=== PATIENT | female | born 1995 | race Caucasian/White ===

== ENCOUNTER → 2020-04-20 14:01 | Outpatient (BNVA) | payer MEDICAID, SELFPAY | PROVIDERS: PCP Family Medicine; Referring Provider Family Medicine; Visit Provider Physician Assistant | DX: A04.8 Other specified bacterial intestinal infections (principal); K52.9 Noninfective gastroenteritis and colitis, unspecified | CPT/HCPCS: 99212 ==

== ENCOUNTER 2020-06-20 09:56 | Outpatient (REF) | payer MEDICAID, SELFPAY ==
[2020-06-20 11:07] LABS: Alanine Aminotransferase 21 U/L (0-31); Albumin Level 4.1 g/dL (3.5-5.0); Alkaline Phosphatase 49 U/L (39-117); Anion Gap 12 (12-20); Aspartate Amino Transferase 18 U/L (5-31); Bilirubin Total 0.2 mg/dL (0.0-1.0); Blood Urea Nitrogen 10 mg/dL (9-16); Calcium 8.4 mg/dL (8.4-10.2); Carbon Dioxide 22 mmol/L (22-29); Chloride 108 mmol/L (96-108); Estimated Glomerular Filt Rate > 60; Glucose Random 92 mg/dL (60-115); Potassium 3.8 mmol/l (3.3-5.1); Sodium 138 mmol/L (135-145); Total Protein 6.6 g/dL (6.5-8.0)
[2020-06-20 11:52] LABS: Erythrocyte Sedimentation Rate 11 MM/HR (0-20)
[2020-06-21 22:43] LABS: Transglutaminase IgA 1 U/mL
[2020-06-22 13:37] LABS: CRP High Sensitivity 4.3 mg/L
[2020-06-24 18:07] LABS: Endomysial IgA Antibody Negative (Negative)
== END 2020-06-20 09:57 | disposition home or self-care (01) ==
LOC: HO.LAB 09:56
PROVIDERS: PCP Family Medicine; Visit Provider Physician Assistant
DX: R19.7 Diarrhea, unspecified (principal); R10.11 Right upper quadrant pain
CPT/HCPCS: 36415; 80053; 83516; 85652; 86141; 86255; 86256

== ENCOUNTER 2020-06-22 14:53 | Outpatient (REF) | payer MEDICAID, SELFPAY ==
[2020-06-22 16:08] LABS: Leukocytes Stool Qualitative NEGATIVE (NEGATIVE)
[2020-06-23 08:04] LABS: CDIFF Ag Negative (Negative); CDIFF Internal ctrl Dots and bkg OK (V); CDiff Toxin Negative (Negative)
== END 2020-06-22 14:54 | disposition home or self-care (01) ==
LOC: HO.LNP 14:53
PROVIDERS: Visit Provider Physician Assistant
DX: R19.7 Diarrhea, unspecified (principal); A04.8 Other specified bacterial intestinal infections
CPT/HCPCS: 87045; 87046; 87324; 87329; 87338; 87449; 89055

== ENCOUNTER → 2020-07-06 13:39 | Outpatient (BNVA) | payer MEDICAID, SELFPAY | PROVIDERS: PCP Family Medicine; Visit Provider Physician Assistant ==

== ENCOUNTER 2020-09-22 16:02 | Outpatient (REF) | payer MEDICAID, SELFPAY | END 2020-09-22 16:03 | disposition home or self-care (01) | LOC: HO.LAB 16:02 | PROVIDERS: PCP Family Medicine; Visit Provider Physician Assistant | DX: Z13.89 Encounter for screening for other disorder (principal) ==

== ENCOUNTER 2020-09-23 18:12 | Outpatient (REF) | payer MEDICAID, SELFPAY | END 2020-09-23 18:13 | disposition home or self-care (01) | LOC: HO.LNP 18:12 | PROVIDERS: Visit Provider Physician Assistant | DX: A04.8 Other specified bacterial intestinal infections (principal) | CPT/HCPCS: 87338 ==

== ENCOUNTER → 2020-10-08 11:06 | Outpatient (BNVA) | payer MEDICAID, SELFPAY | PROVIDERS: Visit Provider Physician Assistant ==

== ENCOUNTER 2020-12-20 02:38 | Emergency (ER) | payer MEDICAID, SELFPAY ==
--- NOTE | ~2020-12-20 | XR_ITS ---
EXAMINATION: XR CHEST CLINICAL INFORMATION: Shortness of breath COMPARISON: 03/01/2018 TECHNIQUE: Frontal view of the chest was obtained. FINDINGS: The lungs are well expanded. There is no focal consolidation, edema, or effusion. No pneumothorax. The cardiomediastinal silhouette is within normal limits. No acute osseous abnormality. XR/XR chest 1V IMPRESSION: Clear lungs.
[2020-12-20 03:21] VITALS: BP 117/73; PULSE 99; RESP 18; TEMP 36.7; O2SAT 100; BMI 36.3
--- NOTE | 2020-12-20 04:26 | ECG_ITS ---
Test Reason : FLANK PAIN Blood Pressure : / mmHG Vent. Rate : 092 BPM Atrial Rate : 092 BPM P-R Int : 130 ms QRS Dur : 084 ms QT Int : 362 ms P-R-T Axes : 030 061 032 degrees QTc Int : 447 ms Normal sinus rhythm with sinus arrhythmia Cannot rule out Anterior infarct , age undetermined Abnormal ECG When compared with ECG of 11-NOV-2017 07:34, No significant change was found Referred By: Bonny Castro Electronically Signed By:AMILCAR REYES
[2020-12-20 05:00] LABS: Basophils Percent Auto 0.4 % (0-2); Hemoglobin 12.8 g/dl (12.0-16.0); PLT CLUMP 1; Red Cell Distribution Width 13.7 % (11.0-16.0); SCAN SMEAR FLAG 1
[2020-12-20] MEDS: 0.9 % Sodium Chloride 1,000 ML 999 ML IV (05:01)
[2020-12-20 05:02] LABS: Eosinophils Absolute Auto 0.7 X10*3/uL (0.0-0.4); Eosinophils Percent Auto 8.4 % (0-4); Hematocrit 40.5 % (37-47); Lymphocytes Absolute Auto 1.9 X10*3/uL (1.2-4.9); Lymphocytes Percent Auto 21.9 % (20-40); Mean Corpuscular HGB Conc 31.6 g/dl (31.0-35.0); Mean Corpuscular Volume 85.4 fL (80-98); Mean Platelet Volume 11.1 fL (9.4-12.3); Monocytes Absolute Auto 0.5 X10*3/uL (0.1-1.2); Monocytes Percent Auto 5.3 % (2-11); Neutrophils Absolute Auto 5.5 X10*3/uL (2.0-8.3); Platelet Count 230 X10*3/uL (160-400); Red Blood Count 4.74 X10*6/uL (4.20-5.50); White Blood Count 8.5 X10*3/uL (4.8-10.8)
[2020-12-20 05:05] LABS: MANUAL DIFF FLAG NO
--- NOTE | 2020-12-20 05:08 | ED_ITS ---
HPI - Abdominal Pain General Chief Complaint: Abdominal Pain Stated Complaint: abd pain 3 days Time Seen by Provider: 12/20/20 04:25 History of Present Illness HPI narrative: Patient is a 25-year-old female history of having chest pain on the left lower rib area. Radiating to the mid axillary area. Radiating to the chest. Patient denies any diaphoresis. The pain is been ongoing for few days. Not associated with coughing, congestion, upper respiratory symptoms. Never had a blood clot. Never had a pneumothorax. The pain is sharp in nature. Patient is from home. No abdominal pain no diarrhea. Positive nausea. Currently rates the pain as 7/10. Related Data Home Medications Medication Instructions Recorded Confirmed budesonide 90 mcg/actuation breath 1 inh INHALATION BID 04/20/20 07/06/20 activated powder inhaler levothyroxine 50 mcg tablet 50 mcg PO DAILY 04/20/20 04/20/20 montelukast 10 mg tablet 10 mg PO DAILY 04/20/20 Previous Rx's Medication Instructions Recorded Saccharomyces boulardii 250 mg 250 mg PO DAILY 30 Days #30 cap 07/06/20 capsule bismuth subsalicylate 262 mg 2 tab PO QID 14 Days #112 tab 07/06/20 chewable tablet doxycycline hyclate 100 mg tablet 100 mg PO BID 14 Days #28 tab 07/06/20 metronidazole 250 mg tablet 250 mg PO QID 14 Days #56 tab 07/06/20 omeprazole 20 mg capsule,delayed 20 mg PO BID 14 Days #28 cap 07/06/20 release dicyclomine 10 mg capsule 10 mg PO TID #90 cap 11/03/20 dicyclomine 10 mg capsule 10 mg PO TID #90 cap 12/16/20 ibuprofen 400 mg PO Q6H PRN #20 tab 12/20/20 Allergies Allergy/AdvReac Type Severity Reaction Status Date / Time No Known Allergies Allergy Unverified 10/08/20 11:07 Review of Systems Review of Systems No fever no chills no diaphoresis. No family history of cardiac issues. No history diabetes, hypertension, mi, family history of [place]. No history smoking. No history of recreational drug use. All systems reviewed otherwise negative Physical Exam Vital Signs: Vital Signs: Last Vital Signs Temp 98.1 F 12/20/20 03:21 Pulse 99 07/11/21 03:21 Resp 18 12/20/20 03:21 BP 117/73 12/20/20 03:21 Pulse Ox 100 12/20/20 03:21 Body Mass Index 36.3 Appearance: Alert. Oriented X3. No acute distress. Eyes: Pupils equal, round and reactive to light. ENT: Pharynx normal. Neck: Normal inspection. Neck supple. No lymph nodes noted. No crepitus CVS: Normal heart rate and rhythm. Pulses normal. Normal S1 and S2 Respiratory: No respiratory distress. Breath sounds normal. No Wheezing. No ra les Abdomen: Soft and nontender. No rigidity. No distention. good BS x4 Skin: Skin warm and dry. Normal skin color. Normal skin turgor. Extremities: No lower extremity edema. Neurovascular intact to all extremities. No Lacerations. No Rash Neuro: Oriented X 3. No motor deficit. No sensory deficit. Moving all extermities. No slurred speech MDM - Abdominal Pain MDM Narrative Medical decision making narrative: Patient's D-dimer is less than 200 no evidence for PE in the setting of low risk. Patient's chest x-ray showed no evidence of pneumonia pneumothorax. Patient's electrolytes unremarkable LFTs are normal. Lipase is normal no evidence of pancreatitis. Will discharge patient home close follow-up on an outpatient basis. Urine showed no signs of infection. test negative unlikely ectopic. Will discharge patient home with Motrin. Differential Diagnosis Differential diagnosis: Likely abdominal pain, acute appendicitis, bowel perforation, constipation and gastritis Medical Records Attestation: I reviewed the patient's medical records. Lab Data Attestation: I reviewed the patient's lab results. Result diagrams: 12/20/20 04:55 12/20/20 05:45 Labs: Lab Results 12/20/20 12/20/20 12/20/20 Range/Units 04:55 04:55 05:15 WBC 8.5 (4.8-10.8) X10*3/uL RBC 4.74 (4.20-5.50) X10*6/uL Hgb 12.8 (12.0-16.0) g/dl Hct 40.5 (37-47) % MCV 85.4 (80-98) fL MCH 27.0 (27.0-33.0) pg MCHC 31.6 (31.0-35.0) g/dl RDW 13.7 (11.0-16.0) % Plt Count 230 (160-400) X10*3/uL MPV 11.1 (9.4-12.3) fL Immature Gran % (Auto) 0.0 (0.0-0.4) % Neut % (Auto) 64.0 (45-73) % Lymph % (Auto) 21.9 (20-40) % [place] % (Auto) 5.3 (2-11) % Eos % (Auto) 8.4 H (0-4) % Baso % (Auto) 0.4 (0-2) % Lymph # (Auto) 1.9 (1.2-4.9) X10*3/uL [place] # (Auto) 0.5 (0.1-1.2) X10*3/uL Eos # (Auto) 0.7 H (0.0-0.4) X10*3/uL Baso # (Auto) 0.0 (0.0-0.2) X10*3/uL Abs Immat Gran (auto) 0.00 (0.00-0.03) X10*3/uL Absolute Neuts (auto) 5.5 (2.0-8.3) X10*3/uL Absolute Nucleated RBC 0.000 (0.0-0.012) X10*3/uL Nucleated RBC % (auto) 0.0 (0.0-0.2) /100WBC D-Dimer < 200 NG/ML Sodium (135-145) mmol/L Potassium (3.3-5.1) mmol/L Chloride (96-108) mmol/L Carbon Dioxide (22-29) mmol/L Anion Gap (12-20) BUN (9-16) mg/dL Creatinine (0.5-1.4) mg/dL Estim Creat Clear Calc Estimated GFR Random Glucose (60-115) mg/dL Calcium (8.4-10.2) mg/dL Total Bilirubin (0.0-1.0) mg/dL AST (5-31) U/L ALT (0-31) U/L Alkaline Phosphatase (39-117) U/L Total Protein (6.5-8.0) g/dL Albumin (3.5-5.0) g/dL Lipase (8-78) U/L Urine Color YELLOW Urine Appearance CLEAR Urine pH 6.0 (5.0-8.0) Ur Specific [place] 1.010 (1.005-1.025) Urine Protein NEG (NEG-TRACE) MG/DL Urine Glucose (UA) NEG (NEG) MG/DL Urine Ketones NEG (NEG) MG/DL Urine Blood NEG (NEG) Urine Nitrite NEG (NEG) Ur Leukocyte Esterase NEG (NEG) Urine Test (NEGATIVE) 12/20/20 12/20/20 Range/Units 05:15 05:45 WBC (4.8-10.8) X10*3/uL RBC (4.20-5.50) X10*6/uL Hgb (12.0-16.0) g/dl Hct (37-47) % MCV (80-98) fL MCH (27.0-33.0) pg MCHC (31.0-35.0) g/dl RDW (11.0-16.0) % Plt Count (160-400) X10*3/uL MPV (9.4-12.3) fL Immature Gran % (Auto) (0.0-0.4) % Neut % (Auto) (45-73) % Lymph % (Auto) (20-40) % [place] % (Auto) (2-11) % Eos % (Auto) (0-4) % Baso % (Auto) (0-2) % Lymph # (Auto) (1.2-4.9) X10*3/uL [place] # (Auto) (0.1-1.2) X10*3/uL Eos # (Auto) (0.0-0.4) X10*3/uL Baso # (Auto) (0.0-0.2) X10*3/uL Abs Immat Gran (auto) (0.00-0.03) X10*3/uL Absolute Neuts (auto) (2.0-8.3) X10*3/uL Absolute Nucleated RBC (0.0-0.012) X10*3/uL Nucleated RBC % (auto) (0.0-0.2) /100WBC D-Dimer NG/ML Sodium 140 (135-145) mmol/L Potassium 4.0 (3.3-5.1) mmol/L Chloride 108 (96-108) mmol/L Carbon Dioxide 24 (22-29) mmol/L Anion Gap 12 (12-20) BUN 10 (9-16) mg/dL Creatinine 0.80 (0.5-1.4) mg/dL Estim Creat Clear Calc 100.2 Estimated GFR > 60 Random Glucose 86 (60-115) mg/dL Calcium 9.0 D (8.4-10.2) mg/dL Total Bilirubin 0.4 (0.0-1.0) mg/dL AST 16 (5-31) U/L ALT 16 (0-31) U/L Alkaline Phosphatase 46 (39-117) U/L Total Protein 6.7 (6.5-8.0) g/dL Albumin 4.0 (3.5-5.0) g/dL Lipase 31 (8-78) U/L Urine Color Urine Appearance Urine pH (5.0-8.0) Ur Specific [place] (1.005-1.025) Urine Protein (NEG-TRACE) MG/DL Urine Glucose (UA) (NEG) MG/DL Urine Ketones (NEG) MG/DL Urine Blood (NEG) Urine Nitrite (NEG) Ur Leukocyte Esterase (NEG) Urine Test NEGATIVE (NEGATIVE) Discharge Plan Discharge Clinical Impression: Acute chest wall pain Patient Disposition: Home, Self-Care Instructions: Chest Wall Pain (ED) Prescriptions: New ibuprofen 400 mg tablet 400 mg PO Q6H PRN (Reason: pain) Qty: 20 RF: 0 No Action dicyclomine 10 mg capsule 10 mg PO TID Qty: 90 RF: 0 dicyclomine 10 mg capsule 10 mg PO TID Qty: 90 RF: 0 montelukast [Singulair] 10 mg tablet 10 mg PO DAILY RF: 0 Pulmicort Flexhaler 90 mcg/actuation aerosol powdr breath activated 1 inh inhalation BID RF: 0 levothyroxine 50 mcg tablet 50 mcg PO DAILY RF: 0 omeprazole 20 mg capsule,delayed release(DR/EC) 20 mg PO BID 14 Days Qty: 28 RF: 0 bismuth subsalicylate [Bismuth] 262 mg tablet,chewable 2 tab PO QID 14 Days Qty: 112 RF: 0 metronidazole 250 mg tablet 250 mg PO QID 14 Days Qty: 56 RF: 0 doxycycline hyclate 100 mg tablet 100 mg PO BID 14 Days Qty: 28 RF: 0 Saccharomyces boulardii [Florastor] 250 mg capsule 250 mg PO DAILY 30 Days Qty: 30 RF: 5 Referrals: Becky Mackenzie MD [Primary Care Provider] - 2 days [facility] Past Medical History Attestation statement: The following information was validated with the patient. Medical History Asthma dependent on inhaled steroids Chronic diarrhea IBS (irritable bowel syndrome) Family History Family History Mother No problems noted. Social History Social History Household Members: Family Household Members Other:: single -lives with her family Alcohol intake: current Alcohol intake frequency: a few times a month Advance Directives: No Patient : No Current occupational status: unemployed
[2020-12-20 05:22] LABS: Appearance Urine CLEAR; Color Urine YELLOW; Glucose Urine UA NEG (NEG); Leukocyte Esterase Urine NEG (NEG); Nitrite Urine NEG (NEG); Urine Blood NEG (NEG); Urine Ketones NEG (NEG); Urine Protein NEG (NEG-TRACE)
[2020-12-20 05:22] LABS: D Dimer < 200 NG/ML
[2020-12-20 05:24] LABS: UPreg QC Valid YES; Urine Pregnancy NEGATIVE (NEGATIVE)
[2020-12-20 06:23] LABS: Alanine Aminotransferase 16 U/L (0-31); Alkaline Phosphatase 46 U/L (39-117); Anion Gap 12 (12-20); Aspartate Amino Transferase 16 U/L (5-31); Bilirubin Total 0.4 mg/dL (0.0-1.0); Blood Urea Nitrogen 10 mg/dL (9-16); Carbon Dioxide 24 mmol/L (22-29); Chloride 108 mmol/L (96-108); Creatinine Clr Calc Pharmacy 100.2; Estimated Glomerular Filt Rate > 60; Glucose Random 86 mg/dL (60-115); Lipase 31 U/L (8-78); Sodium 140 mmol/L (135-145); Total Protein 6.7 g/dL (6.5-8.0)
== END 2020-12-20 06:48 | disposition home or self-care (01) ==
PROVIDERS: Emergency Provider Emergency Medicine Emergency Medical Services; PCP Family Medicine
DX: R07.89 Other chest pain (principal); J45.909 Unspecified asthma, uncomplicated; Z79.51 Long term (current) use of inhaled steroids
CPT/HCPCS: 36415; 71045; 80053; 81003; 81025; 83690; 85025; 85379; 93005; 96360; 99283; 99284

== ENCOUNTER 2020-12-22 10:35 | Outpatient (REF) | payer MEDICAID, SELFPAY ==
[2020-12-23 13:51] LABS: H Pylori Breath Test NOT DETECTED (NOT DETECTED)
== END 2020-12-22 10:36 | disposition home or self-care (01) ==
LOC: HO.LNP 10:35
PROVIDERS: Physician Assistant; PCP Family Medicine; Referring Provider Family Medicine; Visit Provider Internal Medicine Gastroenterology
DX: A04.8 Other specified bacterial intestinal infections (principal)
CPT/HCPCS: 83013

== ENCOUNTER → 2021-03-04 10:03 | Outpatient (BNVA) | payer MEDICAID, SELFPAY | PROVIDERS: PCP Family Medicine; Referring Provider Family Medicine; Visit Provider Physician Assistant ==

== ENCOUNTER 2022-03-09 13:14 | Emergency (ER) | payer MEDICAID, SELFPAY ==
--- NOTE | ~2022-03-09 | XR_ITS ---
EXAMINATION: XR CHEST CLINICAL INFORMATION: Chest pain. COMPARISON: 12/20/2020 chest radiograph. TECHNIQUE: 2 views of the chest were obtained. FINDINGS: No significant abnormality is noted involving the heart, lungs, mediastinum, bony thorax or soft tissues. XR/XR chest 2V IMPRESSION: No acute cardiopulmonary process.
--- NOTE | 2022-03-09 13:16 | ECG_ITS ---
Test Reason : chest pain Blood Pressure : / mmHG Vent. Rate : 095 BPM Atrial Rate : 095 BPM P-R Int : 122 ms QRS Dur : 074 ms QT Int : 328 ms P-R-T Axes : -03 049 030 degrees QTc Int : 412 ms Normal sinus rhythm Normal ECG When compared with ECG of 20-DEC-2020 04:59, No significant change was found Referred By: Generic ED Physician Electronically Signed By:PONCE IGLESIAS
[2022-03-09 14:07] VITALS: BP 119/86; PULSE 95; RESP 16; TEMP 36.3; O2SAT 100; BMI 40.4
[2022-03-09 14:33] LABS: MANUAL DIFF FLAG NO
[2022-03-09 14:37] LABS: Basophils Percent Auto 0.4 % (0-2); Eosinophils Absolute Auto 0.3 X10*3/uL (0.0-0.4); Eosinophils Percent Auto 3.3 % (0-4); Hematocrit 40.7 % (37.0-47.0); Hemoglobin 12.5 g/dl (12.0-16.0); Imm Gran Abs Auto 0.03 X10*3/uL (0.00-0.03); Imm Gran Pct Auto 0.4 % (0.0-0.4); Lymphocytes Absolute Auto 1.3 X10*3/uL (1.2-4.9); Lymphocytes Percent Auto 16.1 % (20-40); Mean Corpuscular HGB Conc 30.7 g/dl (31.0-35.0); Mean Corpuscular Hemoglobin 25.9 pg (27.0-33.0); Mean Corpuscular Volume 84.3 fL (80.0-98.0); Mean Platelet Volume 11.1 fL (9.4-12.3); Monocytes Absolute Auto 0.4 X10*3/uL (0.1-1.2); Monocytes Percent Auto 5.5 % (2-11); Neutrophils Absolute Auto 5.9 x10*3/uL (2.0-8.3); Neutrophils Percent Auto 74.3 % (45-73); Platelet Count 245 X10*3/uL (160-400); Red Blood Count 4.83 X10*6/uL (4.20-5.50); White Blood Count 7.9 X10*3/uL (4.8-10.8)
[2022-03-09 14:54] LABS: Anion Gap 13 (12-20); Blood Urea Nitrogen 12 mg/dL (9-16); Calcium 8.9 mg/dL (8.4-10.2); Carbon Dioxide 25 mmol/L (22-29); Chloride 105 mmol/L (96-108); Creatinine Clr Calc Pharmacy 114.1; Estimated Glomerular Filt Rate > 60; Glucose Random 82 mg/dL (60-115); Potassium 4.2 mmol/L (3.3-5.1); Sodium 139 mmol/L (135-145)
[2022-03-09 15:00] LABS: Troponin-I High Sensitivity < 3.5 ng/L (<3.5-17.0)
[2022-03-09 23:52] VITALS: BP 118/63; PULSE 86; RESP 18; TEMP 36.5; O2SAT 100
--- NOTE | 2022-03-10 00:55 | ED_ITS ---
HPI - General Adult General Chief complaint: General Medical Stated complaint: Sharp chest pain L side of chest for a few days Time Seen by Provider: 03/10/22 01:21 Source: patient Mode of arrival: ambulatory Limitations: no limitations History of Present Illness HPI narrative: 26-year-old female presents for 3 days of intermittent sharp stabbing pain to the left nipple and breast. Patient does not report any nipple discharge, trauma, or . Does not report any abnormal breast tissue or lumps or masses. Onset (ago): day(s) (3) Location: chest (Left breast) Severity: severe Severity scale (1-10): 10 Quality: stabbing Pain Consistency: intermittent and now resolved Relieving factors: none Exacerbating factors: none Associated symptoms: denies other symptoms Treatments prior to arrival: none Related Data Home Medications Medication Instructions Recorded Confirmed budesonide 90 mcg/actuation breath 1 inh inhalation BID 04/20/20 03/04/21 activated powder inhaler (Pulmicort Flexhaler) levothyroxine 50 mcg tablet 50 mcg PO DAILY 04/20/20 03/04/21 montelukast 10 mg tablet 10 mg PO DAILY 04/20/20 03/04/21 (Singulair) Previous Rx's Medication Instructions Recorded Saccharomyces boulardii 250 mg 250 mg PO DAILY 30 days #30 caps 07/06/20 capsule (Florastor) doxycycline hyclate 100 mg tablet 100 mg PO BID 14 days #28 tabs 07/06/20 metronidazole 250 mg tablet 250 mg PO QID 14 days #56 tabs 07/06/20 omeprazole 20 mg capsule,delayed 20 mg PO BID 14 days #28 caps 07/06/20 release ibuprofen 400 mg tablet 400 mg PO Q6H PRN pain #20 tabs 12/20/20 dicyclomine 10 mg capsule 10 mg PO TID #90 caps 03/15/21 Allergies Allergy/AdvReac Type Severity Reaction Status Date / Time No Known Allergies Allergy Verified 03/09/22 14:06 Review of Systems Review of Systems: Constitutional: No Fever, No Chills ENT/Mouth: No Ear Pain, No Hoarseness, No sore throat Eyes: No Eye Pain, No Swelling, No Redness, No Foreign Body Cardiovascular: No Chest Pain, No SOB Respiratory: No Cough, No Dyspnea Gastrointestinal: No Nausea, No Vomiting, No Diarrhea, No abdominal Pain Genitourinary: Positive left breast and nipple pain, No Dysuria, No Hematuria Musculoskeletal: No joint pain, No Myalgias, No Joint Swelling Skin: No Skin lacerations, No rash Neuro: No Weakness, No Numbness, No Paresthesias, No Loss of Consciousness, No Dizziness, No Headache Psych: No Anxiety/Panic, No Depression Heme/Lymph: no easy bruising, no Lymphadenopathy Endocrine: No Polyuria, No Polydipsia Yes all other systems are reviewed and are negative [facility] Past Medical History Attestation statement: The following information was validated with the patient. Source: old records reviewed Medical History Asthma dependent on inhaled steroids Chronic diarrhea Food allergy IBS (irritable bowel syndrome) Family History Family History Mother No problems noted. Social History Social History Household Members: Family Household Members Other:: single -lives with her family Alcohol intake: current Alcohol intake frequency: a few times a month Advance Directives: No Advance Directives Information Provided: No Current occupational status: unemployed Physical Exam ED Vital Signs: Vital Signs - 24 hr 03/09/22 14:07 03/09/22 23:52 03/10/22 01:01 Temperature 97.4 F 97.7 F 97.8 F Pulse Rate 95 86 84 Respiratory Rate 16 18 18 Blood Pressure 119/86 118/63 132/67 Pulse Oximetry 100 100 100 Oxygen Delivery Method Room Air Room Air Room Air BMI result Body Mass Index 40.4 Appearance: Alert. Oriented X3. No acute distress. Eyes: Pupils equal, round and reactive to light. ENT: Pharynx normal. Neck: Normal inspection. Neck supple. CVS: Normal heart rate and rhythm. Pulses normal. Respiratory: No respiratory distress. Breath sounds normal. Abdomen: Soft and nontender. Skin: Skin warm and dry. Normal skin color. Normal skin turgor. Extremities: No lower extremity edema. Gait well-balanced well coordinated. Neuro: No motor deficit. No sensory deficit. Cranial nerves 2-12 intact. Course Course Course Narrative: Patient has been in the waiting room for 11 hours. 26-year-old female presents with left nipple and breast pain that has been a sharp stabbing pain intermittent over the past 3 days. Does not report trauma, abnormal nipple discharge, masses, or wounds. Labs are unremarkable, chest x- ray is negative, EKG is normal sinus. At this time I feel this patient should follow-up with breast Clinic for ultrasound. The pain has now resolved, patient is alert oriented x4, answering questions politely and appropriately, gait well balanced well coordinated. Afebrile and nontoxic I did discuss in detail that patient needs a breast specialist for ultrasound. Patient verbalized understanding of and agrees to plan of care discharge home. Verbalized understanding of signs symptoms indicating need for emergent intervention. Medical Decision Making Differential Diagnosis Differential Diagnosis: Nipple pain, costochondritis, pleurisy Medical Records Medical records reviewed: Yes I reviewed the patient's medical records. Lab Data Lab results reviewed: Yes I reviewed the patient's lab results. Result diagrams: 03/09/22 14:25 03/09/22 14:25 Labs: Lab Results 03/09/22 03/09/22 03/09/22 Range/Units 14:25 14:25 14:25 WBC 7.9 (4.8-10.8) X10*3/uL RBC 4.83 (4.20-5.50) X10*6/uL Hgb 12.5 (12.0-16.0) g/dl Hct 40.7 (37.0-47.0) % MCV 84.3 (80.0-98.0) fL MCH 25.9 L (27.0-33.0) pg MCHC 30.7 L (31.0-35.0) g/dl RDW 14.0 (11.0-16.0) % Plt Count 245 (160-400) X10*3/uL MPV 11.1 (9.4-12.3) fL Immature Gran % (Auto) 0.4 (0.0-0.4) % Neut % (Auto) 74.3 H (45-73) % Lymph % (Auto) 16.1 L (20-40) % [place] % (Auto) 5.5 (2-11) % Eos % (Auto) 3.3 (0-4) % Baso % (Auto) 0.4 (0-2) % Lymph # (Auto) 1.3 (1.2-4.9) X10*3/uL [place] # (Auto) 0.4 (0.1-1.2) X10*3/uL Eos # (Auto) 0.3 (0.0-0.4) X10*3/uL Baso # (Auto) 0.0 (0.0-0.2) X10*3/uL Abs Immat Gran (auto) 0.03 (0.00-0.03) X10*3/uL Absolute Neuts (auto) 5.9 (2.0-8.3) x10*3/uL Absolute Nucleated RBC 0.000 (0.0-0.012) X10*3/uL Nucleated RBC % (auto) 0.0 (0.0-0.2) /100WBC Sodium 139 (135-145) mmol/L Potassium 4.2 (3.3-5.1) mmol/L Chloride 105 (96-108) mmol/L Carbon Dioxide 25 (22-29) mmol/L Anion Gap 13 (12-20) BUN 12 (9-16) mg/dL Creatinine 0.74 (0.5-1.4) mg/dL Estim Creat Clear Calc 114.1 Estimated GFR > 60 Random Glucose 82 (60-115) mg/dL Calcium 8.9 (8.4-10.2) mg/dL Troponin I High Sens < 3.5 (<3.5-17.0) ng/L TSH 2.00 (0.32-4.0) uIU/mL Imaging Data Chest x-ray: Attestation: I personally reviewed and interpreted this imaging study as follows: Radiologist's impression: EXAMINATION: XR CHEST CLINICAL INFORMATION: Chest pain. COMPARISON: 12/20/2020 chest radiograph. TECHNIQUE: 2 views of the chest were obtained. FINDINGS: No significant abnormality is noted involving the heart, lungs, mediastinum, bony thorax or soft tissues. XR/XR chest 2V IMPRESSION: No acute cardiopulmonary process. ECG Data Attestation: I personally reviewed and interpreted this ECG as follows: Prior ECG tracings: available for review Interpretation: Vent. rate 95 BPM TX interval 122 ms QRS duration 74 ms QT/QTc 328/412 ms P-R-T axes -3 49 30 Normal sinus rhythm Normal ECG When compared with ECG of 20-DEC-2020 04:59, No significant change was found 09-MAR-2022 13:19:26 Discharge Plan Discharge Clinical Impression: Nipple pain, Breast pain Patient Disposition: Home, Self-Care Instructions: Noncardiac Chest Pain (ED) Additional Instructions: You were evaluated for left breast and nipple pain. [facility] appointment. Please describe your symptoms in detail when you call tomorrow. Your lab values are within normal limits. Your chest x-ray is negative for acute findings. Your EKG is normal sinus rhythm. Your cardiac enzymes are negative You need to be evaluated by a breast specialist for this nipple and breast pain. Take Tylenol and Motrin as needed for pain management. Follow-up with primary care provider as needed. Return to the emergency department for any new, concerning, or worsening symptoms Prescriptions: No Action dicyclomine 10 mg capsule 10 mg PO TID Qty: 90 3RF ibuprofen 400 mg tablet 400 mg PO Q6H PRN (Reason: pain) Qty: 20 0RF montelukast [Singulair] 10 mg tablet 10 mg PO DAILY Pulmicort Flexhaler 90 mcg/actuation aerosol powdr breath activated 1 inh inhalation BID levothyroxine 50 mcg tablet 50 mcg PO DAILY omeprazole 20 mg capsule,delayed release(DR/EC) 20 mg PO BID 14 Days Qty: 28 0RF metronidazole 250 mg tablet 250 mg PO QID 14 Days Qty: 56 0RF doxycycline hyclate 100 mg tablet 100 mg PO BID 14 Days Qty: 28 0RF Saccharomyces boulardii [Florastor] 250 mg capsule 250 mg PO DAILY 30 Days Qty: 30 5RF Rx Instructions: swallow whole Referrals: [facility] [place] [facility] [Provider Group] - 1 day (nipple and breast pain) Stand Alone Forms: Work/School Release
[2022-03-10 01:01] VITALS: BP 132/67; PULSE 84; RESP 18; TEMP 36.6; O2SAT 100
[2022-03-10 01:32] LABS: Troponin-I High Sensitivity < 3.5 ng/L (<3.5-17.0)
== END 2022-03-10 01:46 | disposition home or self-care (01) ==
PROVIDERS: Emergency Provider Internal Medicine; PCP Family Medicine
DX: N64.4 Mastodynia (principal)
CPT/HCPCS: 36415; 71046; 80048; 84443; 84484; 85025; 93005; 99283

== ENCOUNTER → 2022-07-14 13:05 | Outpatient (BNVA) | payer MEDICAID, SELFPAY | PROVIDERS: PCP Family Medicine; Visit Provider Nurse Practitioner Family | DX: G47.33 Obstructive sleep apnea (adult) (pediatric) (principal); R06.83 Snoring; R40.0 Somnolence; J45.909 Unspecified asthma, uncomplicated; E66.01 Morbid (severe) obesity due to excess calories; Z68.41 Body mass index [BMI] 40.0-44.9, adult; Z79.52 Long term (current) use of systemic steroids | CPT/HCPCS: 99202 ==

== ENCOUNTER → 2022-09-15 12:59 | Outpatient (BNVA) | payer MEDICAID, SELFPAY | PROVIDERS: PCP Family Medicine; Visit Provider Nurse Practitioner Family | DX: G47.00 Insomnia, unspecified (principal); R40.0 Somnolence; R06.83 Snoring | CPT/HCPCS: 99212 ==

== ENCOUNTER 2023-12-06 15:24 | Outpatient (REF) | payer MEDICAID, SELFPAY ==
[2023-12-06 16:17] LABS: Basophils Absolute Auto 0.1 X10*3/uL (0.0-0.2); Basophils Percent Auto 0.6 % (0-2); Eosinophils Absolute Auto 3.1 X10*3/uL (0.0-0.4); Eosinophils Percent Auto 34.5 % (0-4); Hemoglobin 12.7 g/dl (12.0-16.0); Imm Gran Abs Auto 0.02 X10*3/uL (0.00-0.03); Imm Gran Pct Auto 0.2 % (0.0-0.4); Lymphocytes Absolute Auto 1.5 X10*3/uL (1.2-4.9); Lymphocytes Percent Auto 16.8 % (20-40); MANUAL DIFF FLAG SCAN; Mean Corpuscular Hemoglobin 25.9 pg (27.0-33.0); Mean Corpuscular Volume 83.5 fL (80.0-98.0); Mean Platelet Volume 12.2 fL (9.4-12.3); Monocytes Absolute Auto 0.3 X10*3/uL (0.1-1.2); Monocytes Percent Auto 3.7 % (2-11); Neutrophils Absolute Auto 3.9 x10*3/uL (2.0-8.3); Neutrophils Percent Auto 44.2 % (45-73); Platelet Count 172 X10*3/uL (160-400); Red Blood Count 4.91 X10*6/uL (4.20-5.50); Red Cell Distribution Width 14.8 % (11.0-16.0); SCAN SMEAR FLAG 1; White Blood Count 8.9 X10*3/uL (4.8-10.8)
[2023-12-06 16:42] LABS: SLIDE REVIEW VERIFIED
[2023-12-06 16:43] LABS: Alanine Aminotransferase 31 U/L (0-31); Albumin Level 3.9 g/dL (3.5-5.0); Alkaline Phosphatase 65 U/L (39-117); Anion Gap 12 (12-20); Aspartate Amino Transferase 27 U/L (5-31); Bilirubin Total 0.3 mg/dL (0.0-1.0); Blood Urea Nitrogen 8 mg/dL (9-16); Calcium 8.9 mg/dL (8.4-10.2); Carbon Dioxide 25 mmol/L (22-29); Chloride 108 mmol/L (96-108); Estimated Glomerular Filt Rate > 60; Glucose Random 78 mg/dL (60-115); Lipase 22 U/L (8-78); Potassium 3.7 mmol/L (3.3-5.1); Sodium 141 mmol/L (135-145); Total Protein 7.1 g/dL (6.5-8.0)
== END 2023-12-06 15:25 | disposition home or self-care (01) ==
LOC: HO.HHCL 15:24
PROVIDERS: Visit Provider Internal Medicine
DX: R10.10 Upper abdominal pain, unspecified (principal)
CPT/HCPCS: 36415; 80053; 83690; 85025

== ENCOUNTER 2023-12-07 17:55 | Outpatient (REF) | payer MEDICAID, SELFPAY ==
[2023-12-07 22:42] LABS: Leukocytes Stool Qualitative NEGATIVE (NEGATIVE)
[2023-12-08 12:59] LABS: Adenovirus F 40/41 Not Detected (Not Detect.); Astrovirus Not Detected (Not Detect.); Campylobacter Not Detected (Not Detect.); Cryptosporidium Not Detected (Not Detect.); Cyclospora cayetanensis Not Detected (Not Detect.); E. coli EAEC Not Detected (Not Detect.); E. coli EPEC Not Detected (Not Detect.); E. coli ETEC Not Detected (Not Detect.); E. coli STEC Not Detected (Not Detect.); Entamoeba histolytica Not Detected (Not Detect.); Giardia lamblia Not Detected (Not Detect.); Norovirus GI/GII Not Detected (Not Detect.); Plesiomonas shigelloides Not Detected (Not Detect.); Rotavirus A Not Detected (Not Detect.); Salmonella Not Detected (Not Detect.); Sapovirus Not Detected (Not Detect.); Shigella sp./EIEC Not Detected (Not Detect.); Vibrio Not Detected (Not Detect.); Vibrio Cholerae Not Detected (Not Detect.); Yersinia enterocolitica Not Detected (Not Detect.)
== END 2023-12-07 17:56 | disposition home or self-care (01) ==
LOC: HO.LNP 17:55
PROVIDERS: Visit Provider Internal Medicine
DX: R19.7 Diarrhea, unspecified (principal)
CPT/HCPCS: 87329; 87338; 87507; 89055

== ENCOUNTER 2024-10-17 12:10 | Outpatient (REF) | payer MEDICAID, SELFPAY ==
[2024-10-17 13:07] LABS: MANUAL DIFF FLAG NO
[2024-10-17 13:22] LABS: Basophils Percent Auto 0.4 % (0-2); Eosinophils Absolute Auto 0.2 X10*3/uL (0.0-0.4); Eosinophils Percent Auto 2.7 % (0-4); Hematocrit 40.3 % (37.0-47.0); Hemoglobin 12.7 g/dl (12.0-16.0); Imm Gran Abs Auto 0.02 X10*3/uL (0.00-0.03); Imm Gran Pct Auto 0.3 % (0.0-0.4); Lymphocytes Absolute Auto 1.4 X10*3/uL (1.2-4.9); Lymphocytes Percent Auto 19.8 % (20-40); Mean Corpuscular HGB Conc 31.5 g/dl (31.0-35.0); Mean Corpuscular Hemoglobin 26.4 pg (27.0-33.0); Mean Corpuscular Volume 83.8 fL (80.0-98.0); Mean Platelet Volume 12.2 fL (9.4-12.3); Monocytes Absolute Auto 0.4 X10*3/uL (0.1-1.2); Monocytes Percent Auto 5.2 % (2-11); Neutrophils Percent Auto 71.6 % (45-73); Platelet Count 212 X10*3/uL (160-400); Red Blood Count 4.81 X10*6/uL (4.20-5.50); Red Cell Distribution Width 14.8 % (11.0-16.0)
--- OUTSIDE RECORDS SUMMARY | 2024-10-17 13:34 | XMS_ITS | Encounter Summary ---
Author Organization [employer] Address [address] [place] [address] [address] [place] [address] Care Team Providers Care Field Sales Engineer Name Role Phone Becky Mackenzie MD Primary Care Provider [phone] Encounter Details Date Type Department Care Team ([facility] st Contact Info) Description 06/09/2022 Abstract [facility] MEDICINE [address], [place] [phone] Becky Mackenzie MD [address], [place] [phone] Social History Tobacco Use Types Packs/Day Years Used Date Smoking Tobacco: Never Passive Smoke Exposure: Never Smokeless Tobacco: Never Depression Answer Date Recorded Patient Health Questionnaire-2 Score 2 06/09/2022 Comments Unknown Sex and Gender Information Value Date Recorded Sex Assigned at Female 06/16/2022 10:07 PM EST Legal Sex Female 8:34 PM EDT Gender Identity Female 06/16/2022 10:07 PM EST Sexual Orientation Straight 06/16/2022 10 :07 PM EST COVID-19 Exposure Response Date Recorded In the last 10 days, have yo u been in contact with someone who was confirmed or suspected to have Coronavirus/COVID-19? No / Unsure 06/09/2022 7:41 AM EST documented as of this encounter Plan of Treatment Not on file documented as of this encounter Visit Diagnoses Not on filedocumented in this encounter Care Teams Field Sales Engineer Relationship Specialty Start Date End Date Becky Mackenzie MD [address], [place] [phone] PCP - General Family Medicine 06/12/18 documented as of this encounter
--- OUTSIDE RECORDS SUMMARY | 2024-10-17 13:34 | XMS_ITS | Clinical Summary ---
Author Organization [employer] Address [address] [place] [address] [address] [place] [address] Care Team Providers Care Granulator Tender Name Role Phone Becky Mackenzie MD Primary Care Provider [phone] Allergies No known active allergies Medications Ventolin HFA 108 (90 Base) MCG/ACT inhaler TAKE 2 PUFFS BY MOUTH EVERY 4 TO 6 HOURS NEEDED 2 Active albuterol (2.5 MG/3ML) 0.083% nebulizer solution inhale 3 milliliter by nebulization route every 4 hours as needed for asthma symptoms, do not exceed > 4 treatments per day 0 Active clotrimazole (Mycelex) 10 MG félix TAKE 1 TABLET BY ORAL ROUTE 5 TIMES EVERY DAY DISSOLVED SLOWLY IN THE MOUTH FOR 7-14 DAYS 2 Active triamcinolone (Nasacort) 55 MCG/ACT nasal inhaler USE 1-2 SPRAYS IN EACH NOSTRIL DAILY 2 Active loratadine (Claritin) 10 MG tabletIndication s:Allergic rhinitis, unspecified seasonality, unspecified trigger Take 1 tablet (10 mg) by mouth in the morning. 90 tablet 1 3 Active levothyroxine (Synthroid, Levoxyl) 50 MCG tablet TAKE 1 TABLET BY MOUTH EVERY DAY 90 tablet 3 4 Active famotidine (Pepcid) 20 MG tabletIndication s:Upper abdominal pain Take 1 tablet (20 mg) by mouth 2 times daily. 30 tablet 4 025 Active Breo Ellipta 100-25 MCG/ACT aerosol powderIndication s:Moderate persistent asthma without complication INHALE 1 PUFF BY INHALATION ROUTE EVERY DAY AT THE SAME TIME EACH DAY 60 each 6 4 Active montelukast (Singulair) 10 MG tabletIndication s:Allergic rhinitis, unspecified seasonality, unspecified trigger TAKE 1 TABLET BY MOUTH EVERY DAY IN THE EVENING 90 tablet 3 5 Active dicyclomine (Bentyl) 20 MG tabletIndication s:Irritable bowel syndrome with both constipation and diarrhea TAKE 1 TABLET (20 MG) BY MOUTH IN THE MORNING, AT NOON AND AT BEDTIME 270 tablet 5 Active clobetasol (Temovate) 0.05 % ointment Apply to affected area once or twice daily. Apply immediately after shower. Dry the area with towel gently before application. 60 g 1 5 Active omeprazole (PriLOSEC) [address] capsule Take 1 capsule (20 mg) by mouth before breakfast. Do not crush or chew. 90 capsule 3 5 026 Active Active Problems Problem Noted Date Diagnosed Date Diarrhea 12/06/2023 Assessment & Plan (12/06/2023 4:09 PM EDT): Drink plenty of fluids Patient will be contacted with results Upper abdominal pain 12/06/2023 Assessment & Plan (12/06/2023 4:10 PM EDT): Patient will be contacted with results I advise patient to avoid NSAIDs, spicy and acid food, I advise to eat at the same time every day, I advise to elevate the head of the bed and take medications as prescribe Sleep disturbance 10/27/2022 Assessment & Plan (10/27/2022 1:14 PM EDT): Pt has been following with Sleep Medicine Clinic Provider -Needs to complete home-sleep study Encounter for well woman dennis schulte with routine gynecological exam 10/27/2022 Assessment & Plan (10/31/2022 8:48 AM EDT): Pap Smear completed today STI screening IPV screen negative Elevated blood-pressure read ing, without diagnosis of hypertension 10/27/2022 Assessment & Plan (10/31/2022 8:50 AM EDT): -Elevated today, likely due to anxiety -Goal BP < 140/90 per JNC-8 and < 130/80 per ACC/AHA guideline -Family Hx HTN -Continue working on lifestyle modifications -Recommended self-monitoring BP (mother has HTN and has BP monitor) -Follow up in 3-6 mo, sooner if any problem arisesAdvised to check BP at home Oral candidiasis 06/12/2022 Assessment & Plan (06/12/2022 4:31 PM EST): -Recurrent -Likely due to ICS use -Continue proper mouth care -Screen for DM -Evaluate for ADELSO Irritable bowel syndrome (IBS) 06/09/2022 Assessment & Plan (06/09/2022 5:04 AM EST): -Evaluated by GI -Negative celiac disease, H. pylori -Continue dicyclomine Obesity 06/09/2022 History of gonorrhea 04/09/2018 Assessment & Plan (06/09/2022 5:05 AM EST): -Negative chlamydia -Treated Hemorrhoids 02/20/2017 Assessment & Plan (06/12/2022 4:30 PM EST): -avoid prolonged pressure (sitting, lying) -prevent constipation -sitz bath -apply hydrocortisone cream prn Hypothyroidism 02/20/2017 Assessment & Plan (10/31/2022 8:51 AM EDT): -Current replacement levothyroxine 50 mcg daily -Last TSH 2.0 on 03/09/22 -Continue current replacement and check TSH at least annually Assessment & Plan (06/09/2022 5:01 AM EST): -Current replacement levothyroxine 50 mcg daily -Last TSH 2.0 on 03/09/22 -Continue current replacement and check TSH at least annually Asthma 03/30/2015 Assessment & Plan (10/31/2022 8:51 AM EDT): -Followed by Allergy / hemodialysis patient care specialist -Continue Breo -Continue montelukast -Continue albuterol neb and inhaler prn -Continue appropriate mouth care after inhaler use to prevent oral candidiasis Assessment & Plan (06/12/2022 4:31 PM EST): -Followed by Allergy / hemodialysis patient care specialist -Continue Breo -Continue montelukast -Continue albuterol neb and inhaler prn -Continue appropriate mouth care after inhaler use to prevent oral candidiasis Allergic rhinitis 05/22/2012 Assessment & Plan (10/31/2022 8:51 AM EDT): -Followed by allergy / hemodialysis patient care specialist -Continue loratadine 10 mg daily -Continue montelukast 10 mg at bedtime -Continue triamcinolone nasal Assessment & Plan (06/09/2022 5:02 AM EST): -Followed by allergy / hemodialysis patient care specialist -Continue loratadine 10 mg daily -Continue montelukast 10 mg at bedtime -Continue triamcinolone nasal Depression 05/22/2012 Encounters Date Type Department Care Team Description 10/17/2024 11:00 AM EDT Office Visit [address] [address] Becky Mackenzie MD Palpitation (Primary Dx); Acquired hypothyroidism; Allergic rhinitis, unspecified seasonality, unspecified trigger; Moderate persistent asthma without complication; Elevated blood-pressure reading, without diagnosis of hypertension; Diarrhea, unspecified type; Rash; Encounter for immunization 10/17/2024 Travel 10/16/2024 Telephone [facility] [address] [place] [phone] Becky Mackenzie MD Chart Prep 10/11/2024 Travel 10/10/2024 Telephone [facility] [address] [place] [phone] Becky Mackenzie MD 10/10/[address] [address] Becky Mackenzie MD 09/12/[address] [address] Becky Mackenzie MD 08/23/2024 Population Health Risk Score [facility] ([facility] Department [address] [place] [phone] Provider, Population Health Generic 07/29/2024 Refill [facility] [address] [place] [address] Annie Loco MD Irritable bowel syndrome with both constipation and diarrhea from Last 3 Months Immunizations Name Administration Dates Next Due DTaP 01/22/1998, 7,1996,08/12 HPV, Bivalent 05/22/2012 HPV, Quadrivalent 05/27/2013,08/29/2008 Hep A, ped/adol, 2 dose 05/27/2013 Hep B, Adolescent or Pediatric 02/13/1997,1996,1996 Hib (HbOC) 09/11/1997, 7,1996,08/12 Influenza injectable quadriv alent IIV4 with preservative 03/29/2018,03/31/2015 Influenza injectable quadriv alent preservative free 06/09/2022,07/20/2016 Influenza, IIV3, injectable 03/16/2009 Influenza, Split (incl. michael fied surface antigen) 05/27/2013,05/22/2012 Influenza, seasonal, injecta ble, preservative free 07/11/2024 MMR 08/29/2008,1996 Meningococcal MCV4P ACYW-135 05/22/2012,08/30/19 Moderna Covid-19 Vaccine 12+ 06/24/2021,10/08/19 21,09/09/2020 Moderna Covid-19 Vaccine 6+ Bivalent 06/09/2022 OPV, Trivalent 02/13/1997,1996,1996 TD (adult), 2 Lf tetanus tox oid, preservative free, adsorbed 09/18/2018 Tdap 08/29/2008 Social History Tobacco Use Types Packs/Day Years Used Date Smoking Tobacco: Never Passive Smoke Exposure: Never Smokeless Tobacco: Never Tobacco Cessation:Counseling Given: Not Answered Housing Stability Answer Date Recorded What is your housing situation today? I have ana m morejon 04/17/[address] you li ve. Do you have problems with any of the following? None of the above 04/17/2023 Food Insecurity Answer Date Recorded Within the past 12 months, y ou worried that your food would run out before you got money to buy more: Never True 04/17/2023 Within the past 12 months,th e food you bought just didn't last and you didn't have enough money to get more: Never True 11/2022 Transportation Answer Date Recorded In the past 12 months, has l ack of transportation kept you from medical appts, meetings, work or from getting things needed for daily living? No 04/17/2023 Utilities Answer Date Recorded In the past 12 months, has t he electric, gas, oil or water company threatened to shut off services in your home? No 04/17/2023 Depression Answer Date Recorded Patient Health Questionnaire-2 Score 2 06/09/2022 Comments Unknown Sex and Gender Information Value Date Recorded Sex Assigned at Female 06/16/2022 10:07 PM EST Legal Sex Female 8:34 PM EDT Gender Identity Female 06/16/2022 10:07 PM EST Sexual Orientation Straight 06/16/2022 10 :07 PM EST Last Filed Vital Signs Vital Sign Reading Time Taken Comments Blood Pressure 136/72 10/17/2024 11:27 AM EDT Pulse 98 10/17/2024 11:27 AM EDT Temperature 36.1 ??C (96.9 ??F) 10/17/2024 11:27 AM E DT Respiratory Rate 15 10/17/2024 11:27 AM EDT Oxygen Saturation 100% 10/17/2024 11:27 AM EDT Inhaled Oxygen Concentration - - Weight 103 kg (226 lb 12.8 oz) 10/17/2024 11:27 AM EDT Height 149.9 cm (4' 11 ) 10/17/2024 11:27 AM EDT Body Mass Index 45.81 10/17/2024 11:27 AM EDT Plan of Treatment Health Maintenance Due Date Last Done Comments Alcohol/Substance Use Screening 2008 Family Planning (PISQ) 2011 Hepatitis A Vaccines (2 of 2 - 2-dose series) 11/25/2013 05/27/2013 Pneumococcal Vaccine: Pediatrics (0 to 5 Years) and At-Risk Patients (6 to 49) Years) (1 of 2 - PCV) 2015 Depression Screening 06/09/2023 06/09/2022, 06/09/20 SDOH Screening 10/28/2023 10/27/2022 Tobacco Screening 10/17/2025 10/17/2024 Pap Smear 10/27/2025 10/27/2022 Lipid Panel 06/09/2027 06/09/2022 DTaP/Tdap/Td Vaccines (7 - Td or Tdap) 09/18/2028 09/18/2018, 08/29/2008, 01/22/1998, Additional history exists Zoster Vaccines (1 of 2) 2046 RSV Patients and Patients Aged 60 years or older (1 - 1-dose 75+ series) 2071 Hepatitis B Vaccines Completed 02/13/1997, 1996, 1996 IPV Vaccines Discontinued 02/13/1997, 10/11, 1996 HIB Vaccines Completed 09/11/1997, 09/1996, 1996, Additional history exists Meningococcal Vaccine Aged Out 05/22/2012, 009 No longer eligible based on patient's age to complete this topic HPV Vaccines Completed 05/27/2013, 05/12, 08/29/2008 HIV Screening Completed 10/27/2022, 12/2020, 03/12/2020 Hepatitis C Screening Completed 10/27/2022 , 02/16/2021, 03/12/2020 COVID-19 Vaccine Completed 07/11/2024, , 06/24/2021, Additional history exists Influenza Vaccine Completed 07/11/2024, , 03/29/2018, Additional history exists RSV under 20 months Aged Out No longe r eligible based on patient's age to complete this topic Rotavirus Vaccines Aged Out No longer eligible based on patient's age to complete this topic Procedures Procedure Name Priority Date/Time Associated Diagnosis Comments CBC WITH AUTO DIFFERENTIAL Routine 10/17/2024 12:12 PM EDT Palpitation IMAGE-GUIDED PAP W/AGE BASED SCR PROTOCOLS Routine 10/27/2022 10:45 AM EDT Encounter for well woman exam with routine gynecological exam HEPATITIS C AB W/REFL TO HCV RNA, QN, PCR Routine 10/27/2022 10:43 AM EDT Routine screening for STI (sexually transmitted infection) HIV 1/2 ANTIGEN/ANTIBODY, FOURTH GENERATION W/RFL Routine 10/27/2022 10:43 AM EDT Routine screening for STI (sexually transmitted infection) LIPID PANEL, STANDARD Routine 06/09/2022 9:55 AM EST Acquired hypothyroidism from Last 3 Months or Most Recently Relevant to Health Maintenance Results * (ABNORMAL) CBC auto differential (10/17/2024 12:12 PM EDT) White Blood Count 7.0 4.8 - 10.8 X10*3/uL [facility] Red Blood Count 4.81 4.20 - 5.50 X10*6/uL [facility] Hemoglobin 12.7 12.0 - 16.0 g/dl [facility] Hematocrit 40.3 37.0 - 47.0 % [facility] Mean Corpuscular Volume 83.8 80.0 - 98.0 fL [facility] Mean Corpuscular Hemoglobin 26.4(L) 27.0 - 33.0 pg [facility] Mean Corpuscular HGB Conc 31.5 31.0 - 35.0 g/dl [facility] Red Cell Distribution Width 14.8 11.0 - 16.0 % [facility] Platelet Count 212 160 - 400 X10*3/uL [facility] Mean Platelet Volume 12.2 9.4 - 12.3 fL [facility] Neutrophils Percent Auto 71.6 45 - 73 % [facility] Imm Gran Pct Auto 0.3 0.0 - 0.4 % [facility] Lymphocytes Percent Auto 19.8(L) 20 - 40 % [facility] Monocytes Percent Auto 5.2 2 - 11 % [facility] Eosinophils Percent Auto 2.7 0 - 4 % [facility] Basophils Percent Auto 0.4 0 - 2 % [facility] NRBC Pct Auto 0.0 0.0 - 0.2 /100WBC [facility] Neutrophils Absolute Auto 5.0 2.0 - 8.3 x10*3/uL [facility] Imm Gran Abs Auto 0.02 0.00 - 0.03 X10*3/uL [facility] Lymphocytes Absolute Auto 1.4 1.2 - 4.9 X10*3/uL [facility] Monocytes Absolute Auto 0.4 0.1 - 1.2 X10*3/uL [facility] Eosinophils Absolute Auto 0.2 0.0 - 0.4 X10*3/uL [facility] Basophils Absolute Auto 0.0 0.0 - 0.2 X10*3/uL [facility] NRBC Abs Auto 0.000 0.0 - 0.012 X10*3/uL [facility] Blood Venous blood specimen / Unknown 10/17/2024 12:12 PM EDT 10/17/2024 12:58 PM EDT us Becky Mackenzie MD LAB BLOOD ORDERABLES Final Resul t [facility] [address] [place] [phone] * Image-Guided Pap with Age-Based Screening Protocols (10/27/2022 10:45 AM EDT) Comment [facility] Comment: This order for age-based cervical cancer and STI screening follows ACOG guidelines(PB 168, 140, UZQ799). See individual assays for performing site location. Clinical Information: None given [facility] LMP: NONE GIVEN [facility] Prev. PAP: NONE GIVEN [facility] Prev. BX: NONE GIVEN [facility] SOURCE: None given [facility] Statement Of Adequacy: Clean [facility]unn[facility] Comment: Satisfactory for evaluation. Endocervical/transformation zone component present. Interpretation /Result: Negative for intraepithelial lesion or malignancy. [facility] COMMENT: This Pap test has been evaluated with computer assisted technology. [facility] Cytotechnologi st: [facility] Comment: WXW, CT(ASCP) CT Screening Location: [address] [address] (Always Message) [facility] Comment: EXPLANATORY NOTE: The Pap is a screening test for cervical cancer. It is not a diagnostic test and is subject to false negative and false positive results. It is most reliable when a satisfactory sample, regularly obtained, is submitted with relevant clinical findings and history, and when the Pap result is evaluated along with historic and current clinical information. Other 10/27/2022 10:4 5 AM EDT 10/28/2022 12:02 PM EDT Becky Mackenzie MD LAB BLOOD ORDERABLES Final Resul t [address], [place] [address] [facility] [address] [place] [phone] * Hepatitis C Antibody with Reflex to HCV, RNA, Quantitative, Real-Time PCR (10/27/2022 10:43 AM EDT) Hepatitis C Antibody NON-REACT ANABELL NON-REACT ANABELL [facility] Index 0.49 <1.00 [facility] Comment: HCV antibody was non-reactive. There is no laboratory evidence of HCV infection. In most cases, no further action is required. However, if recent HCV exposure is suspected, a test for HCV RNA (test code 32284) is suggested. For additional information please refer to http://education.Rent Here/faq/ZOK49k4 (This link is being provided for informational/ educational purposes only.) Blood Venous blood specimen / Unknown 10/27/2022 10:43 AM EDT 10/27/2022 10:44 AM EDT Narrative [facility] - 10/31/2022 12:57 PM EDT FASTING:NO FASTING: NO Becky Mackenzie MD LAB BLOOD ORDERABLES Final Resul t [facility] [address], [place] [address] [facility] [address] [place] [phone] * HIV-1/2 Antigen and Antibodies, Fourth Generation, with Reflexes (10/27/2022 10:43 AM EDT) HIV Antigen/Antibody, 4th Generation NON-REAC TIVE NON-REAC TIVE [facility] Comment: HIV-1 antigen and HIV-1/HIV-2 antibodies were not detected. There is no laboratory evidence of HIV infection. PLEASE NOTE: This information has been disclosed to you from records whose confidentiality may be protected by state law. ??If your state requires such protection, then the state law prohibits you from making any further disclosure of the information without the specific written consent of the person to whom it pertains, or as otherwise permitted by law. A general authorization for the release of medical or other information is NOT sufficient for this purpose. ?? For additional information please refer to http://education.Rent Here/faq/LSY486 (This link is being provided for informational/ educational purposes only.) The performance of this assay has not been clinically validated in patients less than 2 years old. Blood Venous blood specimen / Unknown 10/27/2022 10:43 AM EDT 10/27/2022 10:44 AM EDT Narrative [facility] - 10/31/2022 12:57 PM EDT FASTING:NO FASTING: NO Becky Mackenzie MD LAB BLOOD ORDERABLES Final Resul t [facility] [address], [place] [address] [facility] [address] [place] [phone] * (ABNORMAL) Lipid Panel, Standard (06/09/2022 9:55 AM EST) Cholesterol, Total 138 <200 mg/dL [facility] HDL Cholesterol 47(L) > OR = 50 mg/dL [facility] Triglycerides 86 <150 mg/dL [facility] LDL Cholesterol 74 mg/dL (calc) [facility] Comment: Reference range: <100 Desirable range <100 mg/dL for primary prevention; ?? <70 mg/dL for patients with CHD or diabetic patients with > or = 2 CHD risk factors. LDL-C is now calculated using the Roz calculation, which is a validated novel method providing better accuracy than the Friedewald equation in the estimation of LDL-C. Valentino SS et al. IBIS. 2013;310(19): 8210-3380 (http://education.Yammer/faq/UDS786) Chol/HDLC Ratio 2.9 <5.0 (calc) [facility] Non-HDL Cholesterol 91 <130 mg/dL (calc) [facility] Comment: For patients with diabetes plus 1 major ASCVD risk factor, treating to a non-HDL-C goal of <100 mg/dL (LDL-C of <70 mg/dL) is considered a therapeutic option. Blood Venous blood specimen / Unknown 06/09/2022 9:55 AM EST 06/09/2022 9:56 AM EST Narrative [facility] - 06/09/2022 9:44 PM EST FASTING:NO FASTING: NO us Becky Mackenzie MD LAB BLOOD ORDERABLES Final Resul t [facility] [address], [place] [address] [facility] [place] [facility] [address] [facility], ([address]) [place] [address] from Last 3 Months or Most Recently Relevant to Health Maintenance Insurance [facility] C3 Care Teams Granulator Tender Relationship Specialty Start Date End Date Becky Mackenzie MD [address] [place] [phone] PCP - General Family Medicine 06/12/18
--- OUTSIDE RECORDS SUMMARY | 2024-10-17 13:34 | XMS_ITS | Encounter Summary ---
Author Organization [employer] Address [address] [place] [address] [address] [place] [address] Care Team Providers Care [employer] Senior Officer Name Role Phone Becky Mackenzie MD Primary Care Provider [phone] Reason for Visit * Reason Comments Med Change Request Encounter Details Date Type Department Care Team ([facility] st Contact Info) Description 06/28/2024 Refill [facility] [address] [place], [place] [phone] Annie Loco MD [address] [place] [address] Irritable bowel syndrome with both constipation and diarrhea Social History Tobacco Use Types Packs/Day Years Used Date Smoking Tobacco: Never Passive Smoke Exposure: Never Smokeless Tobacco: Never Housing Stability Answer Date Recorded What is your housing situation today? I have ana mjohann morejon 04/17/[address] you [...] Orientation Straight 06/16/2022 10 :07 PM EST documented as of this encounter Plan of Treatment Not on file documented as of this encounter Visit Diagnoses Diagnosis Irritable bowel syndrome with both constipation and diarrhea documented in this encounter Care Teams [employer] Senior [employer] Relationship Specialty Start Date End Date Becky Mackenzie MD [address] [place] [address] PCP - General Family Medicine 06/12/18 documented as of this encounter
--- OUTSIDE RECORDS SUMMARY | 2024-10-17 13:34 | XMS_ITS | Encounter Summary ---
Author Organization [employer] Address [address] [place] [address] 7t [place] [address] Care Team Providers Care Manufacturing Engineering Intern Name Role Phone Becky Mackenzie MD Primary Care Provider [phone] Encounter Details Date Type Department Care Team ([facility] st Contact Info) Description 10/17/2024 11:00 AM EDT Office Visit [facility] [address] [place] [address] [phone] Becky Mackenzie MD [address] [place], [place] [phone] Palpitation (Primary Dx); Acquired hypothyroidism; Allergic rhinitis, unspecified seasonality, unspecified trigger; Moderate persistent asthma without complication; Elevated blood-pressure reading, without diagnosis of hypertension; Diarrhea, unspecified type; Rash; Encounter for immunization Social History Tobacco Use Types Packs/Day Years [...] PM EST documented as of this encounter Last Filed Vital Signs Vital Sign Reading [...] Mass Index 45.81 10/17/2024 11:27 AM EDT documented in this encounter Plan of Treatment Scheduled Orders Name Type Priority Associated Diagnoses Orde r Schedule Comprehensive Metabolic Panel Lab Routine Elevated blood-pressure reading, without diagnosis of hypertension Expected: 10/17/2024 (Approximate), Expires: 10/17/2025 TSH with Reflex to Free T4 Lab Routine Palpitation Acquired hypothyroidism Diarrhea, unspecified type Expected: 10/17/2024 (Approximate), Expires: 10/17/2025 Celiac Disease Comprehensive Panel Lab Routine Diarrhea, unspecified type Expected: 10/17/2024, Expires: 10/17/2025 documented as of this encounter Procedures Procedure Name Priority Date/Time Associated Diagnosis Comments CBC WITH AUTO DIFFERENTIAL Routine 10/17/2024 12:12 PM EDT Palpitation documented in this encounter Results * (ABNORMAL) CBC auto differential (10/17/2024 12:12 PM EDT) White Blood Count 7.0 4.8 - 10.8 X10*3/uL [facility] Red Blood Count 4.81 4.20 - 5.50 X10*6/uL [facility] Hemoglobin 12.7 12.0 - 16.0 g/dl [facility] Hematocrit 40.3 37.0 - 47.0 % [facility] Mean Corpuscular Volume 83.8 80.0 - 98.0 fL [facility] Mean Corpuscular Hemoglobin 26.4(L) 27.0 - 33.0 pg [facility] Mean Corpuscular HGB Conc 31.5 31.0 - 35.0 g/dl [facility] Red Cell Distribution Width 14.8 11.0 - 16.0 % [facility] Platelet Count 212 160 - 400 X10*3/uL [facility] Mean Platelet Volume 12.2 9.4 - 12.3 fL [facility] Neutrophils Percent Auto 71.6 45 - 73 % [facility] Imm Gran Pct Auto 0.3 0.0 - 0.4 % [facility] Lymphocytes Percent Auto 19.8(L) 20 - 40 % [facility] Monocytes Percent Auto 5.2 2 - 11 % [facility] Eosinophils Percent Auto 2.7 0 - 4 % [facility] Basophils Percent Auto 0.4 0 - 2 % [facility] NRBC Pct Auto 0.0 0.0 - 0.2 /100WBC [facility] Neutrophils Absolute Auto 5.0 2.0 - 8.3 x10*3/uL [facility] Imm Gran Abs Auto 0.02 0.00 - 0.03 X10*3/uL [facility] Lymphocytes Absolute Auto 1.4 1.2 - 4.9 X10*3/uL [facility] Monocytes Absolute Auto 0.4 0.1 - 1.2 X10*3/uL [facility] Eosinophils Absolute Auto 0.2 0.0 - 0.4 X10*3/uL [facility] Basophils Absolute Auto 0.0 0.0 - 0.2 X10*3/uL [facility] NRBC Abs Auto 0.000 0.0 - 0.012 X10*3/uL [facility] Blood Venous blood specimen / Unknown 10/17/2024 12:12 PM EDT 10/17/2024 12:58 PM EDT Becky Mackenzie MD LAB BLOOD ORDERABLES Final Resul t [facility] [address] [place] [phone] documented in this encounter Visit Diagnoses Diagnosis Palpitation- Primary Palpitations Acquired hypothyroidism Unspecified hypothyroidism Allergic rhinitis, unspecified seasonality, unspecified trigger Moderate persistent asthma without complication Elevated blood-pressure reading, without diagnosis of hypertension Diarrhea, unspecified type Rash Rash and other nonspecific skin eruption Encounter for immunization documented in this encounter Care Teams Manufacturing Engineering Intern Relationship Specialty Start Date End Date Becky Mackenzie MD [address] [place] [phone] PCP - General Family Medicine 06/12/18 documented as of this encounter
--- OUTSIDE RECORDS SUMMARY | 2024-10-17 13:34 | XMS_ITS | Encounter Summary ---
Author Organization [employer] Address [address] [facility] 7t [place] [address] Care Team Providers Care Fuel Cell Designer Name Role Phone Becky Mackenzie MD Primary Care Provider [phone] Encounter Details Date Type Department Care Team (Latest Contact Info) Description 10/17/2024 Travel Social History Tobacco Use Types Packs/Day Years [...] on filedocumented in this encounter Care Teams Fuel Cell Designer Relationship Specialty Start Date End Date Becky Mackenzie MD [address] [place] [address] PCP - General Family Medicine 06/12/18 documented as of this encounter
--- OUTSIDE RECORDS SUMMARY | 2024-10-17 13:34 | XMS_ITS | Encounter Summary ---
Author Organization [employer] Address [address] [facility] 7t [place] [address] Care Team Providers Care Audit Reviewer Name Role Phone Becky Mackenzie MD Primary Care Provider [phone] Encounter Details Date Type Department Care Team (Late st Contact Info) Description 09/12/2024 Abstract [facility] [address] [place], [place] [phone] Becky Mackenzie MD [address] [place], [place] [phone] Social History Tobacco Use Types Packs/Day Years [...] on filedocumented in this encounter Care Teams Audit Reviewer Relationship Specialty Start Date End Date Becky Mackenzie MD [address] [place] [phone] PCP - General Family Medicine 06/12/18 documented as of this encounter
--- OUTSIDE RECORDS SUMMARY | 2024-10-17 13:34 | XMS_ITS | Encounter Summary ---
Author Organization [employer] Address [address] [place] [address] 7 [place] [address] Care Team Providers Care Collet Maker Name Role Phone Becky Mackenzie MD Primary Care Provider [phone] Encounter Details Date Type Department Care Team (Late st Contact Info) Description 08/05/2022 Orders Only [facility] MEDICINE [address] [place] [address] [phone] Becky Mackenzie MD [address] [place] [address] [phone] Vision problem (Primary Dx) Social History Tobacco Use Types Packs/Day Years [...] as of this encounter Visit Diagnoses Diagnosis Vision problem- Primary Problems with sight documented in this encounter Care Teams Collet Maker Relationship Specialty Start Date End Date Becky Mackenzie MD [address] [place] [address] [phone] PCP - General Family Medicine 06/12/18 documented as of this encounter
--- OUTSIDE RECORDS SUMMARY | 2024-10-17 13:34 | XMS_ITS | Encounter Summary ---
Author Organization [employer] Address [address] [facility] 7 [place] [address] Care Team Providers Care Conductor Road Freight Name Role Phone Becky Mackenzie MD Primary Care Provider [phone] Reason for Visit * Reason Onset Date Comments Chart Prep 10/16/2024 Encounter Details Date Type Department Care Team ([facility] st Contact Info) Description 10/16/2024 Telephone [facility] [address] [place], [place] [phone] Becky Mackenzie MD [address] [place], [place] [phone] Chart Prep Social History Tobacco Use Types Packs/Day Years [...] PM EST documented as of this encounter Miscellaneous Notes * Telephone Encounter - Amy Villalobos [place] - 10/16/2024 3:17 PM EDT Chart Prep Labs: done Images: not applicable Vaccines due: Hep A Due and PCV20 Due Referrals: Not Applicable Screenings: Not Applicable Overdue care gaps: Sbirt, SDOH, PQ9, GAD7, Disability , and Oral Health documented in this encounter Plan of Treatment Not on file documented as of this encounter Visit Diagnoses Not on filedocumented in this encounter Care Teams Conductor Road Freight Relationship Specialty Start Date End Date Becky Mackenzie MD [address] [place] [address] PCP - General Family Medicine 06/12/18 documented as of this encounter
--- OUTSIDE RECORDS SUMMARY | 2024-10-17 13:34 | XMS_ITS | Encounter Summary ---
Author Organization [employer] Address [address] [place] [address] [address], [place] [address] Care Team Providers Care Regulatory Internship Name Role Phone Becky Mackenzie MD Primary Care Provider [phone] Reason for Visit * Reason Onset Date Comments Appointment Request 09/14/2022 Encounter Details Date Type Department Care Team ([facility] st Contact Info) Description 09/14/2022 Telephone [facility] [address] [place], [place] [phone] Becky Mackenzie MD [address] [place] [address] Appointment Request Social History Tobacco Use Types Packs/Day Years [...] encounter Miscellaneous Notes * Telephone Encounter - Joaquin Guillen - 09/14/2022 10:34 AM EDT Tc from pt requesting to r/s appt for Pap Smear on 09/15/2022. Pt states only available day off is for an appt. Please contact pt at [phone] documented in this encounter Plan of Treatment Not on file documented as of this encounter Visit Diagnoses Not on filedocumented in this encounter Care Teams Regulatory Internship Relationship Specialty Start Date End Date Becky Mackenzie MD [address] [place] [phone] PCP - General Family Medicine 06/12/18 documented as of this encounter
[2024-10-17 13:42] LABS: Alanine Aminotransferase 22 U/L (0-31); Alkaline Phosphatase 53 U/L (39-117); Anion Gap 11 (12-20); Aspartate Amino Transferase 20 U/L (5-31); Bilirubin Total 0.3 mg/dL (0.0-1.0); Blood Urea Nitrogen 10 mg/dL (9-16); Carbon Dioxide 24 mmol/L (22-29); Chloride 109 mmol/L (96-108); Estimated Glomerular Filt Rate > 60; Glucose Random 87 mg/dL (60-115); Sodium 140 mmol/L (135-145); Total Protein 7.1 g/dL (6.5-8.0)
[2024-10-17 14:01] LABS: TSH reflex Free T4 2.84 uIU/mL (0.32-4.0)
[2024-10-23 23:27] LABS: Immunoglobulin A 246 mg/dL (47-310); Transglutaminase IgA <1.0 U/mL
== END 2024-10-17 12:11 | disposition home or self-care (01) ==
LOC: HO.HHCL 12:10
PROVIDERS: Visit Provider Family Medicine
DX: R19.7 Diarrhea, unspecified (principal); R00.2 Palpitations; R03.0 Elevated blood-pressure reading, without diagnosis of hypertension; E03.9 Hypothyroidism, unspecified
CPT/HCPCS: 36415; 80053; 82784; 84443; 85025; 86364

== ENCOUNTER → 2025-02-06 11:32 | Outpatient (REF) | payer MEDICAID, SELFPAY ==
--- NOTE | 2025-02-06 11:35 | HM_ITS ---
Conclusion: 1. Patient was monitored for total period of 23 hours 2. Baseline was normal sinus rhythm with average heart of 92 beats per minute 3. No significant pauses noted 4. Frequent sinus tachycardia noted 22.5% of time heart rate about 100 beats per minute 5. Patient marked the counter 1 time with reporting symptoms of palpitation 3 times in the diary correlating with sinus rhythm MTDD
--- OUTSIDE RECORDS SUMMARY | 2025-02-06 12:49 | XMS_ITS | Encounter Summary ---
Author Organization [employer] Address [address] [place] [address] 7 [place] [address] Care Team Providers Care Erosion Control Specialist Name Role Phone Becky Mackenzie MD Primary Care Provider [phone] Reason for Visit * Reason Comments Med Change Request Encounter Details Date Type Department Care Team ([facility] Contact Info) Description 06/28/2024 Refill [facility] [address] [place], [place] [phone] Annie Loco MD [address] [place] [address] Irritable bowel syndrome with both constipation and [...] as of this encounter Plan of Treatment Upcoming Encounters Date Type Department Care Team (Late st Contact Info) Description 05/16/2025 2:45 PM EST Office Visit [facility] [address] [place] [address] Cherelle Dinero MD [address] [place] [address] documented as of this encounter Visit Diagnoses Diagnosis Irritable bowel syndrome with both constipation and diarrhea documented in this encounter Care Teams Erosion Control Specialist Relationship Specialty Start Date End Date Becky Mackenzie MD [address] [place] [phone] PCP - General Family Medicine 06/12/18 documented as of this encounter
--- OUTSIDE RECORDS SUMMARY | 2025-02-06 12:49 | XMS_ITS | Encounter Summary ---
Author Organization [employer] Address [address] [facility] 7t [place] [address] Care Team Providers Care Ocular Care Technologist Name Role Phone Becky Mackenzie MD Primary Care Provider [phone] Encounter Details Date Type Department Care Team (Late st Contact Info) Description 01/24/2025 Orders Only [facility] MED[facility] 230 [place], [place] [phone] Becky Mackenzie MD 230 [place], [place] [phone] Moderate persistent asthma without complication Social History Tobacco Use Types Packs/Day Years Used Date Smoking Tobacco: Never Passive Smoke Exposure: Never Smokeless Tobacco: Never Depression Answer Date Recorded Patient Health Questionnaire-9 Score 14 01/23/2025 Patient Health Questionnaire-9 Score 14 01/23/2025 Last PHQ-9: Questionnaire Data Not on file 0 01/23/2025 Housing Stability Answer Date Recorded What is your housing situation today? I have ana m morejon 01/23/[address] you li ve. Do you have problems with any of the following? None of the above 01/23/2025 Food Insecurity Answer Date Recorded Within the past 12 months, y ou worried that your food would run out before you got money to buy more: Never True 10/18/2024 Within the past 12 months,th e food you bought just didn't last and you didn't have enough money to get more: Never True 02/2025 Transportation Answer Date Recorded In the past 12 months, has l ack of transportation kept you from medical appts, meetings, work or from getting things needed for daily living? No 10/18/2024 Utilities Answer Date Recorded In the past 12 months, has t he electric, gas, oil or water company threatened to shut off services in your home? No 01/23/2025 Depression Answer Date Recorded Patient Health Questionnaire-2 Score 2 01/23/2025 Internet Access Answer Date Recorded Internet Access Q1 Yes 10/18/2024 Internet Access Q2 Not on file 10/18/2024 Comments Unknown Sex and Gender Information Value [...] Description 05/16/2025 2:45 PM EST Office Visit [facility]INE [address] [place] [phone] Cherelle Dinero MD [address] [place] [phone] documented as of this encounter Visit Diagnoses Diagnosis Moderate persistent asthma without complication documented in this encounter Additional Health Concerns Assessment Noted Time PHQ-9 Depression Total Score: 14 025 11:07 AM EDT documented as of this encounter Care Teams Ocular Care Technologist Relationship Specialty Start Date End Date Becky Mackenzie MD [address] [place] [id number] PCP - General Family Medicine 06/12/18 documented as of this encounter
--- OUTSIDE RECORDS SUMMARY | 2025-02-06 12:49 | XMS_ITS | Encounter Summary ---
Author Organization [employer] Address [address] [facility] 7 [place] [address] Care Team Providers Care Commercial Real Estate Agent Name Role Phone Becky Mackenzie MD Primary Care Provider [phone] Reason for Visit * Reason Onset Date Comments Med Refill 01/13/2025 Encounter Details Date Type Department Care Team ([facility] st Contact Info) Description 01/13/2025 Telephone [facility] 230 [place], [place] [phone] Becky Mackenzie MD 230 [place], [place] [phone] Med Refill Social History Tobacco Use Types Packs/Day Years Used Date Smoking Tobacco: Never Passive Smoke Exposure: Never Smokeless Tobacco: Never Housing Stability Answer Date Recorded What is your housing situation today? I have ana m morejon 10/18/[address] you li ve. Do you have problems with any of the following? Not on file 10/18/2024 Food Insecurity Answer Date Recorded Within the [...] Recorded Patient Health Questionnaire-2 Score 2 06/09/2022 Internet Access Answer Date Recorded Internet Access [...] encounter Miscellaneous Notes * Telephone Encounter - Becky Mackenzie MD - 01/24/2025 5:33 PM EDT Script sent * Telephone Encounter - Angeline Smith RN - 01/24/2025 5:16 PM EDT Called pt. She states that her Ventolin inhaler is and is requesting a refill to have on hand. Pt. Aware that PCP not in office and will get to it next week. * Telephone Encounter - Becky Mackenzie MD - 01/24/2025 4:38 PM EDT Prescribed Breo * Telephone Encounter - Angeline Smith RN - 01/24/2025 10:29 AM EDT Pt. Incoming patient portal message: Last night I took the symbicort and this morning I can't stop coughing up phlegm and my throat hurts. I haven't been able to stop clearing my throat. I mouth washed and brush my teeth after taking ittoo. Should I discontinue use? My symptoms feel worse. I keep wheezing from the phlegm. I'm not sure if this is temporary. And if I should stop using symbicort can I be prescribed the breo and albuterol rescue inhaler instead please? Called pt. Pt. States that she realizes it is possible that the Symbicort is bringing up a lot of phlegm and causing her to cough a lot. Pt. States that she had some wheezing but she used her Albuteral rescue inhaler and wheezing went away. Pt. States that she was seen yesterday 01/23/25 for a PE and PCP wanted to try Symbicort. Pt. States that she was on Breo inhaler and prefers that better. Pt. States the Symbicort also causes her to have a sore throat and also the Symbicort gave her a weird sensation in her chest last night whn she took it. Pt. Is apprehensive about taking the Symbicort. Pt. Would prefer to go back on Breo and continue her Albuterol inhaler as needed. Pt states I barelyhad to use my Albuterol inhaler when I was on Breo and yesterday, I wasn't having any trouble breathing but, the Doctor wanted to try the Symbicort in replacement of Breo to see how it would work andtold me to call her back if I did not like the effects of the Symbicort. Please advise and call pt. Back with decision. Pt. Also states that her Albuterol inhaler is so she will need a refill on that for futureuse . documented in this encounter Plan of Treatment Upcoming Encounters Date Type Department Care Team (Late st Contact Info) Description 05/16/2025 2:45 PM EST Office Visit [facility]INE [address] [place] [address] Cherelle Dinero MD 230 [place] [address] documented as of this encounter Visit Diagnoses Diagnosis Moderate persistent asthma without complication documented in this encounter Care Teams Commercial Real Estate Agent Relationship Specialty Start Date End Date Becky Mackenzie MD [address] [place] [address] PCP - General Family Medicine 06/12/18 documented as of this encounter
--- OUTSIDE RECORDS SUMMARY | 2025-02-06 12:49 | XMS_ITS | Encounter Summary ---
Author Organization [employer] Address [address] [facility] 7 [place] [address] Care Team Providers Care Skiver Heel Tap Name Role Phone Becky Mackenzie MD Primary Care Provider [phone] Encounter Details Date Type Department Care Team (Late st Contact Info) Description 06/09/2022 Abstract [facility] MEDICINE 230 [place], [place] [phone] Becky Mackenzie MD 230 [place], [place] [phone] Social History Tobacco Use Types Packs/Day Years [...] AM EST documented as of this encounter Functional Status * Over the past 2 weeks, how often have you been bothered by any of the following problems? Question Answer Date of Assessment Author Patient Health Questionnaire -2 Score 2 06/09/2022 9:15 AM EST Pau Serrano [place] * Over the past 2 weeks, how often have you been bothered by any of the following problems? Question Answer Date of Assessment Author Little interest or pleasure in doing things Several days 06/09/2022 9:15 AM Pau Candelario [place] Feeling down, depressed, or hopeless Several days 06/09/2022 9:15 AM Pau Candelario [place] Trouble falling or staying asleep, or sleeping too much Several days 06/09/2022 9:15 AM Steff Candelario [place] Feeling tired or having little energy Several days 06/09/2022 9:15 AM Pau Candelario [place] Poor appetite or overeating Not at all 06/09/2022 9: 15 AM Steff Candelario [place] Feeling bad about yourself - or that you are a failure or have let yourself or your family down Not at all 06/09/2022 9:15 AM Pau Candelario [place] Trouble concentrating on things, such as reading the newspaper or watching television Not at all 06/09/2022 9:15 AM Pau Candelario [place] Thoughts that you would be better off or hurting yourself in some way Not at all 06/09/2022 9:15 AM Sandra Candelario MA documented as of this encounter Plan of Treatment Upcoming Encounters Date Type Department Care Team (Late st Contact Info) Description 05/16/2025 2:45 PM EST Office Visit [facility] [address] [place] [address] Cherelle Dinero MD [address] [place] [address] documented as of this encounter Visit Diagnoses Not on filedocumented in this encounter Care Teams Skiver Heel Tap Relationship Specialty Start Date End Date Becky Mackenzie MD [address] [place] [address] PCP - General Family Medicine 06/12/18 documented as of this encounter
--- OUTSIDE RECORDS SUMMARY | 2025-02-06 12:49 | XMS_ITS | Encounter Summary ---
Author Organization [employer] Address [address] [facility] 7t [place] [address] Care Team Providers Care Ferryboat Operator Name Role Phone Becky Mackenzie MD Primary Care Provider [phone] Encounter Details Date Type Department Care Team (Late st Contact Info) Description 01/24/2025 Orders Only [facility] MEDICINE 230 [place], [place] [phone] Becky Mackenzie MD 230 [place], [place] [phone] Social History Tobacco Use Types Packs/Day Years [...] Description 05/16/2025 2:45 PM EST Office Visit [facility] [address] [place] [address] Cherelle Dinero MD 230 [place] [address] documented as of this encounter Visit Diagnoses Not on filedocumented in this encounter Additional Health Concerns Assessment Noted Time PHQ-9 Depression Total Score: 14 025 11:07 AM EDT documented as of this encounter Care Teams Ferryboat Operator Relationship Specialty Start Date End Date Becky Mackenzie MD [address] [place] [address] PCP - General Family Medicine 06/12/18 documented as of this encounter
--- OUTSIDE RECORDS SUMMARY | 2025-02-06 12:49 | XMS_ITS | Encounter Summary ---
Author Organization [employer] Address [address] [place] [address] 7 [place] [address] Care Team Providers Care Nuclear Physicist Name Role Phone Becky Mackenzie MD Primary Care Provider [phone] Reason for Visit * Reason Onset Date Comments Appointment Request 09/14/2022 Encounter Details Date Type Department Care Team ([facility] st Contact Info) Description 09/14/2022 Telephone [facility] MEDICINE 230 [place], [place] [phone] Becky Mackenzie MD 230 [place], [place] [phone] Appointment Request Social History Tobacco Use Types [...] for an appt. Please contact pt at [phone] documented in this encounter Plan of Treatment Upcoming Encounters Date Type Department Care Team (Late st Contact Info) Description 05/16/2025 2:45 PM EST Office Visit [facility] MEDICINE [address] [place] [address] Cherelle Dinero MD [address] [place] [address] documented as of this encounter Visit Diagnoses Not on filedocumented in this encounter Care Teams Nuclear Physicist Relationship Specialty Start Date End Date Becky Mackenzie MD [address] [place], [place] [phone] PCP - General Family Medicine 06/12/18 documented as of this encounter
--- OUTSIDE RECORDS SUMMARY | 2025-02-06 12:49 | XMS_ITS | Clinical Summary ---
Author Organization [employer] Address [address] [place] [address] [address] [place] [address] Care Team Providers Care Lining Ironer Name Role Phone Becky Mackenzie MD Primary Care Provider [phone] Allergies Active Allergy Reactions Criticality Noted Date Comments Budesonide-Formoterol Fumarate Cough 01/24 Medications clotrimazole (Mycelex) 10 MG félix TAKE 1 TABLET BY ORAL ROUTE 5 TIMES EVERY DAY DISSOLVED SLOWLY IN THE MOUTH FOR 7-14 DAYS Active triamcinolone (Nasacort) 55 MCG/ACT nasal inhaler USE 1-2 SPRAYS IN EACH NOSTRIL DAILY Active montelukast (Singulair) 10 MG tabletIndicatio ns:Allergic rhinitis, unspecified seasonality, unspecified trigger TAKE 1 TABLET BY MOUTH EVERY DAY IN THE EVENING 90 tablet 3 Active clobetasol (Temovate) 0.05 % ointment Apply to affected area once or twice daily. Apply immediately after shower. Dry the area with towel gently before application. 60 g 1 Active omeprazole (PriLOSEC) [address] capsule Take 1 capsule (20 mg) by mouth before breakfast. Do not crush or chew. 90 capsule 3 025 2025 Active levothyroxine (Synthroid, Levoxyl) 50 MCG tablet TAKE 1 TABLET BY MOUTH EVERY DAY 90 tablet 3 025 Active loratadine (Claritin) 10 MG tabletIndicatio ns:Allergic rhinitis, unspecified seasonality, unspecified trigger Take 1 tablet (10 mg) by mouth Once per day. 90 tablet 1 025 Active Fluticasone Furoate-Vilante rol (Breo Ellipta) 100-25 MCG/ACT aerosol powderIndicatio ns:Moderate persistent asthma without complication Inhale 1 puff Once per day. 60 each 5 025 Active Ventolin HFA 108 (90 Base) MCG/ACT inhalerIndicati ons:Moderate persistent asthma without complication Inhale 2 puffs every 4 (four) hours if needed for wheezing. TAKE 2 PUFFS BY MOUTH EVERY 4 TO 6 HOURS NEEDED 18 g 1 025 Active dicyclomine (Bentyl) 20 MG tabletIndicatio ns:Irritable bowel syndrome with both constipation and diarrhea TAKE 1 TABLET (20 MG) BY MOUTH IN THE MORNING, AT NOON AND AT BEDTIME 270 tablet 025 Active Ventolin HFA 108 (90 Base) MCG/ACT inhaler TAKE 2 PUFFS BY MOUTH EVERY 4 TO 6 HOURS NEEDED 022 2024 Discontinued(M ed list cleanup (will not trigger notification to Pharmacy)) albuterol (2.5 MG/3ML) 0.083% nebulizer solution inhale 3 milliliter by nebulization route every 4 hours as needed for asthma symptoms, do not exceed > 4 treatments per day 020 2024 Discontinued(M ed list cleanup (will not trigger notification to Pharmacy)) loratadine (Claritin) 10 MG tabletIndicatio ns:Allergic rhinitis, unspecified seasonality, unspecified trigger Take 1 tablet (10 mg) by mouth in the morning. 90 tablet 1 023 2024 Discontinued(R eorder (will not trigger notification to Pharmacy)) famotidine (Pepcid) 20 MG tabletIndicatio ns:Upper abdominal pain Take 1 tablet (20 mg) by mouth 2 times daily. 30 tablet 024 2024 Discontinued(M ed list cleanup (will not trigger notification to Pharmacy)) dicyclomine (Bentyl) 20 MG tabletIndicatio ns:Irritable bowel syndrome with both constipation and diarrhea TAKE 1 TABLET (20 MG) BY MOUTH IN THE MORNING, AT NOON AND AT BEDTIME 270 tablet 025 2024 Discontinued Breo Ellipta 100-25 MCG/ACT aerosol powderIndicatio ns:Moderate persistent asthma without complication INHALE 1 PUFF BY INHALATION ROUTE EVERY DAY AT THE SAME TIME EACH DAY 60 each 6 025 2024 Discontinued(M ed list cleanup (will not trigger notification to Pharmacy)) budesonide-form oterol (Symbicort) 80-4.5 MCG/ACT inhaler May use 1-2 puff every 4 hours as needed for difficulty breathing. Maximum 12 puffs per day. Rinse mouth with water after use. 1 each 11 025 2024 Discontinued(A lternate therapy) Ventolin HFA 108 (90 Base) MCG/ACT inhaler Inhale 2 puffs every 4 (four) hours if needed for wheezing. TAKE 2 PUFFS BY MOUTH EVERY 4 TO 6 HOURS NEEDED 18 g 1 025 2024 Discontinued(R eorder (will not trigger notification to Pharmacy)) Active Problems Problem Noted Date Diagnosed Date Atopic dermatitis 01/25/2025 Assessment & Plan (01/27/2025 5:45 PM EDT): - Patient has atopic triad - Improved with clobetasol - avoid scratching - use hypoallergenic and unscented skin care / laundry / cleaning product - liberal moisturization with emollient (such as Vaseline) - judicious use of topical steroid Rash 10/20/2024 Assessment & Plan (01/25/2025 6:17 AM EDT): - atopic dermatitis or psoriasis - Continue judicious use of clobetasol topical - Referred to Derm clinic Assessment & Plan (10/20/2024 5:55 PM EDT): - atopic dermatitis or psoriasis - start clobetasol topical - refer to Derm clinic Left breast lump 10/20/2024 Assessment & Plan (01/25/2025 6:07 AM EDT): - mobile, minimally tender small nodules, and female breast. No suspicious palpable mass. - Encouraged to continue performing monthly self breast exam. Discussed about the characteristic of concerning mass. Discussed pros and cons of doing imaging study - No family history of gynecological cancer - Monitor Assessment & Plan (10/20/2024 5:57 PM EDT): - recheck at next visit Palpitation 10/20/2024 Assessment & Plan (01/25/2025 5:59 AM EDT): - 10/20/2024 EKG rate 90, normal sinus rhythm, normal intervals, no acute ischemic ST-T changes, no hypertrophy. - evaluate with Holter monitor - normal TSH - possibly due to anxiety Assessment & Plan (10/20/2024 6:00 PM EDT): - EKG rate 90, normal sinus rhythm, normal intervals, no acute ischemic ST-T changes, no hypertrophy. - evaluate with Holter monitor - check TSH Diarrhea 12/06/2023 Assessment & Plan (10/20/2024 5:54 PM EDT): - negative celiac disease and H. Pylori - continue dicyclomine - refer back to GI Assessment & Plan (12/06/2023 4:09 PM EDT): Drink plenty of fluids Patient will be contacted with results Upper abdominal pain 12/06/2023 Assessment & Plan (01/25/2025 6:03 AM EDT): - possible GERD, IBS - Continue omeprazole - Referred to GI; upcoming appointment Assessment & Plan (10/20/2024 5:52 PM EDT): - possible GERD, IBS - restart omeprazole - refer back to GI Assessment & Plan (12/06/2023 4:10 PM EDT): Patient will be contacted with results I advise patient to avoid NSAIDs, spicy and acid food, I advise to eat at the same time every day, I advise to elevate the head of the bed and take medications as prescribe Sleep disturbance 10/27/2022 Assessment & Plan (01/25/2025 6:18 AM EDT): - Patient was following with Sleep Medicine Clinic Provider and was supposed to have sleep study; patient has difficulty going to their office because it was in [place] [facility] Assessment & Plan (10/27/2022 1:14 PM EDT): Pt has been following with Sleep Medicine Clinic Provider -Needs to complete home-sleep study Elevated blood-pressure read ing, without diagnosis of hypertension 10/27/2022 Assessment & Plan (01/25/2025 6:00 AM EDT): -Goal BP < 130/80 per ACC/AHA guideline -Family Hx hypertension -Normal today -Continue working on lifestyle modifications -Recommended self-monitoring BP (mother has HTN and has BP monitor) Assessment & Plan (10/20/2024 5:52 PM EDT): -Elevated today, likely due to anxiety -Goal BP < 140/90 per JNC-8 and < 130/80 per ACC/AHA guideline -Family Hx HTN -Continue working on lifestyle modifications -Recommended self-monitoring BP (mother has HTN and has BP monitor) -Follow up in 3-6 mo, sooner if any problem arisesAdvised to check BP at home Assessment & Plan (10/31/2022 8:50 AM EDT): -Elevated today, likely due to anxiety -Goal BP < 140/90 per JNC-8 and < 130/80 per ACC/AHA guideline -Family Hx HTN -Continue working on lifestyle modifications -Recommended self-monitoring BP (mother has HTN and has BP monitor) -Follow up in 3-6 mo, sooner if any problem arisesAdvised to check BP at home Irritable bowel syndrome (IBS) 06/09/2022 Assessment & Plan (01/25/2025 6:04 AM EDT): -Negative celiac disease, H. pylori stool antigen -Continue dicyclomine once daily as needed - Low FODMAP diet - Upcoming appointment with GI Assessment & Plan (10/20/2024 5:53 PM EDT): -Negative celiac disease, H. pylori -Continue dicyclomine -Refer back to GI Assessment & Plan (06/09/2022 5:04 AM EST): -Evaluated by GI -Negative celiac disease, H. pylori -Continue dicyclomine Obesity 06/09/2022 Assessment & Plan (01/25/2025 6:01 AM EDT): - Continue working on lifestyle modifications. - Generic advice as below. Tailor for your unique body, character, and specific condition. Dietary Recommendations: Fruits, vegetables, whole grains, protein foods, and fat-free or low-fat dairy products are healthy choices. Eat different types of protein foods in your diet. This can include seafood, lean meats, poultry, beans, peas, lentils, nuts, seeds, soy products, and eggs. Limit foods and beverages higher in added sugars, saturated fat, and sodium. Exercise Recommendations: At least 150 minutes of moderate-intensity physical activity per week, or an equivalent combination of moderate- and vigorous-intensity activity History of gonorrhea 04/09/2018 Assessment & Plan (01/25/2025 6:07 AM EDT): -Negative chlamydia -Treated Assessment & Plan (06/09/2022 5:05 AM EST): -Negative chlamydia -Treated Hemorrhoids 02/20/2017 Assessment & Plan (06/12/2022 4:30 PM EST): -avoid prolonged pressure (sitting, lying) -prevent constipation -sitz bath -apply hydrocortisone cream prn Hypothyroidism 02/20/2017 Assessment & Plan (01/25/2025 6:02 AM EDT): -Current replacement levothyroxine 50 mcg daily -Last TSH 2.84 on 10/17/2024 -Continue current replacement and check TSH at least annually Assessment & Plan (10/20/2024 5:54 PM EDT): -Current replacement levothyroxine 50 mcg daily -Last TSH 3.19 on 06/09/22 -Continue current replacement and check TSH at least annually Assessment & Plan (10/31/2022 8:51 AM EDT): -Current replacement levothyroxine 50 mcg daily -Last TSH 2.0 on 03/09/22 -Continue current replacement and check TSH at least annually Assessment & Plan (06/09/2022 5:01 AM EST): -Current replacement levothyroxine 50 mcg daily -Last TSH 2.0 on 03/09/22 -Continue current replacement and check TSH at least annually Asthma 03/30/2015 Assessment & Plan (01/25/2025 6:16 AM EDT): -Previously followed by Allergy / employee communications specialist - Previously on Breo; will try SMART with Symbicort per SIVA guideline - Continue montelukast - Previously on albuterol neb and inhaler prn; will try SMART with Symbicort -Continue appropriate mouth care after inhaler use to prevent oral candidiasis -Addendum patient was unable to tolerate the Symbicort. Therefore, will prescribe Breo and albuterol again since patient reported more cough with SMART on 01/24/2025 Assessment & Plan (10/20/2024 5:52 PM EDT): -Previously followed by Allergy / employee communications specialist -Continue Breo -Continue montelukast -Continue albuterol neb and inhaler prn -Continue appropriate mouth care after inhaler use to prevent oral candidiasis Assessment & Plan (10/31/2022 8:51 AM EDT): -Followed by Allergy / employee communications specialist -Continue Breo -Continue montelukast -Continue albuterol neb and inhaler prn -Continue appropriate mouth care after inhaler use to prevent oral candidiasis Assessment & Plan (06/12/2022 4:31 PM EST): -Followed by Allergy / employee communications specialist -Continue Breo -Continue montelukast -Continue albuterol neb and inhaler prn -Continue appropriate mouth care after inhaler use to prevent oral candidiasis Allergic rhinitis 05/22/2012 Assessment & Plan (01/25/2025 6:01 AM EDT): - Previously followed by allergy / employee communications specialist -Continue loratadine 10 mg daily -Continue montelukast 10 mg at bedtime -Continue triamcinolone nasal Assessment & Plan (10/20/2024 5:54 PM EDT): -Followed by allergy / employee communications specialist -Continue loratadine 10 mg daily -Continue montelukast 10 mg at bedtime -Continue triamcinolone nasal Assessment & Plan (10/31/2022 8:51 AM EDT): -Followed by allergy / employee communications specialist -Continue loratadine 10 mg daily -Continue montelukast 10 mg at bedtime -Continue triamcinolone nasal Assessment & Plan (06/09/2022 5:02 AM EST): -Followed by allergy / employee communications specialist -Continue loratadine 10 mg daily -Continue montelukast 10 mg at bedtime -Continue triamcinolone nasal Anxiety and depression 05/22/2012 Assessment & Plan (01/25/2025 6:11 AM EDT): -PHQ-9 score 14; ZECHARIAH-7 score 16 - Patient declines [facility] referral - Patient states she has family and friend whom she can talk with and was able to contract her safety - Patient states her symptoms worsened since COVID due to significant weight gain Resolved Problems Problem Noted Date Diagnosed Date Resolved Date Encounter for well woman dennis schulte with routine gynecological exam 10/27/2022 01/25/2025 Assessment & Plan (10/31/2022 8:48 AM EDT): Pap Smear completed today STI screening IPV screen negative Oral candidiasis 06/12/2022 10/20/2024 Assessment & Plan (06/12/2022 4:31 PM EST): -Recurrent -Likely due to ICS use -Continue proper mouth care -Screen for DM -Evaluate for ADELSO Encounters Date Type Department Care Team Description 02/06/2025 Refill [facility] [address] [place] [address] Becky Mackenzie MD Irritable bowel syndrome with both constipation and diarrhea 01/25/2025 [facility] [place] [phone] Becky Mackenzie MD Moderate persistent asthma without complication 01/24/2025 Orders Only [address] [place] [address] Becky Mackenzie MD 01/24/2025 Orders Only [address] [address] Becky Mackenzie MD Moderate persistent asthma without complication 01/23/2025 10:30 AM EDT Office Visit [facility] [place] [phone] Becky Mackenzie MD Routine general medical examination at a health care facility (Primary Dx); Palpitation; Sleep disturbance; Elevated blood-pressure reading, without diagnosis of hypertension; Allergic rhinitis, unspecified seasonality, unspecified trigger; Class 3 severe obesity due to excess calories with body mass index (BMI) of 45.0 to 49.9 in adult, unspecified whether serious comorbidity present; Acquired hypothyroidism; Other irritable bowel syndrome; Upper abdominal pain; Mass of left breast, unspecified quadrant; History of gonorrhea; Anxiety and depression; Moderate persistent asthma without complication; Rash; Atopic dermatitis, unspecified type 01/23/2025 Travel 01/22/2025 Travel 01/22/2025 Telephone [place] [address] Becky Mackenzie MD chart prep 01/16/2025 Patient Outreach [address] [address] Becky Mackenzie MD Pre-visit Planning ((Unable to reach for PVP screening, LVM) to be completed in office ) 01/13/[address] [address] Becky Mackenzie MD Med Refill 01/11/[address] [address] Becky Mackenzie MD Allergic rhinitis, unspecified seasonality, unspecified trigger 01/11/2025 Refill [facility] [address] [place], [place] [phone] Becky Mackenzie MD Moderate persistent asthma without complication 01/06/2025 Refill [facility] [address] [place], [place] [phone] Becky Mackenzie MD Moderate persistent asthma without complication 11/26/2024 Telephone [facility] [address] [place], [place] [phone] Becky Mackenzie MD January recall from Last 3 Months Immunizations Immunization Administration Dates Next Due DTaP 01/22/1998, 7,1996,08/12 HPV, Bivalent 05/22/2012 HPV, Quadrivalent 05/27/2013,08/29/2008 Hep A, Adult 10/17/2024 Hep A, ped/adol, 2 dose 05/27/2013 Hep B, Adolescent or Pediatric 02/13/1997,1996,1996 Hib (HbO) 09/11/1997, 7,1996,08/12 Influenza injectable quadriv alent IIV4 with preservative 03/29/2018,03/31/2015 Influenza injectable quadriv alent preservative free 06/09/2022,07/20/2016 Influenza, IIV3, injectable 03/16/2009 Influenza, Split (incl. michael fied surface antigen) 05/27/2013,05/22/2012 Influenza, seasonal, injecta ble, preservative free 07/11/2024 MMR 08/29/2008,1996 Meningococcal MCV4P ACYW-135 05/22/2012,08/30/19 09 Moderna Covid-19 Vaccine 12+ 06/24/2021,10/08/19 21,09/09/2020 Moderna Covid-19 Vaccine 6+ Bivalent 06/09/2022 OPV, Trivalent 02/13/1997,1996,1996 Pneumococcal Conjugate PCV 20 10/17/2024 TD (adult), 2 Lf tetanus tox oid, preservative free, adsorbed 09/18/2018 Tdap 08/29/2008 Social History Tobacco Use Types Packs/Day Years Used Date Smoking Tobacco: Never Passive Smoke Exposure: Never Smokeless Tobacco: Never Tobacco Cessation:Counseling Given: Not Answered Depression Answer Date Recorded Patient Health Questionnaire-9 [...] Q2 Not on file 10/18/2024 Comments Unknown Intention Date Recorded Not sure of desire to become (f inding) 01/23/2025 Sex and Gender Information Value Date Recorded Sex Assigned at Female 06/16/2022 10:07 PM EST Legal Sex Female 8:34 PM EDT Gender Identity Female 06/16/2022 10:07 PM EST Sexual Orientation Straight 06/16/2022 10 :07 PM EST Last Filed Vital Signs Vital Sign Reading Time Taken Comments Blood Pressure 100/80 01/23/2025 11:06 AM EDT Pulse 85 01/23/2025 11:06 AM EDT Temperature 36.1 C (96.9 F) 01/23/2025 11:06 AM EDT Respiratory Rate 15 01/23/2025 11:06 AM EDT Oxygen Saturation 100% 01/23/2025 11:06 AM EDT Inhaled Oxygen Concentration - - Weight 103 kg (226 lb) 01/23/2025 11:06 AM EDT Height 149.9 cm (4' 11 ) 01/23/2025 11:06 AM EDT Body Mass Index 45.65 01/23/2025 11:06 AM EDT Plan of Treatment Upcoming Encounters Date Type Department Care Team (Late st Contact Info) Description 05/16/2025 2:45 PM EST Office Visit [facility] [address] [place] [address] Cherelle Dinero MD [address] [place], [place] [phone] Health Maintenance Due Date Last Done Comments Influenza Vaccine (#1) 2025 , 06/09/2022, 03/29/2018, Additional history exists Depression Monitoring 07/26/2025 01/23/2025, 025 Alcohol/Substance Use Screening 10/18/2025 10/18/2024 Pap Smear 10/27/2025 10/27/2022 Disability Screening 01/22/2026 01/22/2025 SDOH Screening 01/23/2026 01/23/2025 Tobacco Screening 01/23/2026 01/23/2025 Family Planning (PISQ) 01/25/2026 01/25/2025 Lipid Panel 06/09/2027 06/09/2022 DTaP/Tdap/Td Vaccines (7 [...] 05/27/2013, 05/12, 08/29/2008 HIV Screening Completed 10/27/2022, 09/0 12/2020, 03/12/2020 Hepatitis C Screening Completed 10/27/2022 , 02/16/2021, 03/12/2020 COVID-19 Vaccine Completed 07/11/2024, , 06/24/2021, Additional history exists Hepatitis A Vaccines Completed 10/17/2024, 05/27/20 13 Pneumococcal Vaccine: Pediatrics (0 to 5 Years) and At-Risk Patients (6 to 49) Years Completed 10/17/2024 Meningococcal B Vaccine Aged Out No l onger eligible based on patient's age to complete this topic RSV under 20 months Aged Out No longe r eligible based on patient's age to complete this topic Rotavirus Vaccines Aged Out No longer eligible based on patient's age to complete this topic Procedures Procedure Name Priority Date/Time Associated Diagnosis Comments IMAGE-GUIDED PAP W/AGE BASED SCR PROTOCOLS Routine [...] Recently Relevant to Health Maintenance Results * Image-Guided Pap with Age-Based Screening Protocols (10/27/2022 10:45 AM EDT) Comment [employer] [facility] Comment: This order for age-based cervical cancer and STI screening follows ACOG guidelines(PB 168, 140, KWA847). See individual assays for performing site location. Clinical Information: None given [facility] LMP: NONE GIVEN [facility] Prev. PAP: NONE GIVEN [facility] Prev. BX: NONE GIVEN [facility] SOURCE: None given [facility] Statement Of Adequacy: [facility] Comment: Satisfactory for evaluation. Endocervical/transformation zone component present. Interpretation /Result: Negative for intraepithelial lesion or malignancy. [facility] COMMENT: This Pap test has been evaluated with computer assisted technology. [facility] Cytotechnologi st: [facility] Comment: WXW, CT(ASCP) CT Screening Location: [address] [address] (Always Message) [facility] Comment: EXPLANATORY NOTE: The Pap is a [...] 5 AM EDT 10/28/2022 12:02 PM EDT us Becky Mackenzie MD LAB BLOOD ORDERABLES Final Resul t [address], [place] [address] [facility] [address] [place] [phone] * Hepatitis C Antibody with Reflex to HCV, RNA, Quantitative, Real-Time PCR (10/27/2022 10:43 AM EDT) Hepatitis C Antibody NON-REACT ANABELL NON-REACT ANABELL [facility] [place] [facility] Index 0.49 <1.00 [facility] Comment: HCV antibody was non-reactive. There is no laboratory evidence of HCV infection. In most cases, no further action is required. However, if recent HCV exposure is suspected, a test for HCV RNA (test code 79646) is suggested. For additional information please refer to http://SkuRun.Hastify/faq/QGG50x5 (This link is being provided for informational/ educational purposes only.) Blood Venous blood specimen / Unknown 10/27/2022 10:43 AM EDT 10/27/2022 10:44 AM EDT Narrative [facility] - 10/31/2022 12:57 PM EDT FASTING:NO FASTING: NO Becky Mackenzie MD LAB BLOOD ORDERABLES Final Resul t [email or web address] [address], [place] [address] [facility] [place] [facility] [address] [place] [address] * HIV-1/2 Antigen and Antibodies, Fourth Generation, with Reflexes (10/27/2022 10:43 AM EDT) [facility] HIV Antigen/Antibody, 4th Generation NON-REAC TIVE NON-REAC TIVE [facility] Comment: HIV-1 antigen and HIV-1/HIV-2 antibodies were not detected. There is no laboratory evidence of HIV infection. PLEASE NOTE: This information has been disclosed to you from records whose confidentiality may be protected by state law. If your state requires such protection, then the state law prohibits you from making any further disclosure of the information without the specific written consent of the person to whom it pertains, or as otherwise permitted by law. A general authorization for the release of medical or other information is NOT sufficient for this purpose. For additional information please refer to http://SkuRun.Hastify/faq/HMU678 (This link is being provided for informational/ educational purposes only.) The performance of this assay has not been clinically validated in patients less than 2 years old. Blood Venous blood specimen / Unknown 10/27/2022 10:43 AM EDT 10/27/2022 10:44 AM EDT Narrative [facility] - 10/31/2022 12:57 PM EDT FASTING:NO FASTING: NO us Becky Mackenzie MD LAB BLOOD ORDERABLES Final Resul t Performing Organization Address [facility]/ZIP Co de Phone Number JACQUELIN Chang [address], [facility] [place] [address] [facility] [place] [facility] [address] [place] [address] * (ABNORMAL) Lipid Panel, Standard (06/09/2022 9:55 AM EST) Cholesterol, Total 138 <200 mg/dL [facility] HDL Cholesterol 47(L) > OR = 50 mg/dL [facility] Triglycerides 86 <150 mg/dL [facility] LDL Cholesterol 74 mg/dL (calc) [facility] Comment: Reference range: <100 Desirable range <100 mg/dL for primary prevention; <70 mg/dL for patients with CHD or diabetic patients with > or = 2 CHD risk factors. LDL-C is now calculated using the Valentino-Aditya calculation, which is a validated novel method providing better accuracy than the Friedewald equation in the estimation of LDL-C. Valentino SS et al. IBIS. 2013;310(19): 7531-5900 (http://education.[employer]/faq/KSQ174) Chol/HDLC Ratio 2.9 <5.0 (calc) [facility] Non-HDL Cholesterol 91 <130 mg/dL (calc) [facility] Comment: For patients with diabetes plus 1 major ASCVD risk factor, treating to a non-HDL-C goal of <100 mg/dL (LDL-C of <70 mg/dL) is considered a therapeutic option. Blood Venous blood specimen / Unknown 06/09/2022 9:55 AM EST 06/09/2022 9:56 AM EST Narrative [facility] - 06/09/2022 9:44 PM EST FASTING:NO FASTING: NO Becky Mackenzie MD LAB BLOOD ORDERABLES Final Resul t Performing Organization Address City/[facility]/ZIP Co de Phone Number [facility] Charlene [address], [place] [address] [employer] [address], ([address]) [place] [address] from Last 3 Months or Most Recently Relevant to Health Maintenance Insurance [facility] C3 Care Teams Lining Ironer Relationship Specialty Start Date End Date Becky Mackenzie MD [address] [place] [phone] PCP - General Family Medicine 06/12/18
--- OUTSIDE RECORDS SUMMARY | 2025-02-06 12:49 | XMS_ITS | Encounter Summary ---
Author Organization [employer] [facility] Address [address] [place] [address] 7 [place] [address] Care Team Providers Care Propeller Inspector Name Role Phone Becky Mackenzie MD Primary Care Provider [phone] Encounter Details Date Type Department Care Team (Late st Contact Info) Description 08/05/2022 Orders Only [facility] [address] [place] [address] [phone] Becky Mackenzie MD [address] [place] [address] [phone] Vision problem (Primary Dx) Social History Tobacco [...] Description 05/16/2025 2:45 PM EST Office Visit [facility] [address] [place] [address] [phone] Cherelle Dinero MD [address] [place] [address] [phone] documented as of this encounter Visit Diagnoses Diagnosis Vision problem- Primary Problems with sight documented in this encounter Care Teams Propeller Inspector Relationship Specialty Start Date End Date Becky Mackenzie MD [address] [place] [address] PCP - General Family Medicine 06/12/18 documented as of this encounter
--- OUTSIDE RECORDS SUMMARY | 2025-02-06 12:49 | XMS_ITS | Encounter Summary ---
Author Organization [employer] Address 75 [facility] 7t [place] [address] Care Team Providers Care Rescue Instructor Name Role Phone Becky Mackenzie MD Primary Care Provider [phone] Encounter Details Date Type Department Care Team ([facility] st Contact Info) Description 09/12/2024 Abstract [facility] [address] [place], [place] [phone] Becky Mackenzie MD [address] [place], [place] [phone] Social History Tobacco Use Types Packs/Day Years [...] Description 05/16/2025 2:45 PM EST Office Visit [facility] [address] [place] [address] Cherelle Dinero MD [address] [place] [address] documented as of this encounter Visit Diagnoses Not on filedocumented in this encounter Care Teams Rescue Instructor Relationship Specialty Start Date End Date Becky Mackenzie MD [address] [place], [place] [phone] PCP - General Family Medicine 06/12/18 documented as of this encounter
--- OUTSIDE RECORDS SUMMARY | 2025-02-06 12:49 | XMS_ITS | Encounter Summary ---
Author Organization [employer] Address 75 [facility] 7t [place] [address] Care Team Providers Care Medical Library Assistant Name Role Phone Becky Mackenzie MD Primary Care Provider [phone] Reason for Visit * Reason Comments Med Refill Encounter Details Date Type Department Care Team ([facility] st Contact Info) Description 02/06/2025 Refill [facility] [address] [place], [place] [phone] Becky Mackenzie MD [address] [place] [address] Irritable bowel syndrome with both constipation and [...] Office Visit [facility] [address] [place] [address] Cherelle Dinero MD [address] [place] [address] documented as of this encounter Visit Diagnoses Diagnosis Irritable bowel syndrome with both constipation and diarrhea documented in this encounter Additional Health Concerns Assessment Noted Time PHQ-9 Depression Total Score: 14 025 11:07 AM EDT documented as of this encounter Care Teams Medical Library Assistant Relationship Specialty Start Date End Date Becky Mackenzie MD [address] [place] [address] PCP - General Family Medicine 06/12/18 documented as of this encounter
--- OUTSIDE RECORDS SUMMARY | 2025-02-06 12:49 | XMS_ITS | Encounter Summary ---
Author Organization [employer] Address 75 [facility] 7 [place] [address] Care Team Providers Care Hollock Maker Name Role Phone Becky Mackenzie MD Primary Care Provider [phone] Reason for Visit * Reason Onset Date Comments Med Refill 01/11/2025 Encounter Details Date Type Department Care Team ([facility] st Contact Info) Description 01/11/2025 Refill [facility] 230 [place], [place] [phone] Becky Mackenzie MD [address] [place] [address] Moderate persistent asthma without complication Social History [...] Description 05/16/2025 2:45 PM EST Office Visit [facility] [address] [place] [address] Cherelle Dinero MD [address] [place] [phone] documented as of this encounter Visit Diagnoses Diagnosis Moderate persistent asthma without complication documented in this encounter Care Teams Hollock Maker Relationship Specialty Start Date End Date Becky Mackenzie MD [address] [place] [address] PCP - General Family Medicine 06/12/18 documented as of this encounter
[2025-02-11 19:52] LABS: Class Almond 0/1; Class Brazil Nut 0; Class Cashew 0; Class Codfish 0; Class Cow's Milk 0/1; Class Egg white 0; Class Hazelnut 2; Class Macadamia Nut 0/1; Class Peanut 1; Class Salmon 0; Class Scallop 0; Class Sesame Seed 0/1; Class Shrimp 0/1; Class Soybean 0; Class Tuna 0; Class Walnut 0/1; Class Wheat 1; F345-IgE Macadmia Nut 0.17 kU/L
== END ==
LOC: HO.CARD 11:32
PROVIDERS: Absent Provider Nurse Practitioner; PCP Family Medicine; Visit Provider Family Medicine
DX: R00.2 Palpitations (principal); K52.9 Noninfective gastroenteritis and colitis, unspecified; Z79.899 Other long term (current) drug therapy
CPT/HCPCS: 36415; 82785; 86003; 86140; 93225; 99212

== ENCOUNTER → 2025-02-06 11:35 | Outpatient (BNV) | payer MEDICAID, SELFPAY | PROVIDERS: Absent Provider Nurse Practitioner; PCP Family Medicine; Visit Provider Internal Medicine Cardiovascular Disease | DX: R00.0 Tachycardia, unspecified (principal) | CPT/HCPCS: 93227 ==

== ENCOUNTER 2025-02-06 15:02 | Outpatient (AMB) | payer MEDICAID, SELFPAY ==
--- NOTE | 2025-02-06 15:08 | A.OFFVIS_ITS ---
Vital Signs 02/06/25 15:09 Height 4 ft 11 in Weight 225 lb BMI 45.4 BP 132/58 L Blood Pressure Location Lt brachial Position Sitting Pulse 90 Pulse Source Pulse Oximeter Pulse Oximetry (%) 100 Oxygen Delivery Method Room Air Intake Visit Reasons: Abdominal Pains and Diarrhea Intake Note: New pt for initial eval of abd pain and diarrhea. CC: C.O. fecal abn x 2-3 years. Pt states that she has had chronic sx for the last few years and has not had this addressed by a specialist until now. Hx of H Pylori infx. treated by PCP. Recently restarted PPI. Pt also complains of ge neralized abd pain. Dialysis Clinical Manager Required: No Accompanied by: Self / Same As Patient Allergies No Known Allergies Allergy (Verified 02/06/25 15:08) HPI HPI Abdominal Pains and Diarrhea: Details: 29-year-old female here for initial evaluation of abdominal pain and diarrhea. She is referred by [facility]. PMX Obesity Asthma Allergic rhinitis Hypothyroid Diarrhea History of gonorrhea Palpitations * SURGICAL HISTORY Dog bite repair left intter arm childhood * ALLERGIES: NKDA * MD.Voice LABS: Laboratory Tests 06/22/20 12/07/23 10/17/24 12:00 15:00 12:12 WBC 7.0 Hgb 12.7 Hct 40.3 Plt Count 212 Estimated GFR > 60 Total Bilirubin 0.3 AST 20 ALT 22 Alkaline Phosphatase 53 TSH 2.84 Stool H. pylori Ag POSITIVE NEGATIVE Stool Leukocytes, Qual NEGATIVE Tiss Transglutamin IgA <1.0 12/07/23-[address]: ORDERED: GI Panel Test Result Flag Reference Campylobacter Not Detected Not Detect. P. shigelloides Not Detected Not Detect. Salmonella Not Detected Not Detect. Vibrio Not Detected Not Detect. Vibrio Cholerae Not Detected Not Detect. Y. enterocolit. Not Detected Not Detect. E. coli EAEC Not Detected Not Detect. E. coli EPEC Not Detected Not Detect. E. coli ETEC Not Detected Not Detect. E. coli STEC Not Detected Not Detect. E. coli O157 Not applicable Not Detect. E. coli containing the O157 antigen are a subset of Shiga-like toxin-producing E. coli (STEC). Shigella/EIEC Not Detected Not Detect. Cryptosporidium Not Detected Not Detect. Cyclospora Not Detected Not Detect. E. histolytica Not Detected Not Detect. Giardia lamblia Not Detected Not Detect. Adenovirus Not Detected Not Detect. Astrovirus Not Detected Not Detect. Norovirus Not Detected Not Detect. Rotavirus A Not Detected Not Detect. Sapovirus Not Detected Not Detect. TODAY'S VISIT Apparently the patient was seen in 2020 by Ana Sebastian and has not been seen since [facility] Medical History (Updated 02/06/25 @ 15:25 by IVAN Burt) Food allergy Helicobacter pylori infection IBS (irritable bowel syndrome) Chronic diarrhea Asthma dependent on inhaled steroids Family History (Updated 02/06/25 @ 15:16 by Devyn Michael [facility]) Mother IBS (irritable bowel syndrome) Social History Household Members: Family Household Members Other:: single -lives with her family Alcohol intake: current Alcohol intake frequency: a few times a month Current occupational status: unemployed Review of Systems Const Denies fatigue, Denies fever(s), Denies night sweats, Denies poor appetite and Denies weight loss Eyes Details: glasses Reports requires corrective lenses ENT Reports Normal hearing present, Denies dental pain, Reports dysphagia, Denies hearing loss, Denies mouth pain, Denies odynophagia, Denies throat swelling, Denies tongue swelling and Reports other (Dentition adequate) Card Reports no additional complaints Resp Reports no additional complaints GI Details: Reports abdominal pain, Denies melena, Reports bloating, Denies hematochezia, Denies constipation, Denies GI cramping, Reports dysphagia, Denies excessive flatus, Reports early satiety, Reports dyspepsia, Denies heartburn, Reports diarrhea, Denies nausea, Denies odynophagia, Reports vomiting and Denies hem atemesis Skin/Breast Denies pruritus, Denies lesions, Denies rash and Denies jaundice Neuro Reports Normal hearing present and Denies Abnormal speech present Endo Denies fatigue Aller/Immun Denies throat swelling and Denies tongue swelling Physical Exam Vital Signs: Last Vital Signs Pulse 90 02/06/25 15:09 BP 132/58 L 02/06/25 15:09 Pulse Ox 100 02/06/25 15:09 Oxygen Delivery Method Room Air 02/06/25 15:09 BMI result Body Mass Index 45.4 Const General: cooperative, no acute distress, well developed and well groomed Nutritional Appearance: well nourished and obese Orientation/consciousness: oriented to person, oriented to place and oriented to time Limitations: No language barrier HEENT Head: Yes normocephalic and Yes atraumatic Eyes General: appearance normal, both eyes and all related structures Pupils: Equal, round and reactive pupils present Neck Neck: Yes normal visual inspection and Yes no lymphadenopathy Thyroid: asymmetrical (Mildly largest to the right) Resp Effort & Inspection: normal respiratory effort and able to speak in complete sentences Auscultation: clear to auscultation bilaterally Cardio Rate: regular rate Rhythm: regular rhythm Heart sounds: Normal, physiologic split S2 sound present Peripheral pulses: radial pulses present and posterior tibial pulses present GI Inspection: No distended, Yes Abdominal panniculus present and Yes obesity Palpation (GI): Soft to palpation, nontender, no guarding, not rigid and No hepatosplenomegaly present Percussion: Yes normal to percussion Auscultation: normal bowel sounds Rectal Exam - Female: deferred Skin General skin exam: no rashes or lesions noted, turgor normal, skin not dry, no jaundice, No spider nevi and no striae Rashes: no rashes Nails: normal Neuro General: oriented to person, oriented to place and oriented to time Cranial nerves: Yes Equal, round and reactive pupils present and Yes Normal hearing present Speech: No Abnormal speech present Extrem General: Yes normal to inspection, No clubbing, No cyanosis and No edema Psych Appearance: grossly normal and well kempt Mental Status: mental status grossly normal Speech and movement: Normal speech and movement present Affect: normal affect Attitude: cooperative Thought process: Normal thought process present and not confabulating Thought content: Normal thought content present Insight: Limited insight present (Psych) Judgement: Limited judgement present (Psych) Results Reviewed Results Reviewed: Laboratory Tests 06/22/20 12/07/23 10/17/24 12:00 15:00 12:12 WBC 7.0 Hgb 12.7 Hct 40.3 Plt Count 212 Estimated GFR > 60 Total Bilirubin 0.3 AST 20 ALT 22 Alkaline Phosphatase 53 TSH 2.84 Stool H. pylori Ag POSITIVE NEGATIVE Stool Leukocytes, Qual NEGATIVE Tiss Transglutamin IgA <1.0 12/07/23-[address]: ORDERED: GI Panel Test Result Flag Reference Campylobacter Not Detected Not Detect. P. shigelloides Not Detected Not Detect. Salmonella Not Detected Not Detect. Vibrio Not Detected Not Detect. Vibrio Cholerae Not Detected Not Detect. Y. enterocolit. Not Detected Not Detect. E. coli EAEC Not Detected Not Detect. E. coli EPEC Not Detected Not Detect. E. coli ETEC Not Detected Not Detect. E. coli STEC Not Detected Not Detect. E. coli O157 Not applicable Not Detect. E. coli containing the O157 antigen are a subset of Shiga-like toxin-producing E. coli (STEC). Shigella/EIEC Not Detected Not Detect. Cryptosporidium Not Detected Not Detect. Cyclospora Not Detected Not Detect. E. histolytica Not Detected Not Detect. Giardia lamblia Not Detected Not Detect. Adenovirus Not Detected Not Detect. Astrovirus Not Detected Not Detect. Norovirus Not Detected Not Detect. Rotavirus A Not Detected Not Detect. Sapovirus Not Detected Not Detect. Assessment & Plan Assessment & Plan (1) Chronic diarrhea: Code(s): K52.9 - Noninfective gastroenteritis and colitis, unspecified Category: Medical Plan - The patient is a 29-year-old female presenting with gastrointestinal symptoms including chronic diarrhea, abdominal pain, and vomiting occurring over several years. - Begins with a history of Helicobacter pylori infection. This was treated with quadruple therapy and confirmed eradicated. She later experienced thyroid fluctuations, which eventually even doubt 2 hypothyroidism ?which exacerbate symptoms. - The diarrhea presents as mostly watery or ?mud-like?. Recent exacerbation occurred within the last three weeks. - Abdominal pain is reported, varying in location from the lower bilateral region to acute episodic pain in the upper abdomen (epigastrum). - Vomiting episodes happen several times daily, some associated with acid reflux and a sensation of food obstruction at the esophageal level. She frequently can not eat to full satiety or she will vomit. - Denies nausea prior to emesis but describes dysphagia with higher esophageal obstruction. - Previous interventions including dicyclomine provide relief from her bloating and cramping at bedtime, however if she takes it more than once a day she will develop a variation of constipation where she will not move her bowels for vikram ral days, has a bowel movement then that is initially hard followed again by watery diarrhea. - Prior periods of unintended weight loss due to decreased intake are mentioned. Her primary care provider did test her for stool infectious agents which was negative, and a tissue transglutaminase was negative. She does not know of any family history of diarrheal disorder such as Crohn's, Hernandez there colon or stomach cancer. She has 2 sisters 1 of whom is allergic to nuts and the other was allergic to apples. The patient notes that she seems to be somewhat lactose intolerant as milk will set off her symptoms awhile she tolerates yogurt well. She also has quite a bit of trouble with acid he foods irritating her throat and epigastrium, and has generalized diarrhea and stomach problems when she eats beef, greens, particularly broccoli, and fried or fatty food. She generally avoids these. She frequently snacks in between meals because she can not eat to full satiety. However she has not exercising the best of nutritional choices in her snacking. I am going to get some stool testing for stool calprotectin and pancreatic a last taste, along with a RAST panel for some basic food allergy testing. I think an ultrasound to see if her gallbladder is part of the problem would be prudent and since she has not had a barium swallow for over 10 years I think will start with this study. Because the diarrhea is the most life limiting problems we did discuss the possibility of going down to 10 mg dicyclomine although in the past this did not seem to give her as adequate controls the 20 m g dose. I think I will give her a trial of twice a day cholestyramine in his this fails we will progress to Carafate. Of course this also depends on the outcome of the testing. I did mention that going forward we may need to consider an EGD/colonoscopy but will wait and see what the more basic testing yields 1st. She is on omeprazole 20 mg daily for generalized start problems and heartburn. Return office visit in 3 weeks Orders: Orders Pancreatic Elastase-1 Today K52.9 - Noninfective gastroenteritis and colitis, unspecified US abdomen complete Today K52.9 - Noninfective gastroenteritis and colitis, unspecified Rast Allergen Today K52.9 - Noninfective gastroenteritis and colitis, unspecified Calprotectin, Fecal Today K52.9 - Noninfective gastroenteritis and colitis, unspecified C Reactive Protein Today K52.9 - Noninfective gastroenteritis and colitis, unspecified FL barium swallow Today K52.9 - Noninfective gastroenteritis and colitis, unspecified Medications: New cholestyramine administer w/meal; avoid other meds within 1hr before or 4-6hr after dose 4 grams PO BID 60 ea 3RF K52.9 - Noninfective gastroenteritis and colitis, unspecified Coding Level of Care Code New Pt Level 3 (04851) Diagnoses Chronic diarrhea K52.9
[2025-02-06 15:09] VITALS: BP 132/58; PULSE 90; O2SAT 100; BMI 45.4
== END 2025-02-06 16:12 | disposition home or self-care (01) ==
LOC: HO.HGI 15:02
PROVIDERS: PCP Family Medicine; Visit Provider Nurse Practitioner
DX: K52.9 Noninfective gastroenteritis and colitis, unspecified (principal)
CPT/HCPCS: 99203

== ENCOUNTER 2025-02-08 11:17 | Outpatient (REF) | payer MEDICAID, SELFPAY ==
--- OUTSIDE RECORDS SUMMARY | 2025-02-08 11:20 | XMS_ITS | Encounter Summary ---
Author Organization [employer] Address [address] [facility] 7 [place] [address] Care Team Providers Care Window And Siding Craftsman Name Role Phone Becky Mackenzie MD Primary Care Provider [phone] Reason for Visit * Reason Onset Date Comments Med Refill 01/13/2025 Encounter Details Date Type Department Care Team ([facility] st Contact Info) Description 01/13/2025 Telephone [facility] 230 [place], [place] [phone] Becky Mackenzie MD [address] [place], [place] [phone] Med Refill Social History Tobacco Use Types [...] Description 05/16/2025 2:45 PM EST Office Visit [facility] 230 [place] [address] Cherelle Dinero MD [address] [place] [address] documented as of this encounter Visit Diagnoses Diagnosis Moderate persistent asthma without complication documented in this encounter Care Teams Window And Siding Craftsman Relationship Specialty Start Date End Date Becky Mackenzie MD [address] [place] [address] PCP - General Family Medicine 06/12/18 documented as of this encounter
--- OUTSIDE RECORDS SUMMARY | 2025-02-08 11:20 | XMS_ITS | Encounter Summary ---
Author Organization [employer] Address [address] [facility] 7 [place] [address] Care Team Providers Care Rn Bariatric Name Role Phone Becky Mackenzie MD Primary Care Provider [phone] Reason for Visit * Reason Onset Date Comments Med Refill 01/11/2025 Encounter Details Date Type Department Care Team ([facility] st Contact Info) Description 01/11/2025 Refill [facility] 230 [place], [place] [phone] Becky Mackenzie MD [address] [place] [address] Moderate persistent asthma without complication Social History Tobacco Use Types Packs/Day Years Used Date Smoking Tobacco: Never Passive Smoke Exposure: Never Smokeless Tobacco: Never Housing Stability Answer Date Recorded What is your housing situation today? I have aan m morejon 10/18/[address] [...] Description 05/16/2025 2:45 PM EST Office Visit [facility] [address] [place] [address] Cherelle Dinero MD [address] [place] [phone] documented as of this encounter Visit Diagnoses Diagnosis Moderate persistent asthma without complication documented in this encounter Care Teams Rn Bariatric Relationship Specialty Start Date End Date Becky Mackenzie MD [address] [place] [address] PCP - General Family Medicine 06/12/18 documented as of this encounter
--- OUTSIDE RECORDS SUMMARY | 2025-02-08 11:20 | XMS_ITS | Encounter Summary ---
Author Organization [employer] Address [address] [place] [address] 7 [place] [address] Care Team Providers Care Caseworker Protective Services Name Role Phone Becky Mackenzie MD Primary Care Provider [phone] Reason for Visit * Reason Onset Date Comments Appointment Request 09/14/2022 Encounter Details Date Type Department Care Team ([facility] st Contact Info) Description 09/14/2022 Telephone [facility] 230 [place], [place] [phone] Becky Mackenzie MD [address] [place], [place] [phone] Appointment Request Social History Tobacco Use Types [...] for an appt. Please contact pt at [phone] documented in this encounter Plan of Treatment Upcoming Encounters Date Type Department Care Team (Late st Contact Info) Description 05/16/2025 2:45 PM EST Office Visit [facility] [address] [place] [address] Cherelle Dinero MD [address] [place] [address] documented as of this encounter Visit Diagnoses Not on filedocumented in this encounter Care Teams Caseworker Protective Services Relationship Specialty Start Date End Date Becky Mackenzie MD [address] [place], [place] [phone] PCP - General Family Medicine 06/12/18 documented as of this encounter
--- OUTSIDE RECORDS SUMMARY | 2025-02-08 11:20 | XMS_ITS | Encounter Summary ---
Author Organization [employer] Address [address] [facility] 7t [place] [address] Care Team Providers Care Digital Color Press Operator Name Role Phone Becky Mackenzie MD Primary Care Provider [phone] Reason for Visit * Reason Comments Med Refill Encounter Details Date Type Department Care Team ([facility] st Contact Info) Description 02/06/[address] [facility] 230 [place], [place] [phone] Becky Mackenzie MD [address] [place] [address] Irritable bowel syndrome with both constipation and [...] Description 05/16/2025 2:45 PM EST Office [address] [facility] [address] [place] [address] Cherelle Dinero MD [address] [place] [address] documented as of this encounter Visit Diagnoses Diagnosis Irritable bowel syndrome with both constipation and diarrhea documented in this encounter Additional Health Concerns Assessment Noted Time PHQ-9 Depression Total Score: 14 025 11:07 AM EDT documented as of this encounter Care Teams Digital Color Press Operator Relationship Specialty Start Date End Date Becky Mackenzie MD [address] [place] [address] PCP - General Family Medicine 06/12/18 documented as of this encounter
--- OUTSIDE RECORDS SUMMARY | 2025-02-08 11:20 | XMS_ITS | Encounter Summary ---
Author Organization [employer] Address 75 [facility] 7t [place] [address] Care Team Providers Care Sales Support Coordinator Name Role Phone Becky Mackenzie MD Primary Care Provider [phone] Encounter Details Date Type Department Care Team (Late st Contact Info) Description 01/24/2025 Orders Only [facility] 230 [place], [place] [phone] Becky Mackenzie MD [address] [place], [place] [phone] Social History Tobacco Use Types Packs/Day Years [...] 2:45 PM EST Office Visit [facility] [address] [place] [address] Cherelle Dinero MD [address] [place] [address] documented as of this encounter Visit Diagnoses Not on filedocumented in this encounter Additional Health Concerns Assessment Noted Time PHQ-9 Depression Total Score: 14 025 11:07 AM EDT documented as of this encounter Care Teams Sales Support Coordinator Relationship Specialty Start Date End Date eBcky Mackenzie MD [address] [place] [address] PCP - General Family Medicine 06/12/18 documented as of this encounter
--- OUTSIDE RECORDS SUMMARY | 2025-02-08 11:20 | XMS_ITS | Encounter Summary ---
Author Organization [employer] [facility] Address [address] [place] [address] 7 [place] [address] Care Team Providers Care Jewelry Sorter Name Role Phone Becky Mackenzie MD Primary Care Provider [phone] Encounter Details Date Type Department Care Team (Late st Contact Info) Description 08/05/2022 Orders Only [facility] MEDICINE [address] [place] [address] [phone] Becky Mackenzie MD [address] [place] [address] [phone] Vision problem (Primary Dx) Social History Tobacco [...] Description 05/16/2025 2:45 PM EST Office Visit [facility] [address] [place] [address] [phone] Cherelle Dinero MD [address] [place] [address] [phone] documented as of this encounter Visit Diagnoses Diagnosis Vision problem- Primary Problems with sight documented in this encounter Care Teams Jewelry Sorter Relationship Specialty Start Date End Date Becky Mackenzie MD [address] [place] [address] PCP - General Family Medicine 06/12/18 documented as of this encounter
--- OUTSIDE RECORDS SUMMARY | 2025-02-08 11:20 | XMS_ITS | Encounter Summary ---
Author Organization [facility] Address [address] [facility] 7t [place] [address] Care Team Providers Care Dish Carrier Name Role Phone Becky Mackenzie MD Primary Care Provider Encounter Details Date Type Department Care Team (Late st Contact Info) Description 01/24/2025 Orders Only [facility] MEDICINE [address] [place], [place] [phone] Becky Mackenzie MD [address] [place], [place] [phone] Moderate persistent asthma without complication Social History [...] Description 05/16/2025 2:45 PM EST Office Visit [facility] [address] [place] [phone] Cherelle Dinero MD [address] [place] [phone] documented as of this encounter Visit Diagnoses Diagnosis Moderate persistent asthma without complication documented in this encounter Additional Health Concerns Assessment Noted Time PHQ-9 Depression Total Score: 14 025 11:07 AM EDT documented as of this encounter Care Teams Dish Carrier Relationship Specialty Start Date End Date Becky Mackenzie MD [address] [place] [phone] PCP - General Family Medicine 06/12/18 documented as of this encounter
--- OUTSIDE RECORDS SUMMARY | 2025-02-08 11:20 | XMS_ITS | Encounter Summary ---
Author Organization [employer] Address [address] [facility] 7 [place] [address] Care Team Providers Care Laundry Housekeeper Name Role Phone Becky Mackenzie MD Primary Care Provider [phone] Encounter Details Date Type Department Care Team (Late st Contact Info) Description 06/09/2022 Abstract [facility] MEDICINE [address] [place], [place] [phone] Becky Mackenzie MD 230 [place], [place] [phone] Social History Tobacco Use Types Packs/Day Years [...] Description 05/16/2025 2:45 PM EST Office Visit [facility]INE [address] [place] [address] Cherelle Dinero MD 230 [place] [address] documented as of this encounter Visit Diagnoses Not on filedocumented in this encounter Care Teams Laundry Housekeeper Relationship Specialty Start Date End Date Becky Mackenzie MD [address] [place] [address] PCP - General Family Medicine 06/12/18 documented as of this encounter
--- OUTSIDE RECORDS SUMMARY | 2025-02-08 11:21 | XMS_ITS | Encounter Summary ---
Author Organization [employer] Address [address] [place] [address] 7 [place] [address] Care Team Providers Care Ballet Company Member Name Role Phone Becky Mackenzie MD Primary Care Provider [phone] Reason for Visit * Reason Comments Med Change Request Encounter Details Date Type Department Care Team ([facility] st Contact Info) Description 06/28/2024 Refill [facility] [address] [place], [place] [phone] Annie Loco MD [address] [place] [address] Irritable bowel syndrome with both constipation and [...] Description 05/16/2025 2:45 PM EST Office Visit [facility] [address] [place] [address] Cherelle Dinero MD [address] [place] [address] documented as of this encounter Visit Diagnoses Diagnosis Irritable bowel syndrome with both constipation and diarrhea documented in this encounter Care Teams Ballet Company Member Relationship Specialty Start Date End Date Becky Mackenzie MD [address] [place] [phone] PCP - General Family Medicine 06/12/18 documented as of this encounter
--- OUTSIDE RECORDS SUMMARY | 2025-02-08 11:21 | XMS_ITS | Encounter Summary ---
Author Organization [email or web address] Address [address] [facility] 7t [place] [address] Care Team Providers Care Tin Stacker Name Role Phone Becky Mackenzie MD Primary Care Provider [phone] Encounter Details Date Type Department Care Team ([facility] st Contact Info) Description 09/12/2024 Abstract [facility]INE [address] [place], [place] [phone] Becky Mackenzie MD [address] [place], [place] [phone] Social History Tobacco Use Types Packs/Day Years [...] 2:45 PM EST Office Visit [facility] MED[facility]INE 230 [place] [address] Cherelle Dinero MD 230 [place] [address] documented as of this encounter Visit Diagnoses Not on filedocumented in this encounter Care Teams Tin Stacker Relationship Specialty Start Date End Date Becky Mackenzie MD [address] [place], [place] [phone] PCP - General Family Medicine 06/12/18 documented as of this encounter
--- OUTSIDE RECORDS SUMMARY | 2025-02-08 11:21 | XMS_ITS | Encounter Summary ---
Author Organization [employer] Address [address] [facility] 7t [place] [address] Care Team Providers Care Store Custodian Name Role Phone Becky Mackenzie MD Primary Care Provider Encounter Details Date Type Department Care Team (Late st Contact Info) Description 02/06/2025 Orders Only GENERIC EXTERNAL DATA DEPARTMENT Provider, Generic External Data Social History Tobacco Use Types Packs/Day Years [...] Description 05/16/2025 2:45 PM EST Office Visit [facility] MEDICINE [address] [place] [address] Cherelle Dinero MD [address] [place], [place] [phone] documented as of this encounter Procedures Procedure Name Priority Date/Time Associated Diagnosis Comments C-REACTIVE PROTEIN Routine 02/06/2025 4: 32 PM EDT documented in this encounter Results * (ABNORMAL) C-reactive Protein (02/06/2025 4:32 PM EDT) C Reactive Protein 0.60(H) < or = 0.50 mg/dL [facility] 02/06/2025 4:32 PM EDT 02/06/2025 4:32 PM EDT us Generic External Data Provider LAB BLOOD ORDERAB LES Final Result [facility] [address] [place] [phone] [phone] documented in this encounter Visit Diagnoses Not on filedocumented in this encounter Additional Health Concerns Assessment Noted Time PHQ-9 Depression Total Score: 14 025 11:07 AM EDT documented as of this encounter Care Teams Store Custodian Relationship Specialty Start Date End Date Becky Mackenzie MD [address] [place], [place] [phone] PCP - General Family Medicine 06/12/18 documented as of this encounter
--- OUTSIDE RECORDS SUMMARY | 2025-02-08 11:21 | XMS_ITS | Clinical Summary ---
Author Organization [employer] Address [address] [place] [address] 7t [place] [address] Care Team Providers Care Rope Twisting Machine Operator Name Role Phone Becky Mackenzie MD Primary Care Provider [phone] Allergies Active Allergy Reactions Criticality Noted Date [...] to their office because it was in [facility] home-sleep study Assessment & Plan (10/27/2022 1:14 [...] AM EDT): -Previously followed by Allergy / camp recreation specialist - Previously on Breo; will try [...] PM EDT): -Previously followed by Allergy / camp recreation specialist -Continue Breo -Continue montelukast -Continue albuterol neb and inhaler prn -Continue appropriate mouth care after inhaler use to prevent oral candidiasis Assessment & Plan (10/31/2022 8:51 AM EDT): -Followed by Allergy / camp recreation specialist -Continue Breo -Continue montelukast -Continue albuterol neb and inhaler prn -Continue appropriate mouth care after inhaler use to prevent oral candidiasis Assessment & Plan (06/12/2022 4:31 PM EST): -Followed by Allergy / camp recreation specialist -Continue Breo -Continue montelukast -Continue albuterol neb and inhaler prn -Continue appropriate mouth care after inhaler use to prevent oral candidiasis Allergic rhinitis 05/22/2012 Assessment & Plan (01/25/2025 6:01 AM EDT): - Previously followed by allergy / camp recreation specialist -Continue loratadine 10 mg daily -Continue montelukast 10 mg at bedtime -Continue triamcinolone nasal Assessment & Plan (10/20/2024 5:54 PM EDT): -Followed by allergy / camp recreation specialist -Continue loratadine 10 mg daily -Continue montelukast 10 mg at bedtime -Continue triamcinolone nasal Assessment & Plan (10/31/2022 8:51 AM EDT): -Followed by allergy / camp recreation specialist -Continue loratadine 10 mg daily -Continue montelukast 10 mg at bedtime -Continue triamcinolone nasal Assessment & Plan (06/09/2022 5:02 AM EST): -Followed by allergy / camp recreation specialist -Continue loratadine 10 mg daily -Continue [...] Date Type Department Care Team Description 02/06/2025 Orders Only GENERIC EXTERNAL DATA DEPARTMENT Provider, Generic External Data 02/06/2025 Refill [facility] [place] [address] Becky Mackenzie MD Irritable bowel syndrome with both constipation and diarrhea 01/25/2025 Refill [facility] [place] [facility] [place] [address] Becky Mackenzie MD Moderate persistent asthma without complication 01/24/2025 Orders Only [facility] [address] Becky Mackenzie MD 01/24/2025 Orders Only [facility] [place] [address] Becky Mackenzie MD Moderate persistent asthma without complication 01/23/2025 10:30 AM EDT Office Visit [facility] [place] [address] Becky Mackenzie MD Routine general medical examination [...] type 01/23/2025 Travel 01/22/2025 Travel 01/22/2025 Telephone [facility] [place] [address] Becky Mackenzie MD chart prep 01/16/2025 Patient Outreach [facility] [place], [place] [phone] Becky Mackenzie MD Pre-visit Planning ((Unable to reach for PVP screening, LVM) to be completed in office ) 01/13/2025 Telephone [facility] [place] [address] Becky Mackenzie MD Med Refill 01/11/[address] [phone] Becky Mackenzie MD Allergic rhinitis, unspecified seasonality, unspecified trigger 01/11/2025 Refill [facility] [address] [place], [place] [phone] Becky Mackenzie MD Moderate persistent asthma without complication 01/06/2025 Refill [facility] [address] [place], [place] [phone] Becky Mackenzie MD Moderate persistent asthma without complication 11/26/2024 Telephone [facility] [address] [place], [place] [phone] Becky Mackenzie MD January recall from Last [...] Description 05/16/2025 2:45 PM EST Office Visit [facility] [address] [place] [address] Cherelle Dinero MD [address] [place], [place] [phone] Health Maintenance Due Date Last Done Comments [...] PROTEIN Routine 02/06/2025 4: 32 PM EDT IMAGE-GUIDED PAP W/AGE BASED SCR PROTOCOLS Routine [...] Relevant to Health Maintenance Results * (ABNORMAL) C-reactive Protein (02/06/2025 4:32 PM EDT) C Reactive Protein 0.60(H) < or = 0.50 mg/dL [facility] 02/06/2025 4:32 PM EDT 02/06/2025 4:32 PM EDT us Generic External Data Provider LAB BLOOD ORDERAB LES Final Result [facility] [address] [place] [address] [phone] * Image-Guided Pap with Age-Based Screening Protocols (10/27/2022 10:45 AM EDT) Comment [employer] Comment: This order for age-based cervical cancer and STI screening follows ACOG guidelines(PB 168, 140, PJX839). See individual assays for performing site location. Clinical Information: None given [facility] LMP: NONE GIVEN [facility] Prev. PAP: NONE GIVEN [facility] Prev. BX: NONE GIVEN [facility] SOURCE: None given [facility] Statement Of Adequacy: [facility] Comment: Satisfactory for evaluation. Endocervical/transformation zone component present. Interpretation /Result: Negative for intraepithelial lesion or malignancy. [facility] COMMENT: This Pap test has been evaluated with computer assisted technology. [facility] [place] [facility]: [employer] [place] [facility] Comment: WXW, CT(ASCP) CT Screening Location: [address] [address] (Always Message) [facility] Comment: EXPLANATORY NOTE: The Pap is a [...] ORDERABLES Final Resul t Performing Organization Address [facility] Co de Phone Number [address], [place] [address] [employer] [address] [place] [phone] * Hepatitis C Antibody with Reflex to HCV, RNA, Quantitative, Real-Time PCR (10/27/2022 10:43 AM EDT) [facility] Hepatitis C Antibody NON-REACT ANABELL NON-REACT ANABELL [employer] [place] [facility] Index 0.49 <1.00 [employer] [place] [facility] Comment: HCV antibody was non-reactive. There is no laboratory evidence of HCV infection. In most cases, no further action is required. However, if recent HCV exposure is suspected, a test for HCV RNA (test code 94225) is suggested. For additional information please refer to http://education.[employer]/faq/JDV31e2 (This link is being provided for informational/ educational purposes only.) Blood Venous blood specimen / Unknown 10/27/2022 10:43 AM EDT 10/27/2022 10:44 AM EDT Narrative [facility] - 10/31/2022 12:57 PM EDT FASTING:NO FASTING: NO Becky Mackenzie MD LAB BLOOD ORDERABLES Final Resul t Performing Organization Address [facility] Co de Phone Number [address], [place] [address] [employer] [place] [employer] [address] [place] [phone] * HIV-1/2 Antigen and Antibodies, Fourth Generation, with Reflexes (10/27/2022 10:43 AM EDT) [facility] HIV Antigen/Antibody, 4th Generation NON-REAC TIVE NON-REAC TIVE [employer] [place] [facility] Comment: HIV-1 antigen and HIV-1/HIV-2 antibodies were [...] purpose. For additional information please refer to http://[employer]/faq/UPI036 (This link is being provided for informational/ educational purposes only.) The performance of this assay has not been clinically validated in patients less than 2 years old. Blood Venous blood specimen / Unknown 10/27/2022 10:43 AM EDT 10/27/2022 10:44 AM EDT Narrative [facility] - 10/31/2022 12:57 PM EDT FASTING:NO FASTING: NO us Becky Mackenzie MD LAB BLOOD ORDERABLES Final Resul t [facility] [address], [place] [address] [employer] [place] [facility] [address] [place] [phone] * (ABNORMAL) Lipid Panel, Standard (06/09/2022 9:55 AM EST) Cholesterol, Total 138 <200 mg/dL [facility] [place] [facility] HDL Cholesterol 47(L) > OR = 50 mg/dL [facility] [place] [facility] Triglycerides 86 <150 mg/dL [facility] [place] [facility] LDL Cholesterol 74 mg/dL (calc) [employer] [place] [facility] Comment: Reference range: <100 Desirable range <100 mg/dL for primary prevention; <70 mg/dL for patients with CHD or diabetic patients with > or = 2 CHD risk factors. LDL-C is now calculated using the Roz calculation, which is a validated novel method providing better accuracy than the Friedewald equation in the estimation of LDL-C. Valentino SHIN et al. IBIS. 2013;310(19): 0674-5620 (http://education.[employer]/faq/HJD212) Chol/HDLC Ratio 2.9 <5.0 (calc) [facility] [place] [facility] Non-HDL Cholesterol 91 <130 mg/dL (calc) [facility] Comment: For patients with diabetes plus 1 [...] BLOOD ORDERABLES Final Resul t [facility] [address] [facility], [place] [address] [employer] [address] [facility], (Nl2) [place] [address] from Last 3 Months or Most Recently Relevant to Health Maintenance Insurance [employer] Care Teams Rope Twisting Machine Operator Relationship Specialty Start Date End Date Becky Mackenzie MD [address] [place] [phone] PCP - General Family Medicine 06/12/18
[2025-02-15 18:59] LABS: Calprotectin, Fecal 139 mcg/g
== END 2025-02-08 11:18 | disposition home or self-care (01) ==
LOC: HO.LNP 11:17
PROVIDERS: Visit Provider Nurse Practitioner
DX: K52.9 Noninfective gastroenteritis and colitis, unspecified (principal)
CPT/HCPCS: 82656; 83993

== ENCOUNTER 2025-02-27 11:54 | Outpatient (AMB) | payer MEDICAID, SELFPAY ==
--- NOTE | 2025-02-27 11:56 | A.OFFVIS_ITS ---
Vital Signs 02/27/25 11:58 Height 4 ft 11 in Weight 226 lb BMI 45.6 BP 112/56 L Blood Pressure Location Lt brachial Position Sitting Pulse 106 H Pulse Source Pulse Oximeter Pulse Oximetry (%) 99 Oxygen Delivery Method Room Air Intake Visit Reasons: 3 week FUV. Chronic diarrhea + abd pain mgmt. Intake Note: Est pt for mgmt of diarrhea + abd pain. CC: Pt denies any changes in sx presentation since last visit. Pt states that she is here to review the results of the RAST panel and her response to the Rx. Ordering Machine Operator Required: No Accompanied by: Self / Same As Patient Allergies hazelnut Allergy (Unknown, Unverified 02/27/25 12:01) Unknown HPI HPI 3 week FUV. Chronic diarrhea + abd pain mgmt.: Details: Assessment & Plan (1) Chronic diarrhea: Code(s): K52.9 - Noninfective gastroenteritis and colitis, unspecified Category: Medical Plan - The patient is a 29-year-old female presenting with gastrointestinal symptoms including chronic diarrhea, abdominal pain, and vomiting occurring over several years. - Begins with a history of Helicobacter pylori infection. This was treated with quadruple therapy and confirmed eradicated. She later experienced thyroid fluctuations, which eventually even doubt 2 hypothyroidism ?which exacerbate symptoms. - The diarrhea presents as mostly watery or ?mud-like?. Recent exacerbation occurred within the last three weeks. - Abdominal pain is reported, varying in location from the lower bilateral region to acute episodic pain in the upper abdomen (epigastrum). - Vomiting episodes happen several times daily, some associated with acid reflux and a sensation of food obstruction at the esophageal level. She frequently can not eat to full satiety or she will vomit. - Denies nausea prior to emesis but describes dysphagia with higher esophageal obstruction. - Previous interventions including dicyclomine provide relief from her bloating and cramping at bedtime, however if she takes it more than once a day she will develop a variation of constipation where she will not move her bowels for several days, has a bowel movement then that is initially hard followed again by watery diarrhea. - Prior periods of unintended weight loss due to decreased intake are mentioned. Her primary care provider did test her for stool infectious agents which was negative, and a tissue transglutaminase was negative. She does not know of any family history of diarrheal disorder such as Crohn's, Hernandez there colon or stomach cancer. She has 2 sisters 1 of whom is allergic to nuts and the other was allergic to apples. The patient notes that she seems to be somewhat lactose intolerant as milk will set off her symptoms awhile she tolerates yogurt well. She also has quite a bit of trouble with acid he foods irritating her throat and epigastrium, and has generalized diarrhea and stomach problems when she eats beef, greens, particularly broccoli, and fried or fatty food. She generally avoids these. She frequently snacks in between meals because she can not eat to full satiety. However she has not exercising the best of nutritional choices in her snacking. I am going to get some stool testing for stool calprotectin and pancreatic a last taste, along with a RAST panel for some basic food allergy testing. I think an ultrasound to see if her gallbladder is part of the problem would be prudent and since she has not had a barium swallow for over 10 years I think will start with this study. Because the diarrhea is the most life limiting problems we did discuss the possibility of going down to 10 mg dicyclomine although in the past this did not seem to give her as adequate controls the 20 mg dose. I think I will give her a trial of twice a day cholestyramine in his this fails we will progress to Carafate. Of course this also depends on the outcome of the testing. I did mention that going forward we may need to consider an EGD/colonoscopy but will wait and see what the more basic testing yields 1st. She is on omeprazole 20 mg daily for generalized start problems and heartburn. Return office visit in 3 weeks Orders: Orders Pancreatic Elastase-1 Today K52.9 - Noninfective gastroenteritis and colitis, unspecified US abdomen complete Today K52.9 - Noninfective gastroenteritis and colitis, unspecified Rast Allergen Today K52.9 - Noninfective gastroenteritis and colitis, unspecified Calprotectin, Fecal Today K52.9 - Noninfective gastroenteritis and colitis, unspecified C Reactive Protein Today K52.9 - Noninfective gastroenteritis and colitis, unspecified FL barium swallow Today K52.9 - Noninfective gastroenteritis and colitis, unspecified Medications: New cholestyramine administer w/meal; avoid other meds within 1hr before or 4-6hr after dose 4 grams PO BID 60 ea 3RF K52.9 - Noninfective gastroenteritis and colitis, unspecified LABS: Laboratory Tests 02/06/25 02/08/25 16:32 09:58 C-Reactive Protein 0.60 H Stool Calprotectin 139 H Stool Pancreat Elastase >800 RAST panel shows he is allergic to almonds, cow's milk, Jacinta nuts, macadamia nuts, peanuts, sesame seeds, shrimp, walnuts, and wheat. BARIUM SWALLOW 06/13/2025 ULTRASOUND OF THE ABDOMEN 04/10/2025 TODAY'S VISIT [facility] Medical History Food allergy Helicobacter pylori infection IBS (irritable bowel syndrome) Chronic diarrhea Asthma dependent on inhaled steroids Family History Mother IBS (irritable bowel syndrome) Social History Household Members: Family Household Members Other:: single -lives with her family Alcohol intake: current Alcohol intake frequency: a few times a month Current occupational status: unemployed Review of Systems Const Denies fatigue, Denies fever(s), Denies night sweats, Denies poor appetite and Denies weight loss Eyes Details: glasses Reports requires corrective lenses ENT Reports Normal hearing present, Denies dental pain, Denies dysphagia, Denies hearing loss, Denies mouth pain, Denies odynophagia, Denies throat swelling, Denies tongue swelling and Reports other (Dentition adequate) Card Reports no additional complaints Resp Reports wheezing GI Details: Denies abdominal pain, Denies melena, Reports bloating, Denies hematochezia, Denies constipation, Denies GI cramping, Denies dysphagia, Denies excessive flatus, Denies early satiety, Reports heartburn, Reports diarrhea, Denies nausea, Denies odynophagia, Denies vomiting and Denies hematemesis Skin/Breast Denies pruritus, Denies lesions, Denies rash and Denies jaundice Neuro Reports Normal hearing present and Denies Abnormal speech present Endo Denies fatigue Aller/Immun Denies throat swelling, Denies tongue swelling and Reports wheezing Physical Exam Vital Signs: Last Vital Signs Pulse 106 H 02/27/25 11:58 BP 112/56 L 02/27/25 11:58 Pulse Ox 99 02/27/25 11:58 Oxygen Delivery Method Room Air 02/27/25 11:58 BMI result Body Mass Index 45.6 Const General: cooperative, no acute distress, well developed and well groomed Nutritional Appearance: well nourished and overweight Orientation/consciousness: oriented to person, oriented to place and oriented to time Limitations: No language barrier HEENT Head: Yes normocephalic and Yes atraumatic Eyes General: appearance normal, both eyes and all related structures Pupils: Equal, round and reactive pupils present Neck Neck: Yes normal visual inspection and Yes no lymphadenopathy Thyroid: Thyroid normal Resp Effort & Inspection: normal respiratory effort and able to speak in complete sentences Auscultation: clear to auscultation bilaterally Cardio Rate: regular rate Rhythm: regular rhythm Heart sounds: Normal, physiologic split S2 sound present Peripheral pulses: radial pulses present and posterior tibial pulses present GI Inspection: No distended, No Abdominal panniculus present and Yes obesity Palpation (GI): Soft to palpation, nontender, no guarding, not rigid and No hepatosplenomegaly present Percussion: Yes normal to percussion Auscultation: normal bowel sounds Rectal Exam - Female: deferred Skin General skin exam: no rashes or lesions noted, turgor normal, skin not dry, no jaundice, No spider nevi and no striae Rashes: no rashes Nails: normal Neuro General: oriented to person, oriented to place and oriented to time Cranial nerves: Yes Equal, round and reactive pupils present and Yes Normal hearing present Speech: No Abnormal speech present Extrem General: Yes normal to inspection, No clubbing, No cyanosis and No edema Psych Appearance: grossly normal and well kempt Mental Status: mental status grossly normal Speech and movement: Normal speech and movement present Affect: normal affect Attitude: cooperative Thought process: Normal thought process present and not confabulating Thought content: Normal thought content present Insight: Good insight present (Psych) Judgement: Good judgement present (Psych) Assessment & Plan Assessment & Plan (1) Multiple food allergies: Comment: wheat, walnut, shrimp, sesame seed, peanuts, macademia, cows milk, almonds Code(s): Z91.018 - Allergy to other foods Category: Medical (2) Chronic diarrhea: Code(s): K52.9 - Noninfective gastroenteritis and colitis, unspecified Category: Medical Plan - The patient is a 29-year-old female here for follow-up for diarrhea and bloating. - RAST panel shows multiple food allergies, including wheat, cow's milk, sesame seeds, macadamia nuts, shrimp, and hazelnuts, leading to diarrhea and bloating. - avoiding these foods has cause decrease bloating, but the diarrhea has not yet been affected. However, she is only begun practicing avoidance of her allergy foods for a week. I anticipate that it will take time for her gut to stop being hyper reactive. - An onset of respiratory difficulties has recently required increased use of her inhaler, unaltered by antihistamine treatment. - Her history includes successful treatment for H. pylori infection, albeit unrelated to current complaints. -She has begun transitioning to alternative foods such as goat's butter and coconut milk, with noted challenges in sourcing allergen-free products. I explained to her that while we can give her a medication to stop her diarrhea, this would interfere with the underlying problem which is the inflammation caused in her gut by the food allergies. I think it is important that she go through this long learning curve and learn how to identify hidden sources of allergens for her best long-term health. We do not want to see prison damage to her GI system. Certainly, if she is fastidiously avoiding all of these allergy foods and still having some diarrhea we could consider short course of prednisone or budesonide to see if we can get her gut to stop being hyper reactive. She understands the importance and I also recommend that she joint a celiac support group for her we would allergy in terms of finding foods that are appealing as other suffers generally have the best advice for watch products are taste in work them. She continues on the cholestyramine but 2 packets is too much for her and she is going to reduce it to 1 packet. She utilizes the dicyclomine 3 times a day. She is also on omeprazole 20 mg a day with good relief of her GERD. I also recommend that she see an shrink pit supervisor for more extensive food allergy testing and she is agreeable to this. Apparently she has an shrink pit supervisor she seen in the past and she will contact them. Return office visit in 4 weeks Orders: Referrals GI Procedure Notification K52.9 - Noninfective gastroenteritis and colitis, unspecified Medications: New peg 3350-electrolytes 236-22.74-6.74 -5.86 gram (Golytely) until fecal effluent is clear; do not exceed a total volume of 2,000 mL 240 mL PO Q10M 4,000 mL 0RF 1 day Z12.11 - Encounter for screening for malignant neoplasm of colon omeprazole 20 mg PO QAM 30 caps 6RF epinephrine (EpiPen 2-Jimmie) for 2 doses 0.3 mg (0.3 mL) IM Q10M PRN 2 ea 3RF anaphylaxis Z91.018 - Allergy to other foods dicyclomine 20 mg PO TID 90 tabs 6RF Coding Level of Care Code Est Pt Level 4 (89183) Diagnoses Multiple food allergies Z91.018 Chronic diarrhea K52.9 Time Spent (min) 38
[2025-02-27 11:58] VITALS: BP 112/56; PULSE 106; O2SAT 99; BMI 45.6
--- OUTSIDE RECORDS SUMMARY | 2025-02-27 14:14 | XMS_ITS | Encounter Summary ---
Author Organization [employer] Address [address] [place] [address] [address] [place] [address] Care Team Providers Care Health Science Writer Name Role Phone Bceky Mackenzie MD Primary Care Provider [phone] Reason for Visit * Reason Onset Date Comments Appointment Request 09/14/2022 Encounter Details Date Type Department Care Team ([facility] st Contact Info) Description 09/14/2022 Telephone [facility] [address] [place], [place] [phone] Becky Mackenzie MD [address] [place], [place] [phone] Appointment Request Social History Tobacco Use Types [...] for an appt. Please contact pt at [phone] documented in this encounter Plan of Treatment Upcoming Encounters Date Type Department Care Team (Late st Contact Info) Description 05/16/2025 2:45 PM EST Office Visit [facility] [address] [place] [address] Cherelle Dinero MD [address] [place] [address] documented as of this encounter Visit Diagnoses Not on filedocumented in this encounter Care Teams Health Science Writer Relationship Specialty Start Date End Date Becky Mackenzie MD [address] [place], [place] [phone] PCP - General Family Medicine 06/12/18 documented as of this encounter
--- OUTSIDE RECORDS SUMMARY | 2025-02-27 14:14 | XMS_ITS | Encounter Summary ---
Author Organization [employer] Address [address] [facility] 7t [place] [address] Care Team Providers Care Licensed Nursing Assistant Name Role Phone Becky Mackenzie MD Primary Care Provider [phone] Encounter Details Date Type Department Care Team (Late st Contact Info) Description 01/24/2025 Orders Only [facility] [address] [place], [place] [phone] Becky Mackenzie MD [address] [place], [place] [phone] Moderate persistent asthma without complication Social History [...] 05/16/2025 2:45 PM EST Office Visit [facility] [address] [place] [phone] Cherelle Dinero MD [address] [place] [phone] documented as of this encounter Visit Diagnoses Diagnosis Moderate persistent asthma without complication documented in this encounter Additional Health Concerns Assessment Noted Time PHQ-9 Depression Total Score: 14 025 11:07 AM EDT documented as of this encounter Care Teams Licensed Nursing Assistant Relationship Specialty Start Date End Date Becky Mackenzie MD [address] [place] [phone] PCP - General Family Medicine 06/12/18 documented as of this encounter
--- OUTSIDE RECORDS SUMMARY | 2025-02-27 14:14 | XMS_ITS | Encounter Summary ---
Author Organization [employer] Address [address] [facility] 7 [place] [address] Care Team Providers Care Predator Control Trapper Name Role Phone Becky Mackenzie MD Primary Care Provider [phone] Encounter Details Date Type Department Care Team (Late st Contact Info) Description 06/09/2022 Abstract [facility] [address] [place], [place] [phone] Becky Mackenzie MD [address] [place], [place] [phone] Social History Tobacco Use Types Packs/Day Years [...] down Not at all 06/09/2022 9:15 AM [place] Trouble concentrating on things, such [...] Description 05/16/2025 2:45 PM EST Office Visit [facility] [address] [place] [address] Cherelle Dinero MD [address] [place] [address] documented as of this encounter Visit Diagnoses Not on filedocumented in this encounter Care Teams Predator Control Trapper Relationship Specialty Start Date End Date Becky Mackenzie MD [address] [place] [address] PCP - General Family Medicine 06/12/18 documented as of this encounter
--- OUTSIDE RECORDS SUMMARY | 2025-02-27 14:14 | XMS_ITS | Encounter Summary ---
Author Organization [employer] [facility] Address [address] [place] [address] [address] [place] [address] Care Team Providers Care Lime Sludge Kiln Operator Name Role Phone Becky Mackenzie MD Primary Care Provider [phone] Encounter Details Date Type Department Care Team (Late st Contact Info) Description 08/05/2022 Orders Only [facility] [address] [place] [phone] Becky Mackenzie MD [address] [place] [address] [phone] Vision problem (Primary Dx) Social History Tobacco [...] Description 05/16/2025 2:45 PM EST Office Visit [facility] [address] [place] [address] [phone] Cherelle Dinero MD [address] [place] [phone] documented as of this encounter Visit Diagnoses Diagnosis Vision problem- Primary Problems with sight documented in this encounter Care Teams Lime Sludge Kiln Operator Relationship Specialty Start Date End Date Becky Mackenzie MD [address] [place] [address] PCP - General Family Medicine 06/12/18 documented as of this encounter
--- OUTSIDE RECORDS SUMMARY | 2025-02-27 14:14 | XMS_ITS | Encounter Summary ---
Author Organization [employer] Address [address] [facility] 7t [place] [address] Care Team Providers Care Allergy And Immunology Chief Name Role Phone Becky Mackenzie MD Primary Care Provider [phone] Encounter Details Date Type Department Care Team (Late st Contact Info) Description 01/24/2025 Orders Only [facility] [address] [place], [place] [phone] Becky Mackenzie MD [address] [place], [place] [phone] Social History Tobacco Use Types Packs/Day Years [...] Description 05/16/2025 2:45 PM EST Office Visit [facility] [address] [place] [address] Cherelle Dinero MD [address] [place] [address] documented as of this encounter Visit Diagnoses Not on filedocumented in this encounter Additional Health Concerns Assessment Noted Time PHQ-9 Depression Total Score: 14 025 11:07 AM EDT documented as of this encounter Care Teams Allergy And Immunology Chief Relationship Specialty Start Date End Date Becky Mackenzie MD [address] [place] [address] PCP - General Family Medicine 06/12/18 documented as of this encounter
--- OUTSIDE RECORDS SUMMARY | 2025-02-27 14:14 | XMS_ITS | Encounter Summary ---
Author Organization [employer] Address [address] [facility] [address] [place] [address] Care Team Providers Care Column Precaster Name Role Phone Becky Mackenzie MD Primary Care Provider [phone] Reason for Visit * Reason Onset Date Comments Med Refill 01/13/2025 Encounter Details Date Type Department Care Team ([facility] st Contact Info) Description 01/13/2025 Telephone [facility] [address] [place], [place] [phone] Becky Mackenzie MD [address] [place], [place] [phone] Med Refill Social History Tobacco Use Types [...] 2:45 PM EST Office Visit [facility] [address] [place] [address] Cherelle Dinero MD [address] [place] [address] documented as of this encounter Visit Diagnoses Diagnosis Moderate persistent asthma without complication documented in this encounter Care Teams Column Precaster Relationship Specialty Start Date End Date Becky Mackenzie MD [address] [place] [address] PCP - General Family Medicine 06/12/18 documented as of this encounter
--- OUTSIDE RECORDS SUMMARY | 2025-02-27 14:14 | XMS_ITS | Clinical Summary ---
Author Organization [employer] Address [address] [place] [address] 7t [place] [address] Care Team Providers Care Receiving Team Member Name Role Phone Becky Mackenzie MD Primary Care Provider [phone] Allergies Active Allergy Reactions Criticality Noted Date Comments Budesonide-Formoterol Fumarate Cough 01/24 Medications clotrimazole (Mycelex) 10 MG félix TAKE 1 TABLET BY ORAL ROUTE 5 TIMES EVERY DAY DISSOLVED SLOWLY IN THE MOUTH FOR 7-14 DAYS 05/17/20 22 Active triamcinolone (Nasacort) 55 MCG/ACT nasal inhaler USE 1-2 SPRAYS IN EACH NOSTRIL DAILY 05/17/20 22 Active montelukast (Singulair) 10 MG tabletIndicatio ns:Allergic rhinitis, unspecified seasonality, unspecified trigger TAKE 1 TABLET BY MOUTH EVERY DAY IN THE EVENING 90 tablet 3 06/24/19 25 Active clobetasol (Temovate) 0.05 % ointment Apply to affected area once or twice daily. Apply immediately after shower. Dry the area with towel gently before application. 60 g 1 10/18/19 25 Active omeprazole (PriLOSEC) [address] capsule Take 1 capsule (20 mg) by mouth before breakfast. Do not crush or chew. 90 capsule 3 10/18/19 25 026 Active levothyroxine (Synthroid, Levoxyl) 50 MCG tablet TAKE 1 TABLET BY MOUTH EVERY DAY 90 tablet 3 11/06/19 25 Active loratadine (Claritin) 10 MG tabletIndicatio ns:Allergic rhinitis, unspecified seasonality, unspecified trigger Take 1 tablet (10 mg) by mouth Once per day. 90 tablet 1 01/14/20 25 Active Fluticasone Furoate-Vilante rol (Breo Ellipta) 100-25 MCG/ACT aerosol powderIndicatio ns:Moderate persistent asthma without complication Inhale 1 puff Once per day. 60 each 5 01/25/20 25 Active Ventolin HFA 108 (90 Base) MCG/ACT inhalerIndicati ons:Moderate persistent asthma without complication Inhale 2 puffs every 4 (four) hours if needed for wheezing. TAKE 2 PUFFS BY MOUTH EVERY 4 TO 6 HOURS NEEDED 18 g 1 01/27/20 25 Active dicyclomine (Bentyl) 20 MG tabletIndicatio ns:Irritable bowel syndrome with both constipation and diarrhea TAKE 1 TABLET (20 MG) BY MOUTH IN THE MORNING, AT NOON AND AT BEDTIME 270 tablet 02/07/20 25 Active dicyclomine (Bentyl) 20 MG tabletIndicatio ns:Irritable bowel syndrome with both constipation and diarrhea TAKE 1 TABLET (20 MG) BY MOUTH IN THE MORNING, AT NOON AND AT BEDTIME 270 tablet 10/31/19 25 025 Discontinued Active Problems Problem Noted Date Diagnosed Date [...] to their office because it was in [place] - Order home-sleep study Assessment & Plan (10/27/2022 1:14 [...] AM EDT): -Previously followed by Allergy / grants specialist - Previously on Breo; will try [...] PM EDT): -Previously followed by Allergy / grants specialist -Continue Breo -Continue montelukast -Continue albuterol neb and inhaler prn -Continue appropriate mouth care after inhaler use to prevent oral candidiasis Assessment & Plan (10/31/2022 8:51 AM EDT): -Followed by Allergy / grants specialist -Continue Breo -Continue montelukast -Continue albuterol neb and inhaler prn -Continue appropriate mouth care after inhaler use to prevent oral candidiasis Assessment & Plan (06/12/2022 4:31 PM EST): -Followed by Allergy / grants specialist -Continue Breo -Continue montelukast -Continue albuterol neb and inhaler prn -Continue appropriate mouth care after inhaler use to prevent oral candidiasis Allergic rhinitis 05/22/2012 Assessment & Plan (01/25/2025 6:01 AM EDT): - Previously followed by allergy / grants specialist -Continue loratadine 10 mg daily -Continue montelukast 10 mg at bedtime -Continue triamcinolone nasal Assessment & Plan (10/20/2024 5:54 PM EDT): -Followed by allergy / grants specialist -Continue loratadine 10 mg daily -Continue montelukast 10 mg at bedtime -Continue triamcinolone nasal Assessment & Plan (10/31/2022 8:51 AM EDT): -Followed by allergy / grants specialist -Continue loratadine 10 mg daily -Continue montelukast 10 mg at bedtime -Continue triamcinolone nasal Assessment & Plan (06/09/2022 5:02 AM EST): -Followed by allergy / grants specialist -Continue loratadine 10 mg daily -Continue montelukast 10 mg at bedtime -Continue triamcinolone nasal Anxiety and depression 05/22/2012 Assessment & Plan (01/25/2025 6:11 AM EDT): -PHQ-9 score 14; ZECHARIAH-7 score 16 - Patient declines S referral - Patient states she has family [...] DEPARTMENT Provider, Generic External Data 02/06/2025 Refill [facility] [place] [address] Becky Mackenzie MD Irritable bowel syndrome with both constipation and diarrhea 01/25/2025 Refill [facility] [place] [address] Becky Mackenzie MD Moderate persistent asthma without complication 01/24/2025 Orders Only [address] [address] Becky Mackenzie MD 01/24/2025 Orders Only [address] [address] Becky Mackenzie MD Moderate persistent asthma without complication 01/23/2025 10:30 AM EDT Office Visit [facility] [place] [address] Becky Mackenzie MD Routine general medical examination [...] type 01/23/2025 Travel 01/22/2025 Travel 01/22/2025 Telephone [facility] [place] [address] Becky Mackenzie MD chart prep 01/16/2025 Patient Outreach [facility] [place] [address] Becky Mackenzie MD Pre-visit Planning ((Unable to reach for PVP screening, LVM) to be completed in office ) 01/13/2025 Telephone [facility] [place] [address] Becky Mackenzie MD Med Refill 01/11/2025 Refill [facility] [address] [place] [address] Becky Mackenzie MD Allergic rhinitis, unspecified seasonality, unspecified trigger 01/11/2025 Refill [facility] [address] [place] [address] Becky Mackenzie MD Moderate persistent asthma without complication 01/06/2025 Refill [facility] [address] [place], [place] [phone] Becky Mackenzie MD Moderate persistent asthma without complication from Last 3 Months Immunizations Immunization Administration [...] Description 05/16/2025 2:45 PM EST Office Visit [facility] [address] [place] [address] Cherelle Dinero MD [address] [place], [place] [phone] Health Maintenance Due Date Last Done Comments [...] Procedure Name Priority Date/Time Associated Diagnosis Comments RAST ALLERGEN (NON ORDERABLE) Routine 02/06/2025 4:32 PM EDT FOOD AND TREE NUT ALLERGY PANEL WITH REFLEX TO COMPONENT Routine 02/06/2025 4:32 PM EDT C-REACTIVE PROTEIN Routine 02/06/2025 4: 32 PM EDT RAST ALLERGEN (NON ORDERABLE) Routine 02/06/2025 12:00 AM EDT RAST ALLERGEN (NON ORDERABLE) Routine 02/06/2025 12:00 AM EDT IMAGE-GUIDED PAP W/AGE BASED SCR PROTOCOLS [...] Relevant to Health Maintenance Results * (ABNORMAL) Food and Tree Nut Allergy Panel with Reflex to Components (02/06/2025 4:32 PM EDT) Egg White (F1) IgE <0.10 kU/L [facility] Cow's Milk (F2) IgE 0.22(A) kU/L [facility] Codfish (F3) IgE <0.10 kU/L [facility] Wheat (F4) IgE 0.55(A) kU/L [facility] Sesame Seed (F10) IgE 0.13(A) kU/L [facility] Peanut (F13) IgE 0.37(A) kU/L [facility] Soybean (F14) IgE <0.10 kU/L [facility] Hazelnut (F17) IgE 2.29(A) kU/L [facility] [place] (F20) IgE 0.11(A) kU/L [facility] Shrimp (F24) IgE 0.31(A) kU/L [facility] Tuna (F40) IgE <0.10 kU/L [facility] [id number] [place] 0.31(A) kU/L [facility] B595-[id number] Scallop <0.10 kU/L [facility] Class 0/1 [facility] Comment:THIS TEST WAS PERFOR MED AT:[facility] [address] [id number] IRIZARRY MD Class 1 [facility] Comment:THIS TEST WAS PERFOR MED AT:[facility] [address] [place] [address]NYWWRCUATE IRIZARRY MD [place] Class 0/1 [facility] Comment:THIS TEST WAS PERFOR MED AT:[facility] [address] [id number] IRIZARRY MD Class 0 [facility] Comment:THIS TEST WAS PERFOR MED AT:[facility] [address] RACIEL IRIZARRY MD Class 0/1 [facility] Comment:THIS TEST WAS PERFOR MED AT:[facility] [address] RACIEL IRIZARRY MD Class 0 [facility] Comment:THIS TEST WAS PERFOR MED AT:[facility] [address] RACIEL IRIZARRY MD Class 0 [facility] Comment:THIS TEST WAS PERFOR MED AT:[facility] [address] RACIEL IRIZARRY MD Class 0 [facility] Comment:THIS TEST WAS PERFOR MED AT:[facility] [address] RACIEL IRIZARRY MD Class 0/1 [facility] Comment:THIS TEST WAS PERFOR MED AT:[facility] [address] RACIEL IRIZARRY MD Class 1 [facility] Comment:THIS TEST WAS PERFOR MED AT:[facility] [address] RACIEL IRIZARRY MD Class 0 [facility] Comment:THIS TEST WAS PERFOR MED AT:[facility] [address] RACIEL IRIZARRY MD Class 2 [facility] Comment:THIS TEST WAS PERFOR MED AT:[facility] [address] RACIEL IRIZARRY MD Class 0/1 [facility] Comment:THIS TEST WAS PERFOR MED AT:[facility] [address] RACIEL IRIZARRY MD Cashew Nut (F202) IgE <0.10 kU/L [facility] Macadamia Nut (RF345) IgE 0.17(A) kU/L [facility] Class 0/1 [facility] Comment:THIS TEST WAS PERFOR MED AT:[facility] [address] [id number] IRIZARRY MD Hankamer (F41) IgE <0.10 kU/L [facility] [place] Nut (F18) IgE <0.10 kU/L [facility] Class 0 [facility] Comment:THIS TEST WAS PERFOR MED AT:[facility] [address] [id number] IRIZARRY MD Class 0 [facility] Comment:THIS TEST WAS PERFOR MED AT:[facility] [address] [address]JYIZYJOÃO IRIZARRY MD Class 0 [facility] Comment:THIS TEST WAS PERFOR MED AT:[facility] [address] [address]EEDYUTEE IRIZARRY MD 02/06/2025 4:32 PM EDT 02/07/2025 8:10 AM EDT us Generic External Data Provider LAB BLOOD ORDERAB LES Final Result Performing Organization Address [facility]/ZIP Co de Phone Number [facility] [address] [place] [phone] * Rast Allergen (02/06/2025 4:32 PM EDT) Only the most recent of3 resultswithin the time period is included. Rast Allergen SEE NOTE [facility] Comment:SEE SCANNED IN EMR 02/06/2025 4:32 PM EDT 02/06/2025 4:32 PM EDT us Generic External Data Provider HISTORICAL/NON OR DERABLE LABS Final Result Performing Organization Address [facility] Co de Phone Number [facility] [address] [place] [phone] * (ABNORMAL) C-reactive Protein (02/06/2025 4:32 PM EDT) C Reactive Protein 0.60(H) < or = 0.50 mg/dL [facility] 02/06/2025 4:32 PM EDT 02/06/2025 4:32 PM EDT us Generic External Data Provider LAB BLOOD ORDERAB LES Final Result [facility] [address] [place] [phone] * Image-Guided Pap with Age-Based Screening Protocols (10/27/2022 10:45 AM EDT) Comment [employer] Comment: This order for age-based cervical cancer and STI screening follows ACOG guidelines(PB 168, 140, DZH675). See individual assays for performing site location. Clinical Information: None given [facility] LMP: NONE GIVEN [employer] Prev. PAP: NONE GIVEN [facility] Prev. BX: NONE GIVEN [facility] SOURCE: None given [facility]-[employer] Statement Of Adequacy: [employer] Comment: Satisfactory for evaluation. Endocervical/transformation zone component present. Interpretation /Result: Negative for intraepithelial lesion or malignancy. [employer] COMMENT: This Pap test has been evaluated with computer assisted technology. [employer] Cytotechnologi st: [employer] [facility] Comment: WXW, CT(ASCP) CT Screening Location: [address] [address] (Always Message) [employer] Comment: EXPLANATORY NOTE: The Pap is a [...] ORDERABLES Final Resul t Performing Organization Address [facility] Co de Phone Number [facility] [address], [facility] [place] [address] [employer] [address] [place] [phone] * Hepatitis C Antibody with Reflex to HCV, RNA, Quantitative, Real-Time PCR (10/27/2022 10:43 AM EDT) Pathologist [facility] Hepatitis C Antibody NON-REACT ANABELL NON-REACT ANABELL [employer] Index 0.49 <1.00 [employer] Comment: HCV antibody was non-reactive. There is no laboratory evidence of HCV infection. In most cases, no further action is required. However, if recent HCV exposure is suspected, a test for HCV RNA (test code 06563) is suggested. For additional information please refer to http://education.I-frontdesk/faq/AOF68r4 (This link is being provided for informational/ educational purposes only.) Blood Venous blood specimen / Unknown 10/27/2022 10:43 AM EDT 10/27/2022 10:44 AM EDT Narrative [facility] - 10/31/2022 12:57 PM EDT FASTING:NO FASTING: NO Becky Mackenzie MD LAB BLOOD ORDERABLES Final Resul t Performing Organization Address City/[facility] Co de Phone Number [address], [place] [address] [employer] [address] [place] [phone] * HIV-1/2 Antigen and Antibodies, Fourth Generation, with Reflexes (10/27/2022 10:43 AM EDT) Pathologist [facility] HIV Antigen/Antibody, 4th Generation NON-REAC TIVE NON-REAC TIVE [employer] Comment: HIV-1 antigen and HIV-1/HIV-2 antibodies were [...] purpose. For additional information please refer to http://PROFICIO.I-frontdesk/faq/DGR230 (This link is being provided for informational/ educational purposes only.) The performance of this assay has not been clinically validated in patients less than 2 years old. Blood Venous blood specimen / Unknown 10/27/2022 10:43 AM EDT 10/27/2022 10:44 AM EDT Narrative [facility] - 10/31/2022 12:57 PM EDT FASTING:NO FASTING: NO Becky Mackenzie MD LAB BLOOD ORDERABLES Final Resul t [facility] [address], [place] [address] [employer] [address] [place] [phone] * (ABNORMAL) Lipid Panel, Standard (06/09/2022 9:55 AM EST) [facility] Signature Cholesterol, Total 138 <200 mg/dL [employer] HDL Cholesterol 47(L) > OR = 50 mg/dL [employer] Triglycerides 86 <150 mg/dL [employer] LDL Cholesterol 74 mg/dL (calc) [employer] Comment: Reference range: <100 Desirable range <100 mg/dL for primary prevention; <70 mg/dL for patients with CHD or diabetic patients with > or = 2 CHD risk factors. LDL-C is now calculated using the Roz calculation, which is a validated novel method providing better accuracy than the Friedewald equation in the estimation of LDL-C. Valentino SHIN et al. IBIS. 2013;310(19): 1876-3684 (http://education.Personally/faq/BFH369) Chol/HDLC Ratio 2.9 <5.0 (calc) Quirky Non-HDL Cholesterol 91 <130 mg/dL (calc) [employer] Comment: For patients with diabetes plus 1 [...] BLOOD ORDERABLES Final Resul t [facility] [address], [place] [address] [employer] 200 [facility], (N[address]) [place] [phone] from Last 3 Months or Most Recently Relevant to Health Maintenance Insurance [facility] C3 Care Teams Receiving Team Member Relationship Specialty Start Date End Date Becky Mackenzie MD [address] [place] [phone] PCP - General Family Medicine 06/12/18
--- OUTSIDE RECORDS SUMMARY | 2025-02-27 14:14 | XMS_ITS | Encounter Summary ---
Author Organization [employer] Address [address] [facility] 7 [place] [address] Care Team Providers Care Labor Expediter Name Role Phone Becky Mackenzie MD Primary Care Provider [phone] Reason for Visit * Reason Onset Date Comments Med Refill 01/11/2025 Encounter Details Date Type Department Care Team ([facility] st Contact Info) Description 01/11/2025 Refill [facility] [address] [place], [place] [phone] Becky Mackenzie MD [address] [place] [address] Moderate persistent asthma without complication Social History [...] Description 05/16/2025 2:45 PM EST Office Visit [facility] [address] [place] [phone] Cherelle Dinero MD [address] [place] [phone] documented as of this encounter Visit Diagnoses Diagnosis Moderate persistent asthma without complication documented in this encounter Care Teams Labor Expediter Relationship Specialty Start Date End Date Becky Mackenzie MD [address] [place] [address] PCP - General Family Medicine 06/12/18 documented as of this encounter
--- OUTSIDE RECORDS SUMMARY | 2025-02-27 14:15 | XMS_ITS | Encounter Summary ---
Author Organization [employer] Address [address] [facility] 7t [place] [address] Care Team Providers Care Welfare Project Manager Name Role Phone Becky Mackenzie MD Primary Care Provider [phone] Encounter Details Date Type Department Care Team ([facility] st Contact Info) Description 09/12/2024 Abstract [facility] [address] [place], [place] [phone] Becky Mackenzie MD [address] [place], [place] [phone] Social History Tobacco Use Types Packs/Day Years [...] Description 05/16/2025 2:45 PM EST Office Visit [facility] [address] [place] [address] Cherelle Dinero MD [address] [place] [address] documented as of this encounter Visit Diagnoses Not on filedocumented in this encounter Care Teams Welfare Project Manager Relationship Specialty Start Date End Date Becky Mackenzie MD [address] [place], [place] [phone] PCP - General Family Medicine 06/12/18 documented as of this encounter
--- OUTSIDE RECORDS SUMMARY | 2025-02-27 14:15 | XMS_ITS | Encounter Summary ---
Author Organization [employer] Address [address] [place] [address] 7 [place] [address] Care Team Providers Care Front Counter Clerk Name Role Phone Becky Mackenzie MD Primary Care Provider [phone] Reason for Visit * Reason Comments Med Change Request Encounter Details Date Type Department Care Team ([facility] Contact Info) Description 06/28/2024 Refill [facility] [address] [place], [place] [phone] Annie Loco MD [address] [place] [address] Irritable bowel syndrome with both constipation and [...] Description 05/16/2025 2:45 PM EST Office Visit [facility] [address] [place] [address] Cherelle Dinero MD [address] [place] [address] documented as of this encounter Visit Diagnoses Diagnosis Irritable bowel syndrome with both constipation and diarrhea documented in this encounter Care Teams Front Counter Clerk Relationship Specialty Start Date End Date Becky Mackenzie MD [address] [place] [phone] PCP - General Family Medicine 06/12/18 documented as of this encounter
== END 2025-02-27 12:37 | disposition home or self-care (01) ==
LOC: HO.HGI 11:55
PROVIDERS: PCP Family Medicine; Visit Provider Nurse Practitioner
DX: Z91.018 Allergy to other foods (principal); K52.9 Noninfective gastroenteritis and colitis, unspecified
CPT/HCPCS: 99214

== ENCOUNTER → 2025-02-27 11:54 | Outpatient (BNVA) | payer MEDICAID, SELFPAY | PROVIDERS: PCP Family Medicine; Visit Provider Nurse Practitioner | DX: K52.9 Noninfective gastroenteritis and colitis, unspecified (principal); Z91.018 Allergy to other foods | CPT/HCPCS: 99212 ==

== ENCOUNTER 2025-04-10 08:09 | Outpatient (REF) | payer MEDICAID, SELFPAY ==
--- NOTE | ~2025-04-10 | US_ITS ---
CLINICAL HISTORY: K52.9 - Noninfective gastroenteritis and colitis, unspecified US abdomen complete Comparison: None provided Findings: The pancreatic head and proximal body appear within normal limits. The remainder of the pancreas is obscured by overlying bowel gas. The aorta and inferior vena cava are normal caliber. The liver is normal in size and echotexture. There is no intrahepatic bile duct dilatation. The common duct is 2 mm in diameter. The gallbladder is normal. Phrygian cap is noted. There is no sonographic James sign. The main portal vein is antegrade. The right kidney is 10.8 cm in length. The left kidney is 11.6 cm in length. The spleen is normal. IMPRESSION: 1. Normal complete abdominal ultrasound. This document has been electronically signed by: Felipe Betts on 04/11/2025 08:13:07
--- OUTSIDE RECORDS SUMMARY | 2025-04-10 08:33 | XMS_ITS | Encounter Summary ---
Author Organization [employer] Address [address] [facility] 7 [place] [address] Care Team Providers Care Concrete Pump Operator Helper Name Role Phone Becky Mackenzie MD Primary Care Provider Reason for Visit * Reason Onset Date Comments Med Refill 01/13/2025 Encounter Details Date Type Department Care Team ([facility] st Contact Info) Description 01/13/2025 Telephone [facility] [address] [place], [place] [phone] Becky Mackenzie MD [address] [place], [place] [phone] Med Refill Social History Tobacco Use Types [...] Care Team (Late st Contact Info) Description 05/01/2025 1:00 PM EST Nutrition [facility] DIABETES/NTRN [address] [place] [address] [place] [address] 05/16/2025 2:45 PM EST Office Visit [facility] [address] [place] [address] Cherelle Dinero MD [address] [place] [address] documented as of this encounter Visit Diagnoses Diagnosis Moderate persistent asthma without complication documented in this encounter Care Teams Concrete Pump Operator Helper Relationship Specialty Start Date End Date Becky Mackenzie MD [address] [place] [address] PCP - General Family Medicine 06/12/18 documented as of this encounter
--- OUTSIDE RECORDS SUMMARY | 2025-04-10 08:33 | XMS_ITS | Encounter Summary ---
Author Organization [employer] Address [address] [place] [id number] Care Team Providers Care Bilingual Student Tutor Name Role Phone Becky Mackenzie MD Primary Care Provider [phone] Reason for Referral * Consultation (Routine) - Closed Specialty Diagnoses / Procedures Referred By Contac t Referred To Contact Allergy Diagnoses Food allergy Allergic rhinitis, unspecified seasonality, unspecified trigger Moderate persistent asthma without complication Atopic dermatitis, unspecified type Becky Mackenzie MD [address] [place] [phone] Phone: tel: fax: Allergy & Immunology, [facility] ([facility]) [address] [place] [phone] Phone: tel: fax: Referral ID Status Reason Start Date Expiration Date V isits Requested Visits Authorized [id number] Closed Specialty Services Required 03/06/2025 03/06/2026 60 60 Encounter Details Date Type Department Care Team (Late st Contact Info) Description 03/06/2025 Orders Only [facility] [address] [place] [address] [phone] Becky Mackenzie MD [address] [place], [place] [phone] Food allergy (Primary Dx); Allergic rhinitis, unspecified seasonality, unspecified trigger; Moderate persistent asthma without complication; Atopic dermatitis, unspecified type Social History Tobacco Use Types Packs/Day Years [...] Info) Description 05/01/2025 1:00 PM EST Nutrition [facility] DIABETES/NTRN [address] [place] [address] Faith Warren, RD [address] [place], [place] [phone] 05/16/2025 2:45 PM EST Office Visit [facility] [address] [place] [address] Cherelle Dinero MD [address] [place] [address] documented as of this encounter Procedures Procedure Name Priority Date/Time Associated Diagnosis Comments AMB REFERRAL TO ALLERGY Routine 03/27/2025 Food allergy Allergic rhinitis, unspecified seasonality, unspecified trigger Moderate persistent asthma without complication Atopic dermatitis, unspecified type documented in this encounter Results * Referral to Allergy (03/27/2025) Becky Mackenzie MD OUTPATIENT REFERRAL ORDERABLES F inal Result documented in this encounter Visit Diagnoses Diagnosis Food allergy- Primary 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
--- OUTSIDE RECORDS SUMMARY | 2025-04-10 08:34 | XMS_ITS | Encounter Summary ---
Author Organization [employer] Address [address] [place] [address] [address] [address] Care Team Providers Care Roll Capper Name Role Phone Becky Mackenzie MD Primary Care Provider [phone] Encounter Details Date Type Department Care Team (Late st Contact Info) Description 08/05/2022 Orders Only [facility] [address] [place] [address] [phone] Becky Mackenzie MD [address] [place] [address] [phone] Vision problem (Primary Dx) Social History Tobacco [...] Info) Description 05/01/2025 1:00 PM EST Nutrition [facility] DIABETES/NTRN [address] [place], [place] [phone] Faith Warren [address] [place] [address] 05/16/2025 2:45 PM EST Office Visit [facility] [address] [place] [address] Cherelle Dinero MD [address] [place] [address] documented as of this encounter Visit Diagnoses Diagnosis Vision problem- Primary Problems with sight documented in this encounter Care Teams Roll Capper Relationship Specialty Start Date End Date Becky Mackenzie MD [address] [place] [address] PCP - General Family Medicine 06/12/18 documented as of this encounter
--- OUTSIDE RECORDS SUMMARY | 2025-04-10 08:34 | XMS_ITS | Encounter Summary ---
Author Organization [employer] Address [address] [place] [address] Care Team Providers Care Molder Setter Name Role Phone Becky Mackenzie MD Primary Care Provider [phone] Encounter Details Date Type Department Care Team (Late st Contact Info) Description 01/24/2025 Orders Only [facility]INE [address] [place], [place] [phone] Becky Mackenzie MD [address] [place], [place] [phone] Social History Tobacco Use Types Packs/Day Years Used Date Smoking Tobacco: Never Passive Smoke Exposure: Never Smokeless Tobacco: Never Depression Answer Date Recorded Patient Health Questionnaire-9 Score 14 01/23/2025 Patient Health Questionnaire-9 Score 14 01/23/2025 Last PHQ-9: Questionnaire Data Not on file 0 01/23/2025 Housing Stability Answer Date Recorded What is your housing situation today? I have ana m morejno 01/23/[address] you li [...] Info) Description 05/01/2025 1:00 PM EST Nutrition [facility] DIABETES/NTRN [address] [place], [place] [phone] Faith Warren [address] [place] [address] 05/16/2025 2:45 PM EST Office Visit [facility] [address] [place] [address] Cherelle Dinero MD [address] [place] [address] documented as of this encounter Visit Diagnoses Not on filedocumented in this encounter Additional Health Concerns Assessment Noted Time PHQ-9 Depression Total Score: 14 025 11:07 AM EDT documented as of this encounter Care Teams Molder Setter Relationship Specialty Start Date End Date Becky Mackenzie MD [address] [place] [address] PCP - General Family Medicine 06/12/18 documented as of this encounter
--- OUTSIDE RECORDS SUMMARY | 2025-04-10 08:34 | XMS_ITS | Encounter Summary ---
Author Organization [employer] Address [address] [facility] [address] [place] [address] Care Team Providers Care Quality Rep Name Role Phone Becky Mackenzie MD Primary Care Provider [phone] Reason for Visit * Reason Onset Date Comments Med Refill 01/11/2025 Encounter Details Date Type Department Care Team ([facility] st Contact Info) Description 01/11/2025 Refill [facility] MEDICINE [address] [place], [place] [phone] Becky Mackenzie MD [address] [place] [address] Moderate persistent asthma without complication Social History [...] Info) Description 05/01/2025 1:00 PM EST Nutrition [facility] CHC DIABETES/NTRN [address] [place] [address] [place] [address] 05/16/2025 2:45 PM EST Office Visit [facility] MED[facility]INE [address] [place] [address] Cherelle Dinero MD [address] [place] [address] documented as of this encounter Visit Diagnoses Diagnosis Moderate persistent asthma without complication documented in this encounter Care Teams Quality Rep Relationship Specialty Start Date End Date Becky Mackenzie MD [address] [place] [address] PCP - General Family Medicine 06/12/18 documented as of this encounter
--- OUTSIDE RECORDS SUMMARY | 2025-04-10 08:34 | XMS_ITS | Encounter Summary ---
Author Organization [employer] Address [address] [place] [address] [address] [place] [address] Care Team Providers Care Surgical Resident Name Role Phone Becky Mackenzie MD Primary Care Provider [phone] Reason for Visit * Reason Onset Date Comments Appointment Request 09/14/2022 Encounter Details Date Type Department Care Team ([facility] st Contact Info) Description 09/14/2022 Telephone [facility] [address] [place], [place] [phone] Becky Mackenzie MD [address] [place], [place] [phone] Appointment Request Social History Tobacco Use Types [...] for an appt. Please contact pt at [phone] documented in this encounter Plan of Treatment Upcoming Encounters Date Type Department Care Team (Late st Contact Info) Description 05/01/2025 1:00 PM EST Nutrition [facility] DIABETES/NTRN [address] [place], [place] [phone] Faith Warren [address] [place] [address] 05/16/2025 2:45 PM EST Office Visit [facility] [address] [place], [place] [phone] Cherelle Dinero MD [address] [place], [place] [phone] documented as of this encounter Visit Diagnoses Not on filedocumented in this encounter Care Teams Surgical Resident Relationship Specialty Start Date End Date Becky Mackenzie MD [address] [place], [place] [phone] PCP - General Family Medicine 06/12/18 documented as of this encounter
--- OUTSIDE RECORDS SUMMARY | 2025-04-10 08:35 | XMS_ITS | Clinical Summary ---
Author Organization [employer] Address [address] [place] [address] 7t [place] [address] Care Team Providers Care Stranner Name Role Phone Becky Mackenzie MD Primary Care Provider [phone] Allergies Active Allergy Reactions Criticality Noted Date Comments Budesonide-Formoterol Fumarate Cough 01/24 Medications clotrimazole (Mycelex) 10 MG félix TAKE 1 TABLET BY ORAL ROUTE 5 TIMES EVERY DAY DISSOLVED SLOWLY IN THE MOUTH FOR 7-14 DAYS 2 Active triamcinolone (Nasacort) 55 MCG/ACT nasal inhaler USE 1-2 SPRAYS IN EACH NOSTRIL DAILY 2 Active montelukast (Singulair) 10 MG tabletIndication s:Allergic rhinitis, unspecified seasonality, unspecified trigger TAKE 1 TABLET BY MOUTH EVERY DAY IN THE EVENING 90 tablet 3 5 Active clobetasol (Temovate) 0.05 % ointment Apply to affected area once or twice daily. Apply immediately after shower. Dry the area with towel gently before application. 60 g 1 5 Active omeprazole (PriLOSEC) [address] capsule Take 1 capsule (20 mg) by mouth before breakfast. Do not crush or chew. 90 capsule 3 5 10/18/19 26 Active levothyroxine (Synthroid, Levoxyl) 50 MCG tablet TAKE 1 TABLET BY MOUTH EVERY DAY 90 tablet 3 5 Active loratadine (Claritin) 10 MG tabletIndication s:Allergic rhinitis, unspecified seasonality, unspecified trigger Take 1 tablet (10 mg) by mouth Once per day. 90 tablet 1 5 Active Fluticasone Furoate-Vilanter ol (Breo Ellipta) 100-25 MCG/ACT aerosol powderIndication s:Moderate persistent asthma without complication Inhale 1 puff Once per day. 60 each 5 5 Active Ventolin HFA 108 (90 Base) MCG/ACT inhalerIndicatio ns:Moderate persistent asthma without complication Inhale 2 puffs every 4 (four) hours if needed for wheezing. TAKE 2 PUFFS BY MOUTH EVERY 4 TO 6 HOURS NEEDED 18 g 1 5 Active dicyclomine (Bentyl) 20 MG tabletIndication s:Irritable bowel syndrome with both constipation and diarrhea TAKE 1 TABLET (20 MG) BY MOUTH IN THE MORNING, AT NOON AND AT BEDTIME 270 tablet 5 Active Active Problems Problem Noted Date Diagnosed [...] to their office because it was in [place] [facility] home-sleep study Assessment & Plan (10/27/2022 1:14 [...] AM EDT): -Previously followed by Allergy / extension service specialist in charge - Previously on Breo; will try SMART [...] PM EDT): -Previously followed by Allergy / extension service specialist in charge -Continue Breo -Continue montelukast -Continue albuterol neb and inhaler prn -Continue appropriate mouth care after inhaler use to prevent oral candidiasis Assessment & Plan (10/31/2022 8:51 AM EDT): -Followed by Allergy / extension service specialist in charge -Continue Breo -Continue montelukast -Continue albuterol neb and inhaler prn -Continue appropriate mouth care after inhaler use to prevent oral candidiasis Assessment & Plan (06/12/2022 4:31 PM EST): -Followed by Allergy / extension service specialist in charge -Continue Breo -Continue montelukast -Continue albuterol neb and inhaler prn -Continue appropriate mouth care after inhaler use to prevent oral candidiasis Allergic rhinitis 05/22/2012 Assessment & Plan (01/25/2025 6:01 AM EDT): - Previously followed by allergy / extension service specialist in charge -Continue loratadine 10 mg daily -Continue montelukast 10 mg at bedtime -Continue triamcinolone nasal Assessment & Plan (10/20/2024 5:54 PM EDT): -Followed by allergy / extension service specialist in charge -Continue loratadine 10 mg daily -Continue montelukast 10 mg at bedtime -Continue triamcinolone nasal Assessment & Plan (10/31/2022 8:51 AM EDT): -Followed by allergy / extension service specialist in charge -Continue loratadine 10 mg daily -Continue montelukast 10 mg at bedtime -Continue triamcinolone nasal Assessment & Plan (06/09/2022 5:02 AM EST): -Followed by allergy / extension service specialist in charge -Continue loratadine 10 mg daily -Continue montelukast [...] Encounters Date Type Department Care Team Description 03/06/2025 Orders Only [facility] MEDIC[facility] [address] [place] [address] Becky Mackenzie MD Food allergy (Primary Dx); Allergic rhinitis, unspecified seasonality, unspecified trigger; Moderate persistent asthma without complication; Atopic dermatitis, unspecified type 02/06/2025 Orders Only GENERIC EXTERNAL DATA DEPARTMENT Provider, Generic External Data 02/06/2025 Refill [facility] [place] [address] Becky Mackenzie MD Irritable bowel syndrome with both constipation and diarrhea 01/25/2025 Refill [facility] [address] [place] [address] Becky Mackenzie MD Moderate persistent asthma without complication 01/24/2025 Orders Only [facility] [address] [place] [address] Becky Mackenzie MD 01/24/2025 Orders Only [address] [address] Becky Mackenzie MD Moderate persistent asthma without complication 01/23/2025 10:30 AM EDT Office Visit [address] [address] Becky Mackenzie MD Routine general medical examination [...] type 01/23/2025 Travel 01/22/2025 Travel 01/22/[address] [address] Becky Mackenzie MD chart prep 01/16/2025 Patient Outreach [address] [phone] Becky Mackenzie MD Pre-visit Planning ((Unable to reach for PVP screening, LVM) to be completed in office ) 01/13/[address] [address] Becky Mackenzie MD Med Refill 01/11/2025 Refill [facility] [address] [place] [address] Becky Mackenzie MD Allergic rhinitis, unspecified seasonality, unspecified trigger 01/11/2025 Refill [facility] [address] [place] [address] Becky Mackenzie MD Moderate persistent asthma without [...] Info) Description 05/01/2025 1:00 PM EST Nutrition [facility] DIABETES/NTRN [address] [place] [address] [place], [place] [phone] 05/16/2025 2:45 PM EST Office Visit [facility] [address] [place], [place] [phone] Cherelle Dinero MD [address] [place], [place] [phone] Health Maintenance Due Date Last Done Comments [...] asthma without complication Atopic dermatitis, unspecified type [facility]ST ALLERGEN (NON ORDERABLE) Routine 02/06/2025 4:32 [...] Recently Relevant to Health Maintenance Results * Referral to Allergy (03/27/2025) Becky Mackenzie MD OUTPATIENT REFERRAL ORDERABLES F inal Result * (ABNORMAL) Food and Tree Nut Allergy Panel with Reflex to Components (02/06/2025 4:32 PM EDT) Egg White (F1) IgE <0.10 kU/L [facility] Cow's Milk (F2) IgE 0.22(A) kU/L [facility] Codfish (F3) IgE <0.10 kU/L [facility] Wheat (F4) IgE 0.55(A) kU/L [facility] Sesame Seed (F10) IgE 0.13(A) kU/L [facility] Peanut (F13) IgE 0.37(A) kU/L [facility] Soybean (F14) IgE <0.10 kU/L [facility] Hazelnut (F17) IgE 2.29(A) kU/L [facility] Terry (F20) IgE 0.11(A) kU/L [facility] Shrimp (F24) IgE 0.31(A) kU/L [facility] Tuna (F40) IgE <0.10 kU/L [facility] [id number] Rydal 0.31(A) kU/L [facility] [id number] Scallop <0.10 kU/L [facility] Class 0/1 [facility] Comment:THIS TEST WAS PERFOR MED AT:[facility] [address] [id number] IRIZARRY MD Class 1 [facility] Comment:THIS TEST WAS PERFOR MED AT:[facility] [address] [address]HRLEDTEE IRIZARRY MD Terry Class 0/1 [facility] Comment:THIS TEST WAS PERFOR MED AT:[facility] [address] [address]QOOTMTEE IRIZARRY MD Class 0 [facility] Comment:THIS TEST WAS PERFOR MED AT:[facility] [address] [address]CCEVDJOÃO IRIZARRY MD Class 0/1 [facility] Comment:THIS TEST WAS PERFOR MED AT:[facility] [address] [address]XJKZXJOÃO IRIZARRY MD Class 0 [facility] Comment:THIS TEST WAS PERFOR MED AT:[facility] [address] [address]SGUPDTEE IRIZARRY MD Class 0 [facility] Comment:THIS TEST WAS PERFOR MED AT:[facility] [address] [address]ULAOMTEE IRIZARRY MD Class 0 [facility] Comment:THIS TEST WAS PERFOR MED AT:[facility] [address] [address]MRVKWTEE IRIZARRY MD Class 0/1 [facility] Comment:THIS TEST WAS PERFOR MED AT:[facility] [address] [address]KXVHWTEE IRIZARRY MD Class 1 [facility] Comment:THIS TEST WAS PERFOR MED AT:[facility] [address] [address]WFBAWTEE IRIZARRY MD Class 0 [facility] Comment:THIS TEST WAS PERFOR MED AT:[facility] [address] [address]AFZICTEE IRIZARRY MD Class 2 [facility] Comment:THIS TEST WAS PERFOR MED AT:[facility] [address] RACIEL IRIZARRY MD Class 0/1 [facility] Comment:THIS TEST WAS PERFOR MED AT:[facility] [address] RACIEL IRIZARRY MD Cashew Nut (F202) IgE <0.10 kU/L [facility] Macadamia Nut (RF345) IgE 0.17(A) kU/L [facility] Class 0/1 [facility] Comment:THIS TEST WAS PERFOR MED AT:[facility] [address] RACIEL IRIZARRY MD Jeanerette (F41) IgE <0.10 kU/L [facility] Niles Nut (F18) IgE <0.10 kU/L [facility] Class 0 [facility] Comment:THIS TEST WAS PERFOR MED AT:[facility] [address] RACIEL IRIZARRY MD Class 0 [facility] Comment:THIS TEST WAS PERFOR MED AT:[facility] [address] RACIEL IRIZARRY MD Class 0 [facility] Comment:THIS TEST WAS PERFOR MED AT:[facility] [address] RACIEL IRIZARRY MD 02/06/2025 4:32 PM EDT 02/07/2025 8:10 AM EDT us Generic External Data Provider LAB BLOOD ORDERAB LES Final Result [facility] [address] [place] [address] [phone] * Rast Allergen (02/06/2025 4:32 PM EDT) Only the most recent of3 resultswithin the time period is included. Rast Allergen SEE NOTE [facility] Comment:SEE SCANNED IN EMR 02/06/2025 4:32 PM EDT 02/06/2025 4:32 PM EDT us Generic External Data Provider HISTORICAL/NON OR DERABLE LABS Final Result Performing Organization Address [facility] Co de Phone Number [facility] [address] [place] [phone] * (ABNORMAL) C-reactive Protein (02/06/2025 4:32 PM EDT) C Reactive Protein 0.60(H) < or = 0.50 mg/dL [facility] 02/06/2025 4:32 PM EDT 02/06/2025 4:32 PM EDT Generic External Data Provider LAB BLOOD ORDERAB LES Final Result Performing Organization Address [facility] de Phone Number [facility] [address] [place] [phone] * Image-Guided Pap with Age-Based Screening Protocols (10/27/2022 10:45 AM EDT) Comment [facility] Comment: This order for age-based cervical cancer and STI screening follows ACOG guidelines(PB 168, 140, YDD938). See individual assays for performing site location. Clinical Information: None given [facility] LMP: NONE GIVEN [facility] Prev. PAP: NONE GIVEN [facility] Prev. BX: NONE GIVEN [facility] SOURCE: None given [facility] Statement Of Adequacy: [facility] Comment: Satisfactory for evaluation. Endocervical/transformation zone component present. Interpretation /Result: Negative for intraepithelial lesion or malignancy. [employer] COMMENT: This Pap test has been evaluated with computer assisted technology. [facility] Cytotechnologi st: [facility] Comment: WXW, CT(ASCP) CT Screening Location: [address] [address] (Always Message) [facility] Comment: EXPLANATORY NOTE: The Pap is a [...] ORDERABLES Final Resul t Performing Organization Address [facility] Co de Phone Number [address], [facility] [place] [address] [facility] [address] [place] [phone] * Hepatitis C Antibody with Reflex to HCV, RNA, Quantitative, Real-Time PCR (10/27/2022 10:43 AM EDT) Hepatitis C Antibody NON-REACT ANABELL NON-REACT ANABELL [facility] Index 0.49 <1.00 [facility] Comment: HCV antibody was non-reactive. There is no laboratory evidence of HCV infection. In most cases, no further action is required. However, if recent HCV exposure is suspected, a test for HCV RNA (test code 54446) is suggested. For additional information please refer to http://education.[facility]/faq/SVZ82w6 (This link is being provided for informational/ educational purposes only.) Blood Venous blood specimen / Unknown 10/27/2022 10:43 AM EDT 10/27/2022 10:44 AM EDT Narrative [facility] - 10/31/2022 12:57 PM EDT FASTING:NO FASTING: NO Becky Mackenzie MD LAB BLOOD ORDERABLES Final Resul t Performing Organization Address [facility] Co de Phone Number [address], [place] [address] [facility] [address] [place] [phone] * HIV-1/2 Antigen and Antibodies, Fourth Generation, with Reflexes (10/27/2022 10:43 AM EDT) [facility] HIV Antigen/Antibody, 4th Generation NON-REAC TIVE NON-REAC TIVE [facility] Comment: HIV-1 antigen and HIV-1/HIV-2 antibodies were [...] purpose. For additional information please refer to http://education.[facility]/faq/TTI221 (This link is being provided for informational/ educational purposes only.) The performance of this assay has not been clinically validated in patients less than 2 years old. Blood Venous blood specimen / Unknown 10/27/2022 10:43 AM EDT 10/27/2022 10:44 AM EDT Narrative [facility] - 10/31/2022 12:57 PM EDT FASTING:NO FASTING: NO us Becky Mackenzie MD LAB BLOOD ORDERABLES Final Resul t [facility] [address] [place] [address] [facility] [address] [place] [phone] * (ABNORMAL) Lipid Panel, Standard (06/09/2022 9:55 AM EST) [facility] Cholesterol, Total 138 <200 mg/dL [facility] HDL Cholesterol 47(L) > OR = 50 mg/dL [facility] Triglycerides 86 <150 mg/dL [facility] LDL Cholesterol 74 mg/dL (calc) [facility] Comment: Reference range: <100 Desirable range <100 mg/dL for primary prevention; <70 mg/dL for patients with CHD or diabetic patients with > or = 2 CHD risk factors. LDL-C is now calculated using the Roz calculation, which is a validated novel method providing better accuracy than the Friedewald equation in the estimation of LDL-C. Valentino SHIN et al. IBIS. 2013;310(19): 2827-5607 (http://education.[employer]/faq/PNX962) Chol/HDLC Ratio 2.9 <5.0 (calc) [facility] Non-HDL Cholesterol 91 <130 mg/dL (calc) [facility] Comment: For patients with diabetes plus 1 [...] BLOOD ORDERABLES Final Resul t [facility] [address] [facility], [place] [address] [facility] [address] [facility], (N[address]) [place] [phone] from Last 3 Months or Most Recently Relevant to Health Maintenance [email or web address] Care Teams Stranner Relationship Specialty Start Date End Date Becky Mackenzie MD [address] [place] [phone] PCP - General Family Medicine 06/12/18
--- OUTSIDE RECORDS SUMMARY | 2025-04-10 08:35 | XMS_ITS | Encounter Summary ---
Author Organization [employer] Address [address] [facility] 7t [place] [address] Care Team Providers Care Linux Developer Name Role Phone Becky Mackenzie MD Primary Care Provider [phone] Encounter Details Date Type Department Care Team ([facility] st Contact Info) Description 09/12/2024 Abstract [facility] MEDICINE [address] [place], [place] [phone] Becky Mackenzie MD [address] [place], [place] [phone] Social History Tobacco Use Types Packs/Day Years [...] Info) Description 05/01/2025 1:00 PM EST Nutrition [facility] DIABETES/NTRN [address] [place] [address] Faith Warren, RD [address] [place] [address] 05/16/2025 2:45 PM EST Office Visit [facility] MEDICINE [address] [place] [address] Cherelle Dinero MD [address] [place], [place] [phone] documented as of this encounter Visit Diagnoses Not on filedocumented in this encounter Care Teams Linux Developer Relationship Specialty Start Date End Date Becky Mackenzie MD [address] [place], [place] [phone] PCP - General Family Medicine 06/12/18 documented as of this encounter
--- OUTSIDE RECORDS SUMMARY | 2025-04-10 08:35 | XMS_ITS | Encounter Summary ---
Author Organization [employer] Address [address] [place] [address] 7 [place] [address] Care Team Providers Care Marshmallow Maker Name Role Phone Becky Mackenzie MD Primary Care Provider [phone] Reason for Visit * Reason Comments Med Change Request Encounter Details Date Type Department Care Team ([facility] st Contact Info) Description 06/28/2024 Refill [facility]INE CL[facility]IC [address] [place], [place] [phone] Annie Loco MD [address] [place] [address] Irritable bowel syndrome with both constipation and [...] Info) Description 05/01/2025 1:00 PM EST Nutrition [facility] DIABETES/NTRN [address] [place] [address] [place] [address] 05/16/2025 2:45 PM EST Office Visit [facility] MEDICINE [address] [place] [address] Cherelle Dinero MD [address] [place] [address] documented as of this encounter Visit Diagnoses Diagnosis Irritable bowel syndrome with both constipation and diarrhea documented in this encounter Care Teams Marshmallow Maker Relationship Specialty Start Date End Date Becky Mackenzie MD [address] [place] [address] PCP - General Family Medicine 06/12/18 documented as of this encounter
--- OUTSIDE RECORDS SUMMARY | 2025-04-10 08:35 | XMS_ITS | Encounter Summary ---
Author Organization [employer] Address [address] [facility] 7 [place] [address] Care Team Providers Care Industrial Electrical Engineer Name Role Phone Becky Mackenzie MD Primary Care Provider Encounter Details Date Type Department Care Team (Late st Contact Info) Description 06/09/2022 Abstract [facility] MEDICINE [address] [place], [place] [phone] Becky Mackenzie MD [address] [place], [place] [phone] Social History Tobacco Use Types Packs/Day Years [...] Info) Description 05/01/2025 1:00 PM EST Nutrition [facility] CHC DIABETES/NTRN [address] [place] [address] Faith Warren, KAT [address] [place] [address] 05/16/2025 2:45 PM EST Office Visit [facility] MEDICINE [address] [place] [address] Cherelle Dinero MD [address] [place] [address] documented as of this encounter Visit Diagnoses Not on filedocumented in this encounter Care Teams Industrial Electrical Engineer Relationship Specialty Start Date End Date Becky Mackenzie MD [address] [place] [address] PCP - General Family Medicine 06/12/18 documented as of this encounter
--- OUTSIDE RECORDS SUMMARY | 2025-04-10 08:35 | XMS_ITS | Encounter Summary ---
Author Organization [employer] Address [address] [facility] 7t [place] [address] Care Team Providers Care Stroboscope Operator Name Role Phone Becky Mackenzie MD Primary Care Provider [phone] Encounter Details Date Type Department Care Team (Late st Contact Info) Description 01/24/2025 Orders Only [facility] MEDICINE [address] [place], [place] [phone] Becky Mackenzie MD [address] [place], [place] [phone] Moderate persistent asthma without complication Social History [...] Info) Description 05/01/2025 1:00 PM EST Nutrition [facility] DIABETES/NTRN [address] [place], [place] [phone] Faith Warren [address] [place] [address] 05/16/2025 2:45 PM EST Office Visit [facility] MED[facility]INE [address] [place] [address] Cherelle Dinero MD [address] [place] [phone] documented as of this encounter Visit Diagnoses Diagnosis Moderate persistent asthma without complication documented in this encounter Additional Health Concerns Assessment Noted Time PHQ-9 Depression Total Score: 14 025 11:07 AM EDT documented as of this encounter Care Teams Stroboscope Operator Relationship Specialty Start Date End Date Becky Mackenzie MD [address] [place], [place] [phone] PCP - General Family Medicine 06/12/18 documented as of this encounter
== END 2025-04-10 08:10 | disposition home or self-care (01) ==
LOC: HO.US 08:09
PROVIDERS: PCP Family Medicine; Visit Provider Nurse Practitioner
DX: K52.9 Noninfective gastroenteritis and colitis, unspecified (principal)
CPT/HCPCS: 76700

== ENCOUNTER → 2025-04-10 08:10 | Outpatient (BNV) | payer MEDICAID, SELFPAY | PROVIDERS: PCP Family Medicine; Visit Provider Radiology Vascular & Interventional Radiology | DX: K52.9 Noninfective gastroenteritis and colitis, unspecified (principal) | CPT/HCPCS: 76700 ==

== ENCOUNTER → 2025-05-21 09:06 | Outpatient (REF) | payer MEDICAID, SELFPAY | LOC: HO.SL 09:06 | PROVIDERS: PCP Family Medicine; Visit Provider Family Medicine | DX: G47.33 Obstructive sleep apnea (adult) (pediatric) (principal) | CPT/HCPCS: 95806 ==

== ENCOUNTER → 2025-05-22 09:30 | Outpatient (BNV) | payer MEDICAID, SELFPAY | PROVIDERS: PCP Family Medicine; Visit Provider Psychiatry & Neurology Neurology | DX: G47.33 Obstructive sleep apnea (adult) (pediatric) (principal) | CPT/HCPCS: 95806 ==